=== PATIENT | male | born 1965 ===

== ENCOUNTER → 2021-05-19 11:36 | Outpatient (BNVA) | payer MEDICAID, SELFPAY | PROVIDERS: PCP Nurse Practitioner Primary Care; Referring Provider Nurse Practitioner Primary Care; Visit Provider Nurse Practitioner Family | DX: K59.04 Chronic idiopathic constipation (principal); K64.9 Unspecified hemorrhoids; N32.9 Bladder disorder, unspecified | CPT/HCPCS: 99202 ==

== ENCOUNTER → 2021-06-23 10:15 | Outpatient (BNVA) | payer MEDICAID, SELFPAY | PROVIDERS: PCP Nurse Practitioner Primary Care; Referring Provider Nurse Practitioner Primary Care; Visit Provider Nurse Practitioner Family | DX: Z12.11 Encounter for screening for malignant neoplasm of colon (principal); K59.04 Chronic idiopathic constipation | CPT/HCPCS: 99212 ==

== ENCOUNTER 2021-07-30 12:35 | Emergency (ER) | payer MEDICAID, SELFPAY ==
[2021-07-30 14:00] VITALS: BP 188/83; PULSE 68; RESP 18; TEMP 36.3; O2SAT 99; BMI 36.5
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
== END 2021-07-30 15:20 | disposition home or self-care (01) ==
PROVIDERS: Emergency Provider Emergency Medicine; PCP Nurse Practitioner Primary Care
DX: S16.1XXA Strain of muscle, fascia and tendon at neck level, initial encounter (principal); V43.52XA Car driver injured in collision with other type car in traffic accident, initial encounter; Y93.89 Activity, other specified; Y92.414 Local residential or business street as the place of occurrence of the external cause; Y99.8 Other external cause status
CPT/HCPCS: 99283

== ENCOUNTER → 2021-08-27 13:45 | Outpatient (BNVA) | payer MEDICAID, SELFPAY | PROVIDERS: PCP Nurse Practitioner Primary Care; Visit Provider Urology | DX: N40.1 Benign prostatic hyperplasia with lower urinary tract symptoms (principal); R33.9 Retention of urine, unspecified; R39.11 Hesitancy of micturition; R39.12 Poor urinary stream | CPT/HCPCS: 99202 ==

== ENCOUNTER 2021-09-23 10:30 | Day surgery (SDC) | payer MEDICAID, SELFPAY ==
[2021-09-18 11:57] VITALS: BMI 36.5
--- NOTE | 2021-09-22 11:46 | P.CONAN_ITS ---
Documented by User: Arianna Oliver NP 09/22/21 11:46 HPI - Anesthesia Eval Consult details Narrative: 56yo M for Colonoscopy PMFSH Active Problems Active Problems: All Active Problems (Updated 09/18/21 @ 12:01 by Natalie Santamaria, LUNA) Weak urinary stream (Acute) Incomplete emptying of bladder due to benign prostatic hyperplasia (Acute) Urinary hesitancy (Acute) Past Medical History Medical History Arthritis Diabetes GERD (gastroesophageal reflux disease) High cholesterol Hypertension Family History Family History Father Lung cancer Surgical History Surgical History Hx of foot surgery Hx of foot surgery Social History Social History Household Members: Spouse Alcohol intake: never Patient Tobacco Use Status: Former Tobacco user Quit Date: 2011 Use of substances other than those prescribed or required for medical reasons: No Have you been hit, kicked, punched, or otherwise hurt by someone within the past year? If so, by whom?: No Are you DNR?: No Advance Directives: No Advance Directives Information Provided: Yes Advance Directives on File: No Recently lost weight without trying: No Meds Allergies Allergy/AdvReac Type Severity Reaction Status Date / Time lisinopril Allergy COUGH Verified 09/18/21 11:56 Home Medications Medication Instructions Recorded Confirmed Last Taken Type losartan 50 mg 50 mg PO DAILY 06/23/21 09/18/21 Unknown History tablet tamsulosin 0.4 mg 0.4 mg PO 06/23/21 09/18/21 Unknown History capsule BEDTIME famotidine 20 mg 1 tab PO BEDTIME 09/18/21 09/18/21 Unknown History tablet hydrochlorothiazi 1 tab PO DAILY 09/18/21 09/18/21 Unknown History de 25 mg tablet metformin 500 mg 1 tab PO BID 09/18/21 09/18/21 Unknown History tablet,extended release 24 hr Exam Exam Date and Time: September 22, 2021 1146 Height,Weight and Vital Signs: Height 5 ft 8 in Weight 108.862 kg Assessment and Plan Assessment Anesthesia Assessment: Chart Reviewed Documented by User: Prudence Smith MD 09/23/21 12:33 PMFSH Past Medical History Medical History Arthritis Diabetes GERD (gastroesophageal reflux disease) High cholesterol Hypertension Family History Family History Father Lung cancer Surgical History Surgical History Hx of foot surgery Hx of foot surgery History of Problems with Anesthesia: No Social History Social History Household Members: Spouse Alcohol intake: never Patient Tobacco Use Status: Former Tobacco user Quit Date: 2011 Use of substances other than those prescribed or required for medical reasons: No Have you been hit, kicked, punched, or otherwise hurt by someone within the past year? If so, by whom?: No Are you DNR?: No Advance Directives: No Advance Directives Information Provided: Yes Advance Directives on File: No Recently lost weight without trying: No Meds Allergies Allergy/AdvReac Type Severity Reaction Status Date / Time lisinopril Allergy COUGH Verified 09/18/21 11:56 Home Medications Medication Instructions Recorded Confirmed Last Taken Type losartan 50 mg 50 mg PO DAILY 06/23/21 09/18/21 Unknown History tablet tamsulosin 0.4 mg 0.4 mg PO 06/23/21 09/18/21 Unknown History capsule BEDTIME famotidine 20 mg 1 tab PO BEDTIME 09/18/21 09/18/21 Unknown History tablet hydrochlorothiazi 1 tab PO DAILY 09/18/21 09/18/21 Unknown History de 25 mg tablet metformin 500 mg 1 tab PO BID 09/18/21 09/18/21 Unknown History tablet,extended release 24 hr Exam Airway Mallampati Class: III TM Dist: >3cm Neck ROM: Full Loose/Missing/Broken Teeth: Yes, Upper and Lower Heart: RRR Lungs: CTA Assessment and Plan Assessment Anesthesia Assessment: Anesthesia Plan Discussed Final Anesthetic Review History of Problems with Anesthesia: No NPO: Yes ASA Class: II Final Preanesthetic Review: Meds/Allgs Chart Reviewed, Consent Obtained/Reviewed and Anes Risks/Benef Reviewed Patient Risk: Low Procedure Risk: Low Anesthetic Plan Anesthetic Plan: MAC: Disposition: Standard PACU
[2021-09-23 11:08] VITALS: BP 141/87; PULSE 63; RESP 18; TEMP 36.2; O2SAT 97
--- NOTE | 2021-09-23 11:10 | MHC.SHP ---
Pre-Procedural Eval Section A Date of Service: 09/23/21 Section B Chief Complaint: Screening Relevant Family History (Specify if Yes): No Relevant Social History: None Present Medications: see Short Stay Collaborative assessment Medical History: Significant History (Arthritis Diabetes GERD (gastroesophageal reflux disease) High cholesterol Hypertension) History of Previous Operations: Relevant previous surgery/procedure and date(s) (foot surgery) Allergies: Allergies Allergy/AdvReac Type Severity Reaction Status Date / Time lisinopril Allergy COUGH Verified 09/18/21 11:56 Review of Systems Sugical H&P ROS: Negative: Constitution, Cardiovascular, Respiratory, Neurological, Psychiatric, Hem-Onc, Allergic/Immunologic, Gastrointestinal, Genitourinary, Musculoskeletal, Integumentary, Endocrine and Eyes/Ears/Nose/Throat Exam Surgical H&P Exam: Normal: HEENT, Normal: Heart, Normal: Lungs, Normal: Extremities, Normal: Abdomen, Normal: Skin and Normal: Neurological Plan Diagnosis/Plan: Unchanged I have reviewed the history and physical and performed a pertinent physical examination on my patient. No changes have occurred unless specified.
[2021-09-23 11:24] LABS: Glucose, Whole Blood 125 mg/dL (60-115)
[2021-09-23] MEDS: Lactated Ringers 1,000 ML 100 ML IVCONT (11:33)
--- NOTE | 2021-09-23 12:12 | P.OP_ITS ---
Operative Note Operative Note Date of Service: 09/23/21 Narrative: Operative Information Procedure Description: Colonoscopy COLONOSCOPY Instrument: Olympus variable stiffness pediatric scope 190L Colonoscopy Monitoring: Vital signs and clinical assessment, continuous EKG monitoring, Pulse oximetry, Carbon Dioxide monitoring and blood pressure monitoring were done throughout the procedure. Colon withdrawal time was 8 minutes. Procedure: The patient was placed in the left lateral decubitis position and pre-procedure medications were administered. After a digital rectal examination of the ano-rectum, the video colonoscope was inserted into the rectum and advanced through the colon to the cecum/TI. The colonoscope was slowly withdrawn in a retrograde panoramic fashion and the colon mucosa was carefully examined including a retroflexed view of the rectum. Findings and interventions are described below. Procedure Difficulty: easy Findings: Terminal Ileum-normal Right sided retroflexion was normal Cecum:normal Ascending Colon: normal Transverse Colon -normal Descending Colon:normal Sigmoid Colon: 12 mm semi pedunculated polyp removed with cold snare en bloc and retrieved Rectum: Retroflexion with small inflammed internal hemorrhoids, grade I Anorectum - normal Colon preparation: [place] Bowel Preparation Scale Right colon; 3 Transverse colon: 3 Left colon; 2 (0 = Unprepared colon segment with mucosa not seen due to solid stool that cannot be cleared. 1 = Portion of mucosa of the colon segment seen, but other areas of the colon segment not well seen due to staining, residual stool and/or opaque liquid. 2 = Minor amount of residual staining, small fragments of stool and/or opaque liquid, but mucosa of colon segment seen well. 3 = Entire mucosa of colon segment seen well with no residual staining, small fragments of stool or opaque liquid) Impression and Post Procedure Diagnosis: polyp internal hemorrhoids Plan: High fiber diet leaflet Avoid straining at stool, epsom salts and sitz bath, anusol supps or cream Repeat Colonoscopy in 3-5 years due to polyp or earlier if clinically indicated Above findings were reviewed with the patient and relevant handouts were provided if indicated.
--- NOTE | 2021-09-23 12:12 | PM.OP ---
Brief Operative Note Date of Service: 09/23/21 Pre-op diagnosis: screening colon Post-op diagnosis: same Procedure: see op note Surgeon: Darian Partida MD Anesthesia: MAC Was an Furniture Decals Inspector used for this Procedure?: No Estimated blood loss (mL): 0 Condition: stable Disposition: PACU
[2021-09-23 12:47] VITALS: BP 109/56; PULSE 61; RESP 18; TEMP 36.4; O2SAT 98
[2021-09-23 13:02] VITALS: BP 125/77; PULSE 62; RESP 19; TEMP 36.6; O2SAT 98
== END 2021-09-23 13:52 | disposition home or self-care (01) ==
PROVIDERS: PCP Nurse Practitioner Primary Care; Visit Provider Internal Medicine Gastroenterology
PROC: 0DJD8ZZ Inspection of Lower Intestinal Tract, Via Natural or Artificial Opening Endoscopic (ICD-10-PCS; CPT 45378; principal; 2021-09-23 12:10)
DX: Z12.11 Encounter for screening for malignant neoplasm of colon (principal); D12.5 Benign neoplasm of sigmoid colon; K64.0 First degree hemorrhoids; K59.04 Chronic idiopathic constipation; K21.9 Gastro-esophageal reflux disease without esophagitis; I10 Essential (primary) hypertension; E11.9 Type 2 diabetes mellitus without complications; E78.00 Pure hypercholesterolemia, unspecified; N40.1 Benign prostatic hyperplasia with lower urinary tract symptoms; R39.11 Hesitancy of micturition; R39.14 Feeling of incomplete bladder emptying; R39.12 Poor urinary stream; Z79.899 Other long term (current) drug therapy; Z88.8 Allergy status to other drugs, medicaments and biological substances; Z79.84 Long term (current) use of oral hypoglycemic drugs; Z87.891 Personal history of nicotine dependence
CPT/HCPCS: 45385; 82947; 88305

== ENCOUNTER → 2021-10-06 08:29 | Outpatient (BNVA) | payer MEDICAID, SELFPAY | PROVIDERS: PCP Nurse Practitioner Primary Care; Referring Provider Nurse Practitioner Primary Care; Visit Provider Nurse Practitioner Family | DX: K59.01 Slow transit constipation (principal); K21.9 Gastro-esophageal reflux disease without esophagitis; K64.8 Other hemorrhoids; D36.9 Benign neoplasm, unspecified site; Z98.890 Other specified postprocedural states | CPT/HCPCS: 99212 ==

== ENCOUNTER → 2021-12-24 09:41 | Outpatient (BNVA) | payer MEDICAID, SELFPAY | PROVIDERS: PCP Nurse Practitioner Primary Care; Visit Provider Urology | DX: R39.12 Poor urinary stream (principal); R97.20 Elevated prostate specific antigen [PSA] | CPT/HCPCS: 52000; 99212 ==

== ENCOUNTER → 2022-02-08 13:40 | Outpatient (BNVA) | payer MEDICAID, SELFPAY | PROVIDERS: PCP Nurse Practitioner Primary Care; Referring Provider Nurse Practitioner Primary Care; Visit Provider Nurse Practitioner Family | DX: K59.01 Slow transit constipation (principal); K64.9 Unspecified hemorrhoids; K21.9 Gastro-esophageal reflux disease without esophagitis; Z79.899 Other long term (current) drug therapy | CPT/HCPCS: 99212 ==

== ENCOUNTER 2022-08-26 07:33 | Outpatient (REF) | payer MEDICAID, SELFPAY ==
[2022-08-26 07:46] VITALS: BP 180/89; PULSE 85; RESP 16; TEMP 35.9; O2SAT 99; BMI 36.5
--- NOTE | 2022-08-26 08:29 | W.PM.OPN ---
Operative Note Operative Note Date of Service: 08/26/22 Narrative: Preoperative diagnosis: Elevated PSA Postoperative diagnosis: Elevated PSA 6.1 Procedure: 1. transrectal ultrasound measurement of prostate 2. transrectal ultrasound-guided pudendal nerve block 3. transrectal ultrasound-guided prostate biopsy 12 core Surgeon: Dr. Mati Mistry Anesthetic: Local Indications for procedure: Elevated PSA 6.1 Procedure: After informed consent was verified, the patient was brought into the procedure area and lay left-hand side down on the table. Patient identity confirmed. Perioperative antibiotics confirmed. Safety pause time out performed. BRIONNA performed to dilate rectal sphincter Iodine 10cc with Gel was placed per rectum Ultrasound probe was placed per rectum The prostate was measured in 3 dimensions Total volume equals 105 gm No cystic structures were noted Small calcifications were noted at the surgical margin The prostate was otherwise heterogenous in nature - bilateral swirls of tissue An ultrasound-guided pudendal nerve block was performed using 10 cc of 1% lidocaine. 8 cc was placed at the base and 2 cc of the apex. A 12 core biopsy was performed with 6 cores each side. Two cores were taken at the apex, mid and base. Cores were spaced between lateral and medial. He tolerated the procedure well. Was able to ambulate to bathroom after 5 minutes. Printed instructions regarding antibiotic use and common side effects such as low-grade temperature, potential infection and bleeding were given Pathology: 12 core prostate biopsy.
[2022-08-26 08:50] VITALS: BP 182/86; PULSE 85; RESP 16; O2SAT 99
== END 2022-08-26 07:34 | disposition home or self-care (01) ==
LOC: HO.MS 07:33
PROVIDERS: PCP Nurse Practitioner Primary Care; Visit Provider Urology
PROC: (CPT 55700; principal; 2022-08-26 08:00)
DX: R97.20 Elevated prostate specific antigen [PSA] (principal); N40.1 Benign prostatic hyperplasia with lower urinary tract symptoms; R39.11 Hesitancy of micturition; R33.9 Retention of urine, unspecified; I10 Essential (primary) hypertension; E78.00 Pure hypercholesterolemia, unspecified; E11.9 Type 2 diabetes mellitus without complications; Z79.84 Long term (current) use of oral hypoglycemic drugs; Z79.82 Long term (current) use of aspirin; Z79.899 Other long term (current) drug therapy; Z88.8 Allergy status to other drugs, medicaments and biological substances; Z87.891 Personal history of nicotine dependence
CPT/HCPCS: 55700; 76942; 88305

== ENCOUNTER → 2022-09-02 11:20 | Outpatient (BNVA) | payer MEDICAID, SELFPAY | PROVIDERS: PCP Nurse Practitioner Primary Care; Visit Provider Urology | DX: Z13.89 Encounter for screening for other disorder (principal) ==

== ENCOUNTER 2023-03-01 10:20 | Outpatient (REF) | payer MEDICAID, SELFPAY ==
[2023-03-01 12:03] LABS: Prostate Specific Antigen 7.97 ng/mL (<0.05-4.0)
[2023-03-01 12:04] LABS: PSA,Total (Free>4and<10) 8.07 ng/mL (0.00-4.00)
[2023-03-02 10:04] LABS: Free Prostate Spec Ag 1.3 ng/mL; Percent Free Prostate Spec Ag 18 % (calc) (>25); Prostate Specific Ag Total 7.3 ng/mL (< OR = 4.0)
== END 2023-03-01 10:21 | disposition home or self-care (01) ==
LOC: HO.HHCL 10:20
PROVIDERS: Visit Provider Urology
DX: Z12.5 Encounter for screening for malignant neoplasm of prostate (principal); N13.8 Other obstructive and reflux uropathy; R97.20 Elevated prostate specific antigen [PSA]; N40.1 Benign prostatic hyperplasia with lower urinary tract symptoms
CPT/HCPCS: 36415; 84153; 84154

== ENCOUNTER 2023-03-04 14:03 | Outpatient (AMB) | payer MEDICAID, SELFPAY ==
--- NOTE | 2023-03-04 14:35 | MHC.OFFVIS ---
Intake Intake Visit Reasons: 6M PSA(set) Intake Note: Patient is present for Follow Up PSA Urology Med: Terazosin, Finasteride, Antibiotic Allergy: None Blood Thinner: Aspirin PVR: 41ml Allergies lisinopril Allergy (Verified 03/04/23 14:43) COUGH Medication List - Last Reconciled 03/04/23 by Mati Mistry MD aspirin 325 mg PO DAILY blood sugar diagnostic (FreeStyle Lite Strips) As directed cholecalciferol (vitamin D3) 125 mcg PO DAILY ciprofloxacin HCl 500 mg PO BID 3 days docusate sodium 100 mg PO BEDTIME famotidine 20 mg PO BEDTIME finasteride 5 mg PO DAILY 90 days hydrochlorothiazide 1 tab PO DAILY hydrocortisone 2.5% (Proctosol HC) 1 appl OR BID-QID PRN lancets (FreeStyle Lancets) As directed lidocaine 5% 1 patch topical DAILY losartan 50 mg PO DAILY losartan 100 mg PO DAILY metformin ER 1 tab PO BID methocarbamol 750 mg PO TID PRN methylcellulose (laxative) (Citrucel) 500 mg PO DAILY sennosides (Natural Senna Laxative) 17.2 mg (2 x 8.6 mg) PO BEDTIME terazosin 5 mg PO BEDTIME 90 days HPI HPI Comments History of Present Illness Details Jered is a pleasant male. He is a patient of Dr. Yadav. He seen for the following urologic conditions - lower urinary tract symptoms - erectile dysfunction PVR 41 Current symptoms Combination therapy with finasteride and terazosin 5 mg Trial sildenafil 20 mg Erectile dysfunction in setting of diabetes Progressive Concurrent diagnoses include hypertension, diabetes Lower urinary tract symptoms Initial symptoms of urinary hesitancy and weakness of stream Ongoing for the past 2-3 years in progressive Was associated with episode of hematuria in March 2021 Cystoscopy 02/10 large bilobar prostate Therapy terazosin and finasteride Cystoscopy 01/10 bilobar hypertrophy PSA 04/11 7.8, 02/10 6.1, 03/13 7.3 18% Prostate biopsy 08/12 NAD 110gm on [facility] Medical History Arthritis Diabetes GERD (gastroesophageal reflux disease) High cholesterol Hypertension Tubular adenoma Surgical History Hx of colonoscopy Hx of foot surgery Hx of foot surgery Family History Father Lung cancer Social History Household Members: Spouse Alcohol intake: never Patient Tobacco Use Status: Former Tobacco user Quit Date: 2011 Review of Systems Const Denies chills and Denies fever(s) Card Reports no additional complaints and Denies syncope Resp Denies cough GI Denies abdominal pain and Denies heartburn Reports as per HPI and Denies change in libido Neuro Denies syncope Psych Denies change in libido Endo Denies change in libido Physical Exam Const General: cooperative, healthy appearing, comfortable and no acute distress Orientation/consciousness: patient oriented x3 HEENT Face and sinus: Yes normal facial exam Mouth: moist mucous membranes Neck Neck: Yes normal visual inspection, Yes full ROM and Yes trachea midline Chest Chest palpation & inspection: normal inspection of the chest Resp Effort & Inspection: normal respiratory effort, able to speak in complete sentences and no respiratory distress GI Inspection: Yes normal to inspection Back/Spine/Pelvis Cervical Spine: normal cervical lordosis Thoracic/Lumbar Spine: thoracic and lumbar spine normal to inspection Skin General skin exam: no rashes or lesions noted Neuro General: patient oriented x3, gait normal, tone normal and moves all extremities Extrem General: Yes normal to inspection and Yes capillary refill normal Office Procedures Post Void Residual Post Residual Void Post Void Residual (PVR): 41 [id number] Void Residual by ultrasound Assessment & Plan Assessment & Plan (1) Erectile dysfunction: Code(s): N52.9 - Male erectile dysfunction, unspecified Plan 2 month follow-up Orders: Orders Prostate Specific Antigen 03/01/23 R97.20 - Elevated prostate specific antigen [PSA] AMB Post Void Residual by ultrasound Today N40.1 - Benign prostatic hyperplasia with lower urinary tract symptoms, R33.9 - Retention of urine, unspecified Medications: New tadalafil 20 mg PO DAILY PRN 30 tabs 0RF sexual activity 30 days N52.9 - Male erectile dysfunction, unspecified Refilled finasteride 5 mg PO DAILY 90 days 90 tabs 1RF N13.8 - Other obstructive and reflux uropathy, N40.1 - Benign prostatic hyperplasia with lower urinary tract symptoms, R33.9 - Retention of urine, unspecified terazosin 5 mg PO BEDTIME 90 days 90 caps 1RF N40.1 - Benign prostatic hyperplasia with lower urinary tract symptoms, R33.9 - Retention of urine, unspecified, R35.0 - Frequency of micturition Patient Instructions: Imaging studies, laboratory and physical exam results were discussed and reviewed in detail. No major barriers to patient understanding were identified. An opportunity to ask questions regarding the treatment plan was provided. All questions were answered. The patient expressed understanding and agreement with the above treatment plan. The patient is aware they should contact our office by phone for worsening of their current condition or the appearance of new urologic symptoms. Compliance is encouraged with any medications and followup testing that is ordered. It is a privilege to participate in the urologic care of your patient. If you have any questions or concerns regarding treatment for the above conditions, or other urologic issues, please do not hesitate to contact me. The office telephone contact is [phone]. This note is constructed using voice recognition software. While every effort has been made to ensure accuracy radiology practitioner assistant errors may have been included. Yours sincerely, Dr Mati Mistry MD, [facility] - Urology Providers of Expert, Compassionate Care for the Genitourinary System Coding Level of Care Code Est Pt Level 4 (11288) Diagnoses Erectile dysfunction N52.9 CPT Codes Post Residual Void - PVR CPT Code: 61058-Nwkv Void Residual by ultrasound ([id number])
== END 2023-03-04 15:17 | disposition home or self-care (01) ==
PROVIDERS: Visit Provider Urology
DX: N52.9 Male erectile dysfunction, unspecified (principal)
CPT/HCPCS: 99214

== ENCOUNTER → 2023-03-04 14:03 | Outpatient (BNVA) | payer MEDICAID, SELFPAY | PROVIDERS: Visit Provider Urology | DX: N52.9 Male erectile dysfunction, unspecified (principal) | CPT/HCPCS: 51798; 99212 ==

== ENCOUNTER 2023-05-20 15:36 | Outpatient (AMB) | payer MEDICAID, SELFPAY ==
--- NOTE | 2023-05-20 15:36 | A.OFFVIS_ITS ---
Intake Intake Visit Reasons: 2m follow up Intake Note: Patient is Present for Telephone Follow Up Urology Med: Finasteride, Tadalafil, Terazosin(Patient is requesting Refill) Antibiotic Allergy: None Blood Thinner: Aspirin Pharam[facility]: [facility] Allergies lisinopril Allergy (Verified 03/04/23 14:43) COUGH Medication List - Last Reconciled 05/20/23 by Mati Mistry MD aspirin 325 mg PO DAILY blood sugar diagnostic (FreeStyle Lite Strips) As directed cholecalciferol (vitamin D3) 125 mcg PO DAILY ciprofloxacin HCl 500 mg PO BID 3 days docusate sodium 100 mg PO BEDTIME famotidine 20 mg PO BEDTIME finasteride 5 mg PO DAILY 90 days hydrochlorothiazide 1 tab PO DAILY hydrocortisone 2.5% (Proctosol HC) 1 appl [place] BID-QID PRN lancets (FreeStyle Lancets) As directed lidocaine 5% 1 patch topical DAILY losartan 50 mg PO DAILY losartan 100 mg PO DAILY metformin ER 1 tab PO BID methocarbamol 750 mg PO TID PRN methylcellulose (laxative) (Citrucel) 500 mg PO DAILY sennosides (Natural Senna Laxative) 17.2 mg (2 x 8.6 mg) PO BEDTIME tadalafil 5 mg PO DAILY 90 days tadalafil 20 mg PO DAILY PRN 30 days terazosin 5 mg PO BEDTIME 90 days HPI HPI Comments History of Present Illness Details Jered is a pleasant male. He is a patient of Dr. Yadav. He seen for the following urologic conditions - lower urinary tract symptoms - erectile dysfunction Telemedicine Evaluation 15 min Consultation DoxBDA Romina Video Combination therapy with finasteride and terazosin 5 mg Weak stream, worsening IPSS, known large prostate Interested in GreenLight laser Would like to proceed Did respond partially to tadalafil high dose. Start 5 mg daily with on demand Erectile dysfunction in setting of diabetes Progressive Concurrent diagnoses include hypertension, diabetes Tadalafil 20 mg on demand Lower urinary tract symptoms Initial symptoms of urinary hesitancy and weakness of stream Ongoing for the past 2-3 years in progressive Was associated with episode of hematuria in March 2021 Cystoscopy 02/10 large bilobar prostate Therapy terazosin and finasteride PSA 04/11 7.8, 02/10 6.1, 03/13 7.3 18% Prostate biopsy 08/12 NAD 110gm on [facility] Medical History Tubular adenoma Arthritis GERD (gastroesophageal reflux disease) High cholesterol Diabetes Hypertension Surgical History Hx of colonoscopy Hx of foot surgery Hx of foot surgery Family History Father Lung cancer Social History Household Members: Spouse Alcohol intake: never Patient Tobacco Use Status: Former Tobacco user Quit Date: 2011 Review of Systems Const All systems reviewed & are unremarkable except as noted in HPI and below Reports no additional complaints Resp Reports no additional complaints GI Reports no additional complaints Reports as per HPI Musc Reports no additional complaints Physical Exam Telemedicine evaluation Appropriate responses Regular breathing rate and rhythm HEENT Head: Yes normal to inspection Ears: hearing grossly normal bilaterally Eyes General: appearance normal, both eyes and all related structures Neck Neck: Yes normal visual inspection Chest Chest palpation & inspection: normal inspection of the chest Resp Effort & Inspection: normal respiratory effort and able to speak in complete sentences Assessment & Plan Assessment & Plan (1) Weak urinary stream: Code(s): R39.12 - Poor urinary stream (2) Bladder outlet obstruction: Code(s): N32.0 - Bladder-neck obstruction (3) Erectile dysfunction associated with type 2 diabetes mellitus: Code(s): E11.69 - Type 2 diabetes mellitus with other specified complication; N52.1 - Erectile dysfunction due to diseases classified elsewhere Plan Add daily tadalafil We discussed the nature of the decision and reasonable options for performing a prostate intervention. Interventions include TURP, GreenLight laser enucleation of the prostate, GreenLight laser ablation of the prostate, transurethral incision of the prostate, and I-Tend prostate procedure. Options such as medical therapy were discussed. The relative uncertainties and benefits related to each alternate procedure were adequately discussed. General surgical risks including, but not limited to, pain, bleeding, infection, myocardial infarction, pulmonary embolus, deep vein thrombosis and cerebrovascular accident which may result in further hospitalization were discussed. Full disclosure of the procedure as well as all major risks, benefits and complications were discussed including but not limited to damage to the urethra or bladder neck, recurrent BPH, retrograde ejaculation, bladder infection, urge, de lizet frequency, incomplete emptying, dysuria, remote chance of erectile dysfunction, epididymitis, and meatal stenosis. The success rate of the procedure was discussed. Success of the procedure in the short-term does not necessarily guarantee that long-term success will be maintained. Suitable follow up will need to be maintained. The patient showed understanding of discussion. An opportunity was provided for questions to be answered and wishes to proceed with the following procedure. - Laser prostatectomy Medications: New tadalafil 5 mg PO DAILY 90 days 90 tabs 0RF sexual activity E11.69 - Type 2 diabetes mellitus with other specified complication, N52.1 - Erectile dysfunction due to diseases classified elsewhere Patient Instructions: Imaging studies, laboratory and physical exam results were discussed and reviewed in detail. No major barriers to patient understanding were identified. An opportunity to ask questions regarding the treatment plan was provided. All questions were answered. The patient expressed understanding and agreement with the above treatment plan. The patient is aware they should contact our office by phone for worsening of their current condition or the appearance of new urologic symptoms. Compliance is encouraged with any medications and followup testing that is ordered. It is a privilege to participate in the urologic care of your patient. If you have any questions or concerns regarding treatment for the above conditions, or other urologic issues, please do not hesitate to contact me. The office telephone contact is [phone]. This note is constructed using voice recognition software. While every effort has been made to ensure accuracy patient services manager errors may have been included. Yours sincerely, Dr Mati Mistry MD, [facility] - Urology Providers of Expert, Compassionate Care for the Genitourinary System Telehealth Telehealth Location of provider rendering services: practice address Location of patient: address on file Patient Identification confirmed using: Name, : Yes Telehealth method: video Patient verbally consented to treatment: Yes Patient verbally consented to billing insurance company: Yes Patient informed of any privacy concerns related to visit: Yes Coding Level of Care Code Tele Est Pt Level 4 (45881) Diagnoses Weak urinary stream R39.12 Bladder outlet obstruction N32.0 Erectile dysfunction associated with type 2 diabetes mellitus E11.69; N52.1
== END 2023-05-20 16:07 | disposition home or self-care (01) ==
LOC: HO.HUSH 15:36
PROVIDERS: PCP Nurse Practitioner Primary Care; Visit Provider Urology
DX: R39.12 Poor urinary stream (principal); N32.0 Bladder-neck obstruction; E11.69 Type 2 diabetes mellitus with other specified complication; N52.1 Erectile dysfunction due to diseases classified elsewhere
CPT/HCPCS: 99214

== ENCOUNTER → 2023-05-20 15:36 | Outpatient (BNVA) | payer MEDICAID, SELFPAY | PROVIDERS: PCP Nurse Practitioner Primary Care; Visit Provider Urology ==

== ENCOUNTER 2023-07-17 01:35 | Inpatient (IN) | payer MEDICAID, SELFPAY ==
[2023-07-17] VITALS (13 sets, daily range): BP systolic 138–204; BP diastolic 63–96; PULSE 51–84; RESP 10–18; TEMP 36.1–36.9; O2SAT 93–99; BMI 36.5
--- NOTE | ~2023-07-17 | US_ITS ---
EXAMINATION: US ABDOMEN LIMITED CLINICAL INFORMATION: Right upper quadrant pain and leukocytosis. COMPARISON: None available. TECHNIQUE: Real-time imaging of the right upper quadrant abdominal viscera. FINDINGS: PANCREAS: The visualized proximal portion of the pancreas is unremarkable. The distal portion is obscured secondary to overlying bowel gas. LIVER: The liver is normal in size. The liver contour is normal. Parenchymal echogenicity is normal. No focal hepatic lesion. There is no intrahepatic biliary duct dilatation seen. GALLBLADDER: Multiple gallstones are present, including at the gallbladder neck. Gallbladder wall appears mildly thickened to 0.5 cm. Trace pericholecystic fluid. Right upper quadrant tenderness was reported during the exam. COMMON BILE DUCT: Normal in caliber measuring 0.5 cm in diameter. RIGHT KIDNEY: No hydronephrosis. No renal calculi or focal parenchymal lesions. The kidney measures 11.2 cm in maximum dimension. FREE FLUID: None. US/US abdomen limited IMPRESSION: Cholelithiasis with mild gallbladder wall thickening and trace pericholecystic fluid, suspicious for acute cholecystitis in the proper clinical setting.
[2023-07-17 02:02] LABS: Mean Corpuscular Hemoglobin 29.5 pg (27.0-33.0)
[2023-07-17 02:03] LABS: Hematocrit 38.5 % (42.0-52.0); Hemoglobin 12.7 g/dl (14.0-18.0); Mean Corpuscular Volume 89.5 fL (80.0-98.0); Mean Platelet Volume 13.3 fL (9.4-12.4); Platelet Count 131 X10*3/uL (160-400)
[2023-07-17 02:12] LABS: PLT ABN DIST 1; WBC ABN SCTR FOR CBC 1
[2023-07-17 02:19] LABS: Alanine Aminotransferase 19 U/L (0-40); Albumin Level 4.6 g/dL (3.5-5.0); Alkaline Phosphatase 74 U/L (39-117); Anion Gap 13 (12-20); Aspartate Amino Transferase 15 U/L (5-37); Bilirubin Direct < 0.2 mg/dL (0.0-0.5); Bilirubin Total 0.2 mg/dL (0.0-1.0); Blood Urea Nitrogen 23 mg/dL (9-16); Calcium 9.8 mg/dL (8.4-10.2); Carbon Dioxide 28 mmol/L (22-29); Chloride 102 mmol/L (96-108); Creatinine Clr Calc Pharmacy 81.2; Estimated Glomerular Filt Rate > 60; Glucose Random 119 mg/dL (60-115); Lipase 30 U/L (8-78); Potassium 3.9 mmol/L (3.3-5.1); Sodium 139 mmol/L (135-145)
[2023-07-17 02:40] LABS: Atypical Lymphs Percent Manual 3 % (0-6); Band Neutrophils Percent 0 % (3-5); Eosinophils Percent Manual 3 % (0-4); Lymphocytes Percent Manual 32 % (20-40); Monocytes Percent Manual 4 % (2-11); Neutrophils Percent Manual 57 % (45-73); Promyelocytes Percent 1 %; RBC Morphology NORMAL
[2023-07-17 02:41] LABS: Large Platelet PRESENT; Platelet Estimate NORMAL (NORMAL); Platelet Morphology Comment NORMAL; Spherocytes 3+ (>5) /OIF
[2023-07-17 02:43] LABS: Atypical Lymph Absolute Manual 0.4 x10*3/uL; Eosinophils Absolute Manual 0.4 X10*3/uL (0.0-0.4); Lymphocytes Absolute Manual 3.9 X10*3/uL (1.2-4.9); Monocytes Absolute Manual 0.5 X10*3/uL (0.1-1.2); Neutrophils Absolute Manual 6.9 X10*3/uL (2.0-8.3); Promyelocytes Absolute 0.1 X10*3/uL; White Blood Count 12.1 X10*3/uL (4.8-10.8)
--- NOTE | 2023-07-17 02:52 | ED.ABDPAIN ---
HPI - Abdominal Pain General Chief Complaint: Abdominal Pain Stated Complaint: stomach pain ? Time Seen by Provider: 07/17/23 02:43 Source: patient Mode of arrival: ambulatory Limitations: no limitations History of Present Illness HPI narrative: A 58-year-old male came in for evaluation of RUQ abdominal pain since 20:00 after eating pizza with pepperoni, had similar pain about 2 weeks ago did not seek medical attention because it did not last that long and it was not severe, patient had nausea and vomiting x3. No diarrhea. Normal bowel movement this morning and passing gas. No history of intra-abdominal surgery. Related Data Home Medications Medication Instructions Recorded Confirmed hydrochlorothiazide 25 mg tablet 1 tab PO DAILY 09/18/21 07/12/23 metformin 500 mg tablet,extended 1 tab PO BID 09/18/21 07/12/23 release 24 hr lidocaine 5 % topical patch 1 patch topical DAILY 10/06/21 07/12/23 losartan 100 mg tablet 100 mg PO DAILY 03/30/22 07/12/23 aspirin 325 mg tablet,delayed 325 mg PO DAILY 08/06/22 07/12/23 release cholecalciferol (vitamin D3) 125 125 mcg PO DAILY 08/06/22 07/12/23 mcg (5,000 unit) capsule blood sugar diagnostic (FreeStyle #10 ea 03/04/23 05/20/23 Lite Strips) lancets 28 gauge (FreeStyle #100 ea 03/04/23 05/20/23 Lancets) Previous Rx's Medication Instructions Recorded methylcellulose (laxative) 500 mg 500 mg PO DAILY #30 tabs 06/23/21 tablet (Citrucel) methocarbamol 750 mg tablet 750 mg PO TID PRN muscle spasm #20 07/30/21 tabs hydrocortisone 2.5 % topical cream 1 appl [place] BID-QID PRN hemorrhoids 10/06/21 with perineal applicator #30 grams (Proctosol HC) docusate sodium 100 mg capsule 100 mg PO BEDTIME #90 caps 02/08/22 famotidine 20 mg tablet 20 mg PO BEDTIME #90 tabs 02/08/22 sennosides 8.6 mg tablet (Natural 17.2 mg (2 x 8.6 mg) PO BEDTIME 02/08/22 Senna Laxative) constipation #180 tabs ciprofloxacin HCl 500 mg tablet 500 mg PO BID 3 days #6 tabs 08/06/22 finasteride 5 mg tablet 5 mg PO DAILY 90 days #90 tabs 03/04/23 terazosin 5 mg capsule 5 mg PO BEDTIME 90 days #90 caps 03/04/23 tadalafil 20 mg tablet 20 mg PO DAILY PRN sexual activity 05/20/23 30 days #30 tabs tadalafil 5 mg tablet 5 mg PO DAILY sexual activity 90 05/20/23 days #90 tabs Allergies Allergy/AdvReac Type Severity Reaction Status Date / Time lisinopril Allergy COUGH Verified 07/17/23 01:42 Review of Systems Review of Systems All other systems are reviewed and are negative Constitutional: Reports as per HPI and Reports no additional constitutional complaints Eyes: Reports as per HPI and Reports no additional eye complaints Reports system reviewed and no additional complaints, except as documented Cardiovascular: Reports as per HPI and Reports no additional cardiovascular complaints Respiratory: Reports as per HPI and Reports no additional respiratory complaints Gastrointestinal: Reports as per HPI and Reports no additional gastrointestinal complaints Genitourinary: Reports no additional female genitourinary complaints Musculoskeletal: Reports no additional musculoskeletal complaints Skin/Breast: Reports system reviewed and no additional complaints, except as docu Psychiatric: Reports no additional psychiatric complaints Endocrine: Reports no additional endocrine complaints Hematologic/Lymphatic: Reports no additional hematologic/lymphatic complaints Allergic/Immunologic: Reports no additional allergic/immunologic complaints Reports system reviewed and no additional complaints, except as documented and Reports Abnormal speech present [facility] Past Medical History Medical History Tubular adenoma Arthritis GERD (gastroesophageal reflux disease) High cholesterol Diabetes Hypertension Surgical History Hx of prostate biopsy Hx of colonoscopy Hx of foot surgery Hx of foot surgery Family History Family History Father Lung cancer Social History Household Members: Spouse Alcohol intake: never Patient Tobacco Use Status: Former Tobacco user Quit Date: 2011 Smoked in Last 30 Days: No Use of substances other than those prescribed or required for medical reasons: No Advance Directives: No Advance Directives Information Provided: Yes Physical Exam ED Vital Signs: Vital Signs - 24 hr 07/17/23 01:36 07/17/23 01:44 07/17/23 04:57 Temperature 97.9 F 98.4 F Pulse Rate 77 58 Respiratory Rate 18 16 Blood Pressure 204/96 H 148/81 H Pulse Oximetry 99 97 Oxygen Delivery Method Room Air Room Air BMI result Body Mass Index 36.5 Vital signs have been reviewed and appear to be correct. Blood pressure elevated. Heart rate normal. Respiratory rate normal. Temperature normal. Oxygen saturation normal. Appearance: Alert. Oriented X3. No acute distress. Head: Normal external exam. Normocephalic. Atraumatic. No Brower signs noted. No raccoon eyes noted Eyes: PERRLA. EOMI. Conjunctiva and sclera normal. Eyelids normal. ENT: TM's Normal. Pharynx normal. Uvula midline. Moist mucous membranes. No trismus noted. No drooling noted. No muffled voice noted. Neck: Normal inspection. Neck supple. FROM. No adenopathy. Thyroid Normal. No meningeal signs. No neck mass noted. CVS: Normal heart rate and rhythm. Heart sound normal. No murmurs noted. Pulses normal throughout. Respiratory: No respiratory distress. Painless inspiration. Breath sounds normal. No wheezes/rales/rhonchi noted. Chest nontender. No accessory muscle usage noted or decreased air movement noted. Abdomen: Soft, RUQ tenderness, no guarding, no rebound tenderness, positive Osorio's sign, Bowel sounds normal in all 4 quadrants. No distention noted. No organomegaly noted. No visible injury noted. Back: No CVA tenderness. Full range of motion noted. Skin: Skin warm and dry. Normal skin color. Normal skin turgor. No rashes/lesions/lacerations noted. Extremities: No lower extremity edema. Extremities exhibit normal range of motion. Extremities nontender. Neuro: Oriented X 3. Cranial nerve exam: II-XII are grossly intact No motor deficit. No sensory deficit. Reflexes normal. Course Reevaluation(s) Reevaluation #1: 58-year-old male with acute cholecystitis was given Zosyn the case was discussed with Dr. Parsons will admit to the surgical service. Time: 05:23 Medical Decision Making Differential Diagnosis Differential Diagnoses: The differential diagnosis associated with the presentation includes (Cholelithiasis, acute cholecystitis, pancreatitis, gastritis, electrolyte abnormality, severe anemia, UTI.) Admission/Observation Consideration of admission/observation: Escalation of care including admission/observation considered Consult Healthcare Provider Management of the patient was discussed with: [employer] Protection Fabricator (Dr. Simons) Lab Data MDM Lab Attestation statement: I reviewed the patient's lab results. 07/17/23 01:57 07/17/23 01:57 Labs: Lab Results 07/17/23 07/17/23 Range/Units 01:57 02:46 WBC 12.1 H (4.8-10.8) X10*3/uL RBC 4.30 L (4.60-5.80) X10*6/uL Hgb 12.7 L (14.0-18.0) g/dl Hct 38.5 L (42.0-52.0) % MCV 89.5 (80.0-98.0) fL MCH 29.5 (27.0-33.0) pg MCHC 33.0 (31.0-36.0) g/dl RDW 12.0 (11.0-16.0) % Plt Count 131 L (160-400) X10*3/uL MPV 13.3 H (9.4-12.4) fL Immature Gran % (Auto) Cancelled Neut % (Auto) Cancelled Lymph % (Auto) Cancelled Kinney % (Auto) Cancelled Eos % (Auto) Cancelled Baso % (Auto) Cancelled Lymph # (Auto) Cancelled Kinney # (Auto) Cancelled Eos # (Auto) Cancelled Baso # (Auto) Cancelled Abs Immat Gran (auto) Cancelled Absolute Neuts (auto) Cancelled Absolute Nucleated RBC 0.000 (0.0-0.012) X10*3/uL Nucleated RBC % (auto) 0.0 (0.0-0.2) /100WBC Neutrophils % (Manual) 57 (45-73) % Band Neutrophils % 0 L (3-5) % Lymphocytes % (Manual) 32 (20-40) % Atypical Lymphs % (Man) 3 (0-6) % Monocytes % (Manual) 4 (2-11) % Eosinophils % (Manual) 3 (0-4) % Promyelocytes % 1 % Abs Neuts (Manual) 6.9 (2.0-8.3) X10*3/uL Lymphocytes # (Manual) 3.9 (1.2-4.9) X10*3/uL Atyp Lymphs # (Manual) 0.4 x10*3/uL Monocytes # (Manual) 0.5 (0.1-1.2) X10*3/uL Eosinophils # (Manual) 0.4 (0.0-0.4) X10*3/uL Promyelocytes # 0.1 X10*3/uL Platelet Estimate NORMAL (NORMAL) Large Platelets PRESENT Plt Morphology Comment NORMAL RBC Morphology NORMAL Spherocytes 3+ (>5) /OIF Sodium 139 (135-145) mmol/L Potassium 3.9 (3.3-5.1) mmol/L Chloride 102 (96-108) mmol/L Carbon Dioxide 28 (22-29) mmol/L Anion Gap 13 (12-20) BUN 23 H (9-16) mg/dL Creatinine 1.20 (0.5-1.4) mg/dL Estim Creat Clear Calc 81.2 Estimated GFR > 60 Random Glucose 119 H (60-115) mg/dL Calcium 9.8 (8.4-10.2) mg/dL Total Bilirubin 0.2 (0.0-1.0) mg/dL Direct Bilirubin < 0.2 (0.0-0.5) mg/dL AST 15 (5-37) U/L ALT 19 (0-40) U/L Alkaline Phosphatase 74 (39-117) U/L Total Protein 8.0 (6.5-8.0) g/dL Albumin 4.6 (3.5-5.0) g/dL Lipase 30 (8-78) U/L Urine Color Yellow Urine Appearance Clear Urine pH 5.5 (5.0-9.0) Ur Specific [place] 1.025 (1.005-1.025) Urine Protein 100 (2+) H (Neg-Trace) mg/dL Urine Glucose (UA) Negative (Negative) mg/dL Urine Ketones Negative (Negative) mg/dL Urine Blood Negative (Negative) Urine Nitrite Negative (Negative) Ur Leukocyte Esterase Negative (Negative) Urine RBC 0-2 (0-2) /HPF Urine WBC 0-5 (0-5) /HPF Ur Squamous Epith Cells 0-2 (0-2) /HPF Urine Bacteria None Seen (None Seen) Hyaline Casts 0-2 (0-2) /LPF Independent Interpretation I performed an independent interpretation of an: Ultrasound (Limited abdomen: Acute cholecystitis.) Radiology Impression Discussion of test interpretation with radiology: I have reviewed the radiologist's reading. Medications Administered Discontinued Medications Generic Name Dose Route Start Last Admin Trade Name Freq PRN Reason Stop Dose Admin Piperacillin Sod/Tazobactam 50 mls @ 100 mls/hr 07/17/23 04:32 07/17/23 05:00 Sod 3.375 gm/ Sodium Chloride IV 07/17/23 05:01 100 mls/hr ONCE ONE Administration Morphine Sulfate 2 mg 07/17/23 02:53 07/17/23 03:39 Morphine Sulfate 2 Mg/Ml Cartridge IVPUSH 07/17/23 02:54 2 mg ONCE ONE Administration Protocol Ondansetron HCl 4 mg 07/17/23 02:53 07/17/23 03:39 Ondansetron Hcl 4 Mg/2 Ml Vial IVPUSH 07/17/23 02:54 4 mg ONCE ONE Administration Discharge Plan Discharge Clinical Impression: Acute calculous cholecystitis Patient Disposition: Admitted As Inpatient Prescriptions: No Action methocarbamol 750 mg tablet 750 mg PO TID PRN (Reason: muscle spasm) Qty: 20 0RF hydrochlorothiazide 25 mg tablet 1 tab PO DAILY metformin 500 mg tablet extended release 24 hr 1 tab PO BID Citrucel 500 mg tablet 500 mg PO DAILY Qty: 30 6RF Rx Instructions: take it with full glass of water lidocaine 5 % adhesive patch,medicated 1 patch topical DAILY hydrocortisone [Proctosol HC] 2.5 % cream with perineal applicator 1 appl FL BID-QID PRN (Reason: hemorrhoids) Qty: 30 2RF losartan 100 mg tablet 100 mg PO DAILY ciprofloxacin HCl 500 mg tablet 500 mg PO BID 3 Days Qty: 6 0RF Rx Instructions: Take antibiotics day before, day of, and day after procedure (DME) lancets [FreeStyle Lancets] 28 gauge misc See Rx Instructions .ROUTE BID Qty: 100 Rx Instructions: As directed (DME) FreeStyle Lite Strips Strip See Rx Instructions .ROUTE BID-TID Qty: 10 Rx Instructions: As directed finasteride 5 mg tablet 5 mg PO DAILY 90 Days Qty: 90 1RF terazosin 5 mg capsule 5 mg PO BEDTIME 90 Days Qty: 90 1RF tadalafil 20 mg tablet 20 mg PO DAILY PRN (Reason: sexual activity) 30 Days Qty: 30 0RF sennosides [Natural Senna Laxative] 8.6 mg tablet 17.2 mg PO BEDTIME Qty: 180 4RF docusate sodium 100 mg capsule 100 mg PO BEDTIME Qty: 90 4RF famotidine 20 mg tablet 20 mg PO BEDTIME Qty: 90 4RF cholecalciferol (vitamin D3) 125 mcg (5,000 unit) capsule 125 mcg PO DAILY aspirin 325 mg tablet,delayed release (DR/EC) 325 mg PO DAILY tadalafil 5 mg tablet 5 mg PO DAILY 90 Days Qty: 90 0RF
[2023-07-17 02:59] LABS: Appearance Urine Clear; Color Urine Yellow; Glucose Urine UA Negative (Negative); Leukocyte Esterase Urine Negative (Negative); Nitrite Urine Negative (Negative); PH 5.5 (5.0-9.0); Specific Gravity - Urine 1.025 (1.005-1.025); UMIC TRIGGER UACC YES; Urine Blood Negative (Negative); Urine Ketones Negative (Negative); Urine Protein 100 (2+) mg/dL (Neg-Trace)
--- NOTE | 2023-07-17 03:32 | PC.NURSE ---
delay in medication administration due to pt being in ultrasound.
[2023-07-17 03:33] LABS: Bacteria Urine None Seen (None Seen); Hyaline Casts Urine 0-2 /LPF (0-2); RBC Urine 0-2 /HPF (0-2); Squamous Epithelial Cell Urine 0-2 /HPF (0-2); WBC Urine 0-5 /HPF (0-5)
[2023-07-17] MEDS: ondansetron HCL 4 MG/2 ML VIAL IVPUSH ×3 (03:39→12:27)
[2023-07-17] MEDS: Morphine Sulfate 2 MG/ML CARTRIDGE IVPUSH (03:39)
--- NOTE | 2023-07-17 04:08 | PC.NURSE ---
pt a&ox4, respirations even and unlabored. pt reporting upper right quadrant pain for 7 hours that has not subsided. pt reports nausea with 3 episodes of vomiting since being in the ER. pt abdomen soft but tender to touch in the right upper quadrant. pt denies chest pain, diarrhea, and constipation. pt resting in stretcher comfortably.
[2023-07-17] MEDS: Piperacillin Sodium/Tazobactam 3.375 GM in 0.9 % Sodium Chloride 50 ML IV ×3 (05:00→19:50)
[2023-07-17] MEDS: Dextrose 5 % and 0.9 % NaCl 1,000 ML 100 ML IVCONT (06:16)
--- NOTE | 2023-07-17 06:20 | PC.NURSE ---
pt ambulated with steady gait to bathroom, denies dizziness and sob.
--- NOTE | 2023-07-17 08:32 | PC.NURSE ---
assumed care of pt at 0700. pt a&o x4, pleasant, calm, and cooperative. pt resting quietly on stretcher in no apparent distress. denies pain. fluids infusing per mar. pt NPO. rr even/unlabored. call luo within reach. plan of care ongoing.
--- NOTE | 2023-07-17 09:48 | PHA.MEDREC ---
Pharmacy Consult ? Medication Reconciliation Pharmacy has completed the medication reconciliation. spoke with patient to confirm medications. He said he ran out of his medications for constipation about a month ago and has not been taking them (docusate and senna). He was unsure if his tadalafil was 5mg or 20mg and stop and shop confirmed 20mg, patient also explained that he only takes as needed and not daily.
[2023-07-17 10:46] LABS: Glucose, Whole Blood 90 mg/dL (60-115)
--- NOTE | 2023-07-17 10:46 | PC.NURSE ---
poc taken on pt. poc 90 and documented in worklist. pt sts he takes his poc 4x daily. pt NPO, D5NS infusing but pump keeps beeping. will attempt to place additional line. spoke with Dr. Simons, pt to OR for gene wynne later afternoon .
--- NOTE | 2023-07-17 11:07 | PC.NURSE ---
20G placed to RAC. LAC IV good for IV push but not IV infusion.
[2023-07-17] MEDS: Losartan Potassium 50 MG TABLET 100 MG PO (11:15)
--- NOTE | 2023-07-17 12:36 | PC.NURSE ---
report given to LUNA Hernandez. pt to be transported to unit.
--- NOTE | 2023-07-17 13:37 | HO.ANESPROP2 ---
HPI - Anesthesia Eval Consult details Narrative: Cholelithiasis PMFSH Active Problems Active Problems: All Active Problems (Updated 07/17/23 @ 05:25 by Shelbie Marinelli MD) Acute calculous cholecystitis (Acute) Erectile dysfunction associated with type 2 diabetes mellitus (Acute) Bladder outlet obstruction (Acute) Erectile dysfunction (Acute) Elevated PSA (Acute) Urinary hesitancy (Acute) Incomplete emptying of bladder due to benign prostatic hyperplasia (Acute) Weak urinary stream (Acute) Tubular adenoma (Acute) Past Medical History Medical History Tubular adenoma Arthritis GERD (gastroesophageal reflux disease) High cholesterol Diabetes Hypertension Family History Family History Father Lung cancer Family history of problems with anesthesia: No Surgical History Surgical History Hx of prostate biopsy Hx of colonoscopy Hx of foot surgery Hx of foot surgery History of Problems with Anesthesia: No Social History Household Members: Significant Other Housing: Apartment Do you presently have visiting nurse or other home services: No Alcohol intake: never Patient Tobacco Use Status: Former Tobacco user Quit Date: 2011 Smoked in Last 30 Days: No Use of substances other than those prescribed or required for medical reasons: No Currently Displaying Signs/Symptoms of Drug Intoxication Withdrawal: No Have you been hit, kicked, punched, or otherwise hurt by someone within the past year? If so, by whom?: No Do you feel safe in your current relationship?: Yes Is there a partner from a previous relationship who is making you feel unsafe now?: No Are you made to feel afraid or neglected: No Advance Directives: No Advance Directives Information Provided: Yes Advance Directives on File: No Do you have thoughts of harming others: None Do you have a plan to hurt others: No Plan Recently lost weight without trying: No Nutrition Risks: No Nutritional Risk Poor oral hygiene: No Meds Allergies Allergy/AdvReac Type Severity Reaction Status Date / Time lisinopril Allergy COUGH Verified 07/17/23 01:42 Active Medications: Current Medications Dextrose/Sodium Chloride (D5ns) 1,000 mls @ 100 mls/hr IVCONT .Q10H [facility] Last Infusion: 07/17/23 10:34 Dose: 0 mls/hr Piperacillin Sod/Tazobactam (Sod 3.375 gm/ Sodium Chloride) 50 mls @ 100 mls/hr IV RQ6H [facility] Last Infusion: 07/17/23 13:17 Dose: Infused Ketorolac Tromethamine (Ketorolac Tromethamine 30 Mg/Ml Vial) 30 mg IVPUSH Q6H PRN PRN Reason: Pain, Mild (Pain Scale 1-3) Stop: 07/22/23 05:22 Losartan Potassium (Losartan Potassium 50 Mg Tablet) 100 mg PO DAILY [facility]; Protocol Last Admin: 07/17/23 11:15 Dose: 100 mg Ondansetron HCl (Ondansetron Hcl 4 Mg/2 Ml Vial) 4 mg IVPUSH RQ6H [facility] Last Admin: 07/17/23 12:27 Dose: 4 mg Sodium Chloride (0.9 % Sodium Chloride Flush 3 Ml Syringe) 3 ml IVFLUSH QSHIFT [facility] Last Admin: 07/17/23 07:14 Dose: Not Given Home Medications Medication Instructions Recorded Confirmed Last Taken Type metformin 500 mg tablet,extended 1 tab PO BIDWM 09/18/21 07/17/23 Unknown History release 24 hr losartan 100 mg tablet 100 mg PO DAILY 03/30/22 07/17/23 Unknown History blood sugar diagnostic (FreeStyle #10 ea 03/04/23 05/20/23 Unknown History Lite Strips) lancets 28 gauge (FreeStyle #100 ea 03/04/23 05/20/23 Unknown History Lancets) famotidine 20 mg tablet 1 tab PO BEDTIME PRN heartburn 07/17/23 07/17/23 Unknown History Exam Height,Weight and Vital Signs: Height 5 ft 8 in Weight 108.862 kg Last Vital Signs Temp 97 F 07/17/23 13:06 Pulse 63 07/17/23 13:06 Resp 18 07/17/23 13:06 BP 195/95 H 07/17/23 13:06 Pulse Ox 98 07/17/23 13:06 O2 Del Method Room Air 07/17/23 13:06 Pertinent Lab Results Pertinent Lab Results: Laboratory Tests 07/17/23 07/17/23 07/17/23 01:57 02:46 10:43 WBC 12.1 H RBC 4.30 L Hgb 12.7 L Hct 38.5 L MCV 89.5 MCH 29.5 MCHC 33.0 RDW 12.0 Plt Count 131 L MPV 13.3 H Immature Gran % (Auto) Cancelled Neut % (Auto) Cancelled Lymph % (Auto) Cancelled [place] % (Auto) Cancelled Eos % (Auto) Cancelled Baso % (Auto) Cancelled Lymph # (Auto) Cancelled [place] # (Auto) Cancelled Eos # (Auto) Cancelled Baso # (Auto) Cancelled Abs Immat Gran (auto) Cancelled Absolute Neuts (auto) Cancelled Absolute Nucleated RBC 0.000 Nucleated RBC % (auto) 0.0 Neutrophils % (Manual) 57 Band Neutrophils % 0 L Lymphocytes % (Manual) 32 Atypical Lymphs % (Man) 3 Monocytes % (Manual) 4 Eosinophils % (Manual) 3 Promyelocytes % 1 Abs Neuts (Manual) 6.9 Lymphocytes # (Manual) 3.9 Atyp Lymphs # (Manual) 0.4 Monocytes # (Manual) 0.5 Eosinophils # (Manual) 0.4 Promyelocytes # 0.1 Platelet Estimate NORMAL Large Platelets PRESENT Plt Morphology Comment NORMAL RBC Morphology NORMAL Spherocytes 3+ (>5) Sodium 139 Potassium 3.9 Chloride 102 Carbon Dioxide 28 Anion Gap 13 BUN 23 H Creatinine 1.20 Estim Creat Clear Calc 81.2 Estimated GFR > 60 POC Glucose 90 Random Glucose 119 H Calcium 9.8 Total Bilirubin 0.2 Direct Bilirubin < 0.2 AST 15 ALT 19 Alkaline Phosphatase 74 Total Protein 8.0 Albumin 4.6 Lipase 30 Urine Color Yellow Urine Appearance Clear Urine pH 5.5 Ur Specific [place] 1.025 Urine Protein 100 (2+) H Urine Glucose (UA) Negative Urine Ketones Negative Urine Blood Negative Urine Nitrite Negative Ur Leukocyte Esterase Negative Urine RBC 0-2 Urine WBC 0-5 Ur Squamous Epith Cells 0-2 Urine Bacteria None Seen Hyaline Casts 0-2 Airway Mallampati Class: II TM Dist: >3cm Neck ROM: Full Partial: Upper and Lower Loose/Missing/Broken Teeth: No Heart: RRR Lungs: CTA Assessment and Plan Assessment Anesthesia Assessment: Anesthesia Plan Discussed and Chart Reviewed Final Anesthetic Review Family History of Problems with Anesthesia: No History of Problems with Anesthesia: No NPO: Yes ASA Class: III Final Preanesthetic Review: No Changes in Pt Med Stat, Meds/Allgs Chart Reviewed, Consent Obtained/Reviewed and Anes Risks/Benef Reviewed Patient Risk: Intermediate Procedure Risk: Intermediate Anesthetic Plan Anesthetic Plan: GA Disposition: Standard PACU
--- NOTE | 2023-07-17 14:36 | P.HPGS_ITS ---
History of Present Illness History of Present Illness Date of Service: 07/17/23 Chief complaint: abd pain Narrative: Jered Do is a 58 year old male Who has been having abdominal pain over the last couple of weeks but last night it got worse. As result he came into the emergency room. He denied any nausea vomiting no fevers or chills. Here in the ER blood work was done and LFTs were normal but ultrasound showed thickened gallbladder with pericholecystic fluid and tenderness in the right upper quadrant area. Otherwise the patient denies any significant other issues. He is supposed to have some urology procedure tomorrow he says as he has had some issues with his prostate and sees Dr. Mistry for this Review of Systems Review of Systems: Yes all other systems are reviewed and are negative PMFSH Past Medical History Medical History Tubular adenoma Arthritis GERD (gastroesophageal reflux disease) High cholesterol Diabetes Hypertension Family History Family History Father Lung cancer Surgical History Surgical History Hx of prostate biopsy Hx of colonoscopy Hx of foot surgery Hx of foot surgery Social History Household Members: Significant Other Housing: Apartment Do you presently have visiting nurse or other home services: No Alcohol intake: never Patient Tobacco Use Status: Former Tobacco user Quit Date: 2011 Smoked in Last 30 Days: No Use of substances other than those prescribed or required for medical reasons: No Have you been hit, kicked, punched, or otherwise hurt by someone within the past year? If so, by whom?: No Do you feel safe in your current relationship?: Yes Is there a partner from a previous relationship who is making you feel unsafe now?: No Are you made to feel afraid or neglected: No Advance Directives: No Advance Directives Information Provided: Yes Advance Directives on File: No Do you have thoughts of harming others: None Do you have a plan to hurt others: No Plan Recently lost weight without trying: No Nutrition Risks: No Nutritional Risk Poor oral hygiene: No Meds Allergies Allergy/AdvReac Type Severity Reaction Status Date / Time lisinopril Allergy COUGH Verified 07/17/23 01:42 Active Medications: Current Medications Dextrose/Sodium Chloride (D5ns) 1,000 mls @ 100 mls/hr IVCONT .Q10H [facility] Last Infusion: 07/17/23 12:40 Dose: 100 mls/hr Piperacillin Sod/Tazobactam (Sod 3.375 gm/ Sodium Chloride) 50 mls @ 100 mls/hr IV RQ6H [facility] Last Infusion: 07/17/23 13:17 Dose: Infused Ketorolac Tromethamine (Ketorolac Tromethamine 30 Mg/Ml Vial) 30 mg IVPUSH Q6H PRN PRN Reason: Pain, Mild (Pain Scale 1-3) Stop: 07/22/23 05:22 Losartan Potassium (Losartan Potassium 50 Mg Tablet) 100 mg PO DAILY [facility]; Protocol Last Admin: 07/17/23 11:15 Dose: 100 mg Ondansetron HCl (Ondansetron Hcl 4 Mg/2 Ml Vial) 4 mg IVPUSH RQ6H [facility] Last Admin: 07/17/23 12:27 Dose: 4 mg Sodium Chloride (0.9 % Sodium Chloride Flush 3 Ml Syringe) 3 ml IVFLUSH QSHIFT [facility] Last Admin: 07/17/23 07:14 Dose: Not Given Home Medications Medication Instructions Recorded Confirmed Last Taken Type metformin 500 mg tablet,extended 1 tab PO BIDWM 09/18/21 07/17/23 Unknown History release 24 hr losartan 100 mg tablet 100 mg PO DAILY 03/30/22 07/17/23 Unknown History blood sugar diagnostic (FreeStyle #10 ea 03/04/23 05/20/23 Unknown History Lite Strips) lancets 28 gauge (FreeStyle #100 ea 03/04/23 05/20/23 Unknown History Lancets) famotidine 20 mg tablet 1 tab PO BEDTIME PRN heartburn 07/17/23 07/17/23 Unknown History Physical Exam Vital Signs: Vital Signs: Last Vital Signs Temp 97 F 07/17/23 13:06 Pulse 63 07/17/23 13:06 Resp 18 07/17/23 13:06 BP 195/95 H 07/17/23 13:06 Pulse Ox 98 07/17/23 13:06 O2 Del Method Room Air 07/17/23 13:06 BMI result Body Mass Index 36.5 Const: General: cooperative, healthy appearing, comfortable and no acute distress Orientation/consciousness: oriented to person, oriented to place, oriented to time and patient oriented x3 HEENT: Other: nonicteric Head: Yes normal to inspection Resp: Effort & Inspection: normal respiratory effort and able to speak in complete sentences Auscultation: clear to auscultation bilaterally Cardio: Rate: regular rate Rhythm: regular rhythm GI: Other: abdomen is soft nondistended tender in the right upper quadrant with some mild guarding no rebound no peritoneal signs active bowel sounds Skin: Other: nonicteric Neuro: General: oriented to person, oriented to place, oriented to time and patient oriented x3 Cognition (Neuro): normal cognition Gait exam (Neuro): Normal gait present Psych: Appearance: grossly normal Mental Status: mental status grossly normal Affect: normal affect Attitude: cooperative Thought process: Normal thought process present Thought content: Normal thought content present Insight: Good insight present (Psych) Results Results Labs: Short CBC 07/17/23 Range/Units 01:57 WBC 12.1 H (4.8-10.8) X10*3/uL Hgb 12.7 L (14.0-18.0) g/dl Hct 38.5 L (42.0-52.0) % Plt Count 131 L (160-400) X10*3/uL BMP 07/17/23 01:57 Sodium 139 Potassium 3.9 Chloride 102 Carbon Dioxide 28 BUN 23 H Creatinine 1.20 Calcium 9.8 Liver Function 07/17/23 Range/Units 01:57 Total Bilirubin 0.2 (0.0-1.0) mg/dL Direct Bilirubin < 0.2 (0.0-0.5) mg/dL AST 15 (5-37) U/L ALT 19 (0-40) U/L Alkaline Phosphatase 74 (39-117) U/L Albumin 4.6 (3.5-5.0) g/dL Urine 07/17/23 Range/Units 02:46 Urine Color Yellow Urine Appearance Clear Urine pH 5.5 (5.0-9.0) Ur Specific [place] 1.025 (1.005-1.025) Urine Protein 100 (2+) H (Neg-Trace) mg/dL Urine Glucose (UA) Negative (Negative) mg/dL Assessment and Plan (1) Acute calculous cholecystitis: Status: Acute Plan 58-year-old male with acute cholecystitis doing little bit better overnight with IV fluid resuscitation NPO and IV antibiotics. Plan to carry out laparoscopic cholecystectomy. Risks and benefits were discussed with the patient including but not limited to bleeding and infection possible open procedure possible bowel injury possible organ injury possible bile duct injury possible leak etc.. Despite this he wishes to proceed. Will plan on carrying this out this afternoon. He is post be having a laser procedure for Urology tomorrow but will postpone this until he recovers from his gallbladder. Quality Stroke Does the patient have a stroke diagnosis?: No VTE Prior VTE?: No VTE Risk Level:: Surgical - low VTE Device Contraindication: N/A - Device Ordered VTE Drug Contraindication: N/A - Med Ordered Procedures Date of Service Date of Service: 07/17/23
--- NOTE | 2023-07-17 18:27 | W.PM.OPN ---
Operative Note Operative Note Date of Service: 07/17/23 Narrative: Preop diagnosis-- acute cholecystitis postop diagnosis-- acute cholecystitis procedure done-- laparoscopic cholecystectomy surgeon-- Ronak anesthesia-- general endotracheal tube anesthesia patient is a 58-year-old male diabetic who presented with several days of abdominal pain but it got worse just before coming into the hospital right upper quadrant radiating to his back. White count was slightly elevated LFTs normal but ultrasound showed thickening of the gallbladder and pericholecystic fluid. Tenderness in right upper quadrant was consistent with acute cholecystitis. As result he was admitted and plan for laparoscopic cholecystectomy Fi-ndings- patient with acute cholecystitis and thickened inflamed gallbladder with a lot of surrounding fatty tissue Procedure-- patient is brought to the operative room under anesthesia guidance was intubated. He had compression stockings place before induction and been on antibiotics for his cholecystitis. His abdomen was prepped and draped in standard surgical fashion. An infraumbilical incision was created after numbing of the area with Marcaine and epinephrine. He was noted to have a small umbilical hernia and so the umbilical stalk was dissected out and transected. The defect in the fascia was noted and this on trocar introduced here. Pneumoperitoneum was established a 50 mmHg pressure. Patient was positioned head up left side down. Three 5 mm ports were then placed under direct visualization using local 1 in the epigastric area and 2 in a right upper quadrant area. The gallbladder was retracted superiorly and laterally. Patient was noted to have a lot of fatty tissue around the gallbladder and oughout the omentum in the abdominal cavity. Patient was positional more head up and dissection was carried out at the base of the gallbladder and the neck trying to take down the fatty tissue to Montiel leaf I am the gallbladder wall. This was carried out and the cystic duct area and a small branch of the cystic artery were seen using the suction lead pressman roto gravure printing blunt dissect ir and laparoscopic peanut we were able to show that these were the only structures going into the gallbladder with another small maybe posterior branch of the cystic artery seen. All the structures went directly into the gallbladder in a decent critical view was had. The cystic duct was clipped 2 times down 1 up and transected cystic artery anterior and posterior branches were also clipped in a similar fashion. The hook cautery was then used to remove the gallbladder from the liver base. It was then removed through the infraumbilical port site. Pneumoperitoneum was then re-established. The cystic duct stump and artery looked fine clipped in stable. The liver bed was fine without any significant bleeding. Little suction irrigation was carried out and everything else looked fine. The ports were then removed under direct visualization. The umbilical fascial defect was then closed with the pursestring suture in the skin together quite nicely. The umbilical stalk was imbricated with 0 Vicryl stitch. 4-0 Monocryl was then used to approximate the skin edges at all port sites. The right lateral port site had some bleeding. But before the ports were removed no bleeding was noted intraperitoneal E. Cautery was applied here and then Vicryl stitch was used to get hemostasis. Mastisol and Steri-Strips were used and Dry dressings placed with Tegaderm. At the end of the case all sponge instrument needle counts were correct. Estimated blood loss was about 5 cc specimen sent was the gallbladder. The patient was extubated returned stable to recovery
[2023-07-18] VITALS: BP 138/82; PULSE 74; RESP 16; TEMP 36.7; O2SAT 96
[2023-07-18] MEDS: ondansetron HCL 4 MG/2 ML VIAL IVPUSH ×2 (00:11→06:02)
[2023-07-18] MEDS: Dextrose 5 % and 0.9 % NaCl 1,000 ML 100 ML IVCONT (00:12)
[2023-07-18] MEDS: Piperacillin Sodium/Tazobactam 3.375 GM in 0.9 % Sodium Chloride 50 ML IV ×2 (01:59→07:45)
[2023-07-18 04:00] VITALS: BP 142/76; PULSE 75; RESP 16; TEMP 36.3; O2SAT 95
[2023-07-18 07:35] VITALS: BP 161/78; PULSE 68; RESP 16; TEMP 36.4; O2SAT 94
[2023-07-18] MEDS: Losartan Potassium 50 MG TABLET 100 MG PO (07:44)
[2023-07-18] MEDS: 0.9 % Sodium Chloride Flush 3 ML SYRINGE IVFLUSH (07:45)
[2023-07-18 07:57] LABS: Glucose, Whole Blood 98 mg/dL (60-115)
--- NOTE | 2023-07-18 07:58 | PM.PNGS ---
Subjective Subjective Date of Service: 07/18/23 Interval history: feels well denies signfiicant pain no events reported postop Physical Exam Vital Signs: Vital Signs: Last Vital Signs Temp 97.6 F 07/18/23 07:35 Pulse 68 07/18/23 07:35 Resp 16 07/18/23 07:35 BP 161/78 H 07/18/23 07:35 Pulse Ox 94 07/18/23 07:35 O2 Del Method Room Air 07/18/23 07:35 O2 Flow Rate 2 07/17/23 19:00 FiO2 48 07/17/23 19:00 BMI result Body Mass Index 36.5 Const: Other: looks well General: comfortable and no acute distress Resp: Effort & Inspection: normal respiratory effort Cardio: Rate: regular rate GI: Other: dressings dry Palpation (GI): Soft to palpation, not firm and no guarding Objective Data Active Medications Fentanyl (Fentanyl Citrate/Pf 100 Mcg/2 Ml Vial) 50 mcg IVPUSH Q5M PRN; Protocol PRN Reason: Pain, Severe (Pain Scale 7-10) Hydromorphone HCl (Hydromorphone Hcl 0.5 Mg/0.5 Ml Syringe) 0.5 mg IVPUSH Q5M PRN; Protocol PRN Reason: Pain, Severe (Pain Scale 7-10) Dextrose/Sodium Chloride (D5ns) 1,000 mls @ 100 mls/hr IVCONT .Q10H [facility] Last Admin: 07/18/23 00:12 Dose: 100 mls/hr Documented By: DARRICK Promethazine HCl 12.5 mg/ (Sodium Chloride) 50.5 mls @ 202 mls/hr IV ONCE PRN PRN Reason: Nausea and Vomiting Piperacillin Sod/Tazobactam (Sod 3.375 gm/ Sodium Chloride) 50 mls @ 100 mls/hr IV Q6H [facility] Last Admin: 07/18/23 07:45 Dose: 100 mls/hr Documented By: ZANDER Ketorolac Tromethamine (Ketorolac Tromethamine 30 Mg/Ml Vial) 30 mg IVPUSH Q6H PRN PRN Reason: Pain, Mild (Pain Scale 1-3) Stop: 07/22/23 05:22 Losartan Potassium (Losartan Potassium 50 Mg Tablet) 100 mg PO DAILY [facility]; Protocol Last Admin: 07/18/23 07:44 Dose: 100 mg Documented By: ZANDER Ondansetron HCl (Ondansetron Hcl 4 Mg/2 Ml Vial) 4 mg IVPUSH RQ6H [facility] Last Admin: 07/18/23 06:02 Dose: 4 mg Documented By: DARRICK Oxycodone HCl (Oxycodone Hcl Immed Release 5 Mg Tablet) 5 mg PO Q4H PRN PRN Reason: Pain, Moderate(Pain Scale 4-6) Oxycodone HCl (Oxycodone Hcl Immed Release 5 Mg Tablet) 10 mg PO Q4H PRN PRN Reason: Pain, Severe (Pain Scale 7-10) Sodium Chloride (0.9 % Sodium Chloride Flush 3 Ml Syringe) [facility] Admin: 07/18/23 07:45 Dose: 3 ml Documented By: ZANDER Labs 07/17/23 01:57 07/17/23 01:57 Labs: Laboratory Results - last 24 hr 07/17/23 07/18/23 10:43 07:54 POC Glucose 90 98 Microbiology Microbiology Results: Microbiology 07/17/23 05:00 Blood Culture - Preliminary Blood - Venous No growth after 24 hours. 07/17/23 04:52 Blood Culture - Preliminary Blood - Venous No growth after 24 hours. Procedures Date of Service Date of Service: 07/18/23 Progress Note: A&P Assessment and plan (1) Acute calculous cholecystitis: Status: Acute Assessment and Plan: S/P lap sherrell with Dr Simons doing very well abd soft and benign ok to dc home once tolerating diet ffup instructions reinforced - he says he understands Time Spent With Patient Time: Total time managing care of this patient today ____ minutes. Quality Stroke Does the patient have a stroke diagnosis?: No VTE Prior VTE?: No VTE Risk Level:: Surgical - low VTE Device Contraindication: N/A - Device Ordered VTE Drug Contraindication: N/A - Med Ordered
--- NOTE | 2023-07-18 10:09 | PM.EVENT ---
Event Note Date of Service: 07/18/23 Event Note: Tolerated breakfast well Says he feels well States he is ready to be discharged Looks comfortable Abdomen soft Blood sugars okay With discharge home Follow-up instructions reinforced Time Spent With Patient Time: Total time managing care of this patient today ____ minutes.
--- NOTE | 2023-07-18 10:16 | MHC.CM.PN ---
pt dcd home no skilled servceis
--- NOTE | 2023-07-18 11:07 | PC.NURSE ---
Spoke with MD Johnston this AM about pts DM2 diagnosis, no POC blood sugars ordered, POC taken at 0754, result: 98. Pt states he does not take insulin at home but metformin was listed in his medication Hx. Per MD pt to be discharged this AM. Pt discharged home medications to be resumed. Pt understands D/C instructions.
--- NOTE | 2023-07-18 12:58 | PM.DS ---
DS: Providers Provider Date of Service: 07/18/23 <Susan Denis PA-C - Last Filed: 07/18/23 13:03> Date of admission: 07/17/23 05:24 <Susan Denis PA-C - Last Filed: 07/18/23 13:03> Primary care physician: Nola Yadav NP <Susan Denis PA-C - Last Filed: 07/18/23 13:03> Attending physician on admission: Shobha Simons <Susan Denis PA-C - Last Filed: 07/18/23 13:03> Attending physician on discharge: Mauri Johnston <Susan Denis PA-C - Last Filed: 07/18/23 13:03> DS: Diagnosis Discharge Diagnosis (1) Acute calculous cholecystitis: Status: Acute <Susan Dneis PA-C - Last Filed: 07/18/23 13:03> DS: Summary Hospital Course Hospital Course: HPI AT ADMISSION: Jered Do is a 58 year old male Who has been having abdominal pain over the last couple of weeks but last night it got worse. As result he came into the emergency room. He denied any nausea vomiting no fevers or chills. Here in the ER blood work was done and LFTs were normal but ultrasound showed thickened gallbladder with pericholecystic fluid and tenderness in the right upper quadrant area. Otherwise the patient denies any significant other issues. He is supposed to have some urology procedure tomorrow he says as he has had some issues with his prostate and sees Dr. Mistry for this HOSPITAL COURSE: He was admitted to the surgical serice for further treatment of the acute cholecystitis. It was recommended to proceed with laparoscopic cholecystectomy and he agreed. He was added onto the OR schedule for that day. On 07/17/23, a laparoscopic cholecystectomy was performed by Dr. Simons without complication. The patient tolerated the procedure well. He had an uncomplicated recovery course. On POD #1, he felt well. His pain was well controlled on PO analgesics. His abdomen was benign with clean dressings and appropriate post op tenderness. He was reassessed and was tolerating a solid diet and felt ready for discharge. He was discharged to home on 07/18/23 in stable condition. He is to follow up in the office in 2 weeks. <Susan Denis PA-C - Last Filed: 07/18/23 13:03> Status at Discharge Functional status at discharge: independent ambulation <Susan Denis PA-C - Last Filed: 07/18/23 13:03> Overall status at discharge: patient is progressing back to baseline <Susan Denis PA-C - Last Filed: 07/18/23 13:03> Time Attestation Discharge coordination time: Less than 30 minutes <Susan Denis PA-C - Last Filed: 07/18/23 13:03> Quality: Safe Use of Opioids Does Pt have an Active Cancer Diagnosis on the Problem List?: No <Susan Denis PA-C - Last Filed: 07/18/23 13:03> Quality: Stroke Does the patient have a stroke diagnosis?: No <Mauri Johnston MD - Last Filed: 07/19/23 15:19> Physical Exam Vital Signs: Vital Signs: Last Vital Signs Temp 97.6 F 07/18/23 07:35 Pulse 68 07/18/23 07:35 Resp 16 07/18/23 07:35 BP 161/78 H 07/18/23 07:35 Pulse Ox 94 07/18/23 07:35 O2 Del Method Room Air 07/18/23 07:35 O2 Flow Rate 2 07/17/23 19:00 FiO2 48 07/17/23 19:00 BMI result Body Mass Index 36.5 <Susan Denis PA-C - Last Filed: 07/18/23 13:03> DS: Data Data Completed and Pending Pending studies at discharge: Pending at discharge 07/17/23 17:57 Surgical [PTH] Routine <Susan Denis PA-C - Last Filed: 07/18/23 13:03> Labs on day of discharge: Laboratory Results - last 24 hr 07/18/23 07:54 POC Glucose 98 Preliminary micro results at discharge 07/17/23 05:00 Blood Culture - Preliminary Blood - Venous No growth after 24 hours. 07/17/23 04:52 Blood Culture - Preliminary Blood - Venous No growth after 24 hours. <Susan Denis PA-C - Last Filed: 07/18/23 13:03> Discharge Plan Discharge Anticipated Discharge Date/Time: 07/18/23 08:00 <Susan Denis PA-C - Last Filed: 07/18/23 13:03> Patient Disposition: Home, Self-Care <Susan Denis PA-C - Last Filed: 07/18/23 13:03> Discharge Diagnosis: acute cholecystitis <Susan Denis PA-C - Last Filed: 07/18/23 13:03> acute cholecystitis <Mauri Johnston MD - Last Filed: 07/19/23 15:19> Referrals: Mauri Johnston MD [Physician] - 2 Weeks Physician,Nabeel J [Physician] - 1 Week <Susan Denis PA-C - Last Filed: 07/18/23 13:03> Discharge Medications: New oxycodone-acetaminophen [Percocet] 5-325 mg tablet 1 tab PO Q4-6H PRN (Reason: pain) Qty: 20 0RF Rx Instructions: Partial Fill upon patient request. ibuprofen 600 mg tablet 600 mg PO Q6H PRN (Reason: pain) Qty: 30 0RF Continued metformin 500 mg tablet extended release 24 hr 1 tab PO BIDWM famotidine 20 mg tablet 1 tab PO BEDTIME PRN (Reason: heartburn ) losartan 100 mg tablet 100 mg PO DAILY (DME) lancets [FreeStyle Lancets] 28 gauge misc See Rx Instructions .ROUTE BID Qty: 100 Rx Instructions: As directed (DME) FreeStyle Lite Strips Strip See Rx Instructions .ROUTE BID-TID Qty: 10 Rx Instructions: As directed finasteride 5 mg tablet 5 mg PO DAILY 90 Days Qty: 90 1RF terazosin 5 mg capsule 5 mg PO BEDTIME 90 Days Qty: 90 1RF tadalafil 20 mg tablet 20 mg PO DAILY PRN (Reason: sexual activity) 30 Days Qty: 30 0RF <Susan Denis PA-C - Last Filed: 07/18/23 13:03> Discharge Orders: Discharge Order (Routine); Ordered 07/18/23 Ordered By: Susan Denis <YIN Lombardi Last Filed: 07/18/23 13:03> Diet: Low fat, low cholesterol <Susan Denis PA-C - Last Filed: 07/18/23 13:03> Low fat, low cholesterol <Mauri Johnston MD - Last Filed: 07/19/23 15:19> Activity on Discharge: No heavy lifting <Susan Denis PA-C - Last Filed: 07/18/23 13:03> No heavy lifting <Mauri Johnston MD - Last Filed: 07/19/23 15:19> Stand Alone Forms: Patient Portal Discharge page <Susan Denis PA-C - Last Filed: 07/18/23 13:03> Activity Restrictions/Additional Instructions: If the incision area is tender, you may apply an ice pack for short intervals (No more than 20 minutes on, followed by at least 20 minutes off). Do not apply heat. Do not use creams, lotions, or topical antibiotics. These can cause infection or allergic reaction. Ok to shower 24 hours after your surgery. Ok to remove dressings 48h. You have steri strips (small white cloth strips) covering your incision- these will fall off ~1 week. Follow up in office with Dr. Johnston in 2 weeks. ([phone]) No heavy lifting (>10-20lbs) or strenuous activity! Call Your Doctor If: -Your temperature exceeds 101.5? F -You experience excessive pain or swelling -You have an unexpected reaction to medication -You have excessive bleeding -You experience continued vomiting/nausea -Your incision begins to separate -Your incision shows signs of infection such as increased redness, swelling, excessive pain, drainage (light blood or clear fluid is normal) or heat <Susan Denis PA-C - Last Filed: 07/18/23 13:03> Care Plan Goals: pain mgt return to baseline <Susan Denis PA-C - Last Filed: 07/18/23 13:03> Health Concerns: DM <Ssuan Denis PA-C - Last Filed: 07/18/23 13:03> Plan of Treatment: pain mgt ffup in office <Susan Denis PA-C - Last Filed: 07/18/23 13:03> Assessment: doing very well <Susan Denis PA-C - Last Filed: 07/18/23 13:03> Discharge Date/Time: 07/18/23 11:12 <Susan Denis PA-C - Last Filed: 07/18/23 13:03>
--- NOTE | 2023-07-18 15:23 | HO.POSTANES ---
Post Anesthesia Evaluation Post Anesthesia Evaluation Date of Service: 07/18/23 Vital Signs: Vital Signs Temp Pulse Resp BP Pulse Ox O2 Del Method 07/18/23 07:35 97.6 F 68 16 161/78 H 94 Room Air 07/18/23 04:00 97.4 F 75 16 142/76 H 95 Room Air Anesthesia: General Endotracheal-GETA Mental Status: Awake Pain Control: Satisfactory Nausea/Vomiting: None Hydration: Adequate Anesthesia-Related Issues: No Anes. Related Issues
== END 2023-07-18 11:12 | disposition home or self-care (01) | DRG 263 ==
LOC: HO.ED 05:25 → HO.EDOVER 05:31 → HO.S3 12:06
PROVIDERS: Admitting Provider Surgery; Emergency Provider Emergency Medicine; PCP Nurse Practitioner Primary Care; Visit Provider Surgery
PROC: 0FT44ZZ Resection of Gallbladder, Percutaneous Endoscopic Approach (ICD-10-PCS; CPT 47562; principal; 2023-07-17 15:00)
DX: K81.0 Acute cholecystitis (principal); E11.9 Type 2 diabetes mellitus without complications; K21.9 Gastro-esophageal reflux disease without esophagitis; Z79.84 Long term (current) use of oral hypoglycemic drugs; Z79.899 Other long term (current) drug therapy
CPT/HCPCS: 36415; 76705; 80048; 80076; 81001; 82947; 83690; 85007; 85025; 85027; 87040; 88304; 99285; J0665; J1100; J1885; J2270; J2405; J2543; J2704; J3010

== ENCOUNTER → 2023-07-17 05:24 | Outpatient (BNV) | payer MEDICAID, SELFPAY | PROVIDERS: Admitting Provider Surgery; Emergency Provider Emergency Medicine; Visit Provider Surgery | DX: K80.00 Calculus of gallbladder with acute cholecystitis without obstruction (principal) | CPT/HCPCS: 47562; 99024; 99222; 99499 ==

== ENCOUNTER 2023-08-08 14:33 | Outpatient (AMB) | payer MEDICAID, SELFPAY ==
--- NOTE | 2023-08-08 14:36 | MHC.OFFVIS ---
Intake Vital Signs 08/08/23 14:42 Weight 244 lb Intake Visit Reasons: s/p lap sherrell Intake Note: This patient presents for a post-op follow-up assessment status post laparoscopic cholecystectomy. * pt* Pt c/o; reports RUQ incision was infected and he will take his last abx pill today, reports redness. 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 He underwent laparoscopic cholecystectomy for acute cholecystitis with Dr. Simons last 07/17/2023. He tolerated procedure well He says he has been doing well. He denies any GI complaints. He does state that he was started on oral antibiotics last week by his primary care physician because of an infection on 1 of the incisions. [facility] Medical History Tubular adenoma Arthritis GERD (gastroesophageal reflux disease) High cholesterol Diabetes Hypertension Surgical History (Updated 08/08/23 @ 14:49 by Mauri Johnston MD) Status post laparoscopic cholecystectomy Hx of prostate biopsy Hx of colonoscopy Hx of foot surgery Hx of foot surgery Family History Father Lung cancer Social History Household Members: Significant Other Housing: Apartment Do you presently have visiting nurse or other home services: No Alcohol intake: never Patient Tobacco Use Status: Former Tobacco user Quit Date: 2011 Review of Systems Const Denies chills and Denies fever(s) Card Denies chest pain, Denies dyspnea and Denies dyspnea on exertion Resp Denies cough, Denies dyspnea and Denies dyspnea on exertion GI Denies hematochezia and Denies change in bowel habits Denies hematuria and Denies difficulty urinating Musc Denies back pain and Denies limited range of motion Neuro Denies focal weakness and Denies convulsions Psych Denies depression and Denies mood swings Physical Exam Const General: comfortable and no acute distress Eyes Sclerae: sclerae normal Resp Effort & Inspection: normal respiratory effort GI Other: All incisions healing well although there is some skin separation on 1 of the incisions on the right upper quadrant, with no pus, no cellulitis Palpation (GI): Soft to palpation, not firm and no guarding Assessment & Plan Assessment & Plan (1) Status post laparoscopic cholecystectomy: Code(s): Z90.49 - Acquired absence of other specified parts of digestive tract Plan: He had undergone laparoscopic cholecystectomy with Dr. Simons. He is doing well postoperatively. He had been started on antibiotics last week by his primary care physician for an infection on 1 of the port sites. I advised him to avoid lifting of anything more than 20 lb for at least 2 more weeks. He can otherwise follow up on a p.r.n. basis Coding Level of Care Code Global (57444) Diagnoses Status post laparoscopic cholecystectomy Z90.49
== END 2023-08-08 14:45 | disposition home or self-care (01) ==
PROVIDERS: PCP Nurse Practitioner Primary Care; Visit Provider Surgery
DX: Z90.49 Acquired absence of other specified parts of digestive tract (principal)
CPT/HCPCS: 99024

== ENCOUNTER → 2023-08-08 14:33 | Outpatient (BNVA) | payer MEDICAID, SELFPAY | PROVIDERS: PCP Nurse Practitioner Primary Care; Visit Provider Surgery | DX: Z90.49 Acquired absence of other specified parts of digestive tract (principal) | CPT/HCPCS: 99212 ==

== ENCOUNTER 2023-08-29 06:55 | Day surgery (SDC) | payer MEDICAID, SELFPAY ==
[2023-07-12 09:17] VITALS: BMI 16.6
--- NOTE | 2023-07-12 14:23 | HO.ANESPROP2 ---
HPI - Anesthesia Eval Consult details Narrative: 58yo M Laser Ablation Prostate w/Green Light PMFSH Active Problems Active Problems: All Active Problems (Updated 05/20/23 @ 16:00 by Mati Mistry MD) Erectile dysfunction associated with type 2 diabetes mellitus (Acute) Bladder outlet obstruction (Acute) Erectile dysfunction (Acute) Elevated PSA (Acute) Urinary hesitancy (Acute) Incomplete emptying of bladder due to benign prostatic hyperplasia (Acute) Weak urinary stream (Acute) Tubular adenoma (Acute) Past Medical History Medical History (Updated 05/20/23 @ 16:00 by Mati Mistry MD) Tubular adenoma Arthritis GERD (gastroesophageal reflux disease) High cholesterol Diabetes Hypertension Family History Family History Father Lung cancer Surgical History Surgical History (Updated 07/12/23 @ 09:11 by Shaneka Faith RN) Hx of prostate biopsy Hx of colonoscopy Hx of foot surgery Hx of foot surgery History of Problems with Anesthesia: No Social History Household Members: Spouse Alcohol intake: never Patient Tobacco Use Status: Former Tobacco user Quit Date: 2011 Meds Allergies Allergy/AdvReac Type Severity Reaction Status Date / Time lisinopril Allergy COUGH Verified 03/04/23 14:43 Home Medications Medication Instructions Recorded Confirmed Last Taken Type hydrochlorothiazide 25 mg tablet 1 tab PO DAILY 09/18/21 07/12/23 Unknown History metformin 500 mg tablet,extended 1 tab PO BID 09/18/21 07/12/23 Unknown History release 24 hr lidocaine 5 % topical patch 1 patch topical DAILY 10/06/21 07/12/23 Unknown History losartan 100 mg tablet 100 mg PO DAILY 03/30/22 07/12/23 Unknown History aspirin 325 mg tablet,delayed 325 mg PO DAILY 08/06/22 07/12/23 Unknown History release cholecalciferol (vitamin D3) 125 125 mcg PO DAILY 08/06/22 07/12/23 Unknown History mcg (5,000 unit) capsule blood sugar diagnostic (FreeStyle #10 ea 03/04/23 05/20/23 Unknown History Lite Strips) lancets 28 gauge (FreeStyle #100 ea 03/04/23 05/20/23 Unknown History Lancets) Exam Height,Weight and Vital Signs: Height 5 ft 8 in Weight 49.379 kg Assessment and Plan Assessment Anesthesia Assessment: Chart Reviewed Final Anesthetic Review History of Problems with Anesthesia: No
--- NOTE | 2023-08-26 10:11 | HO.ANESPROP2 ---
Documented by User: Arianna Oliver NP 08/26/23 10:12 HPI - Anesthesia Eval Consult details Narrative: 58yo M for Laser Ablation Prostate w/Green Light PMFSH Active Problems Active Problems: All Active Problems (Updated 07/26/23 @ 00:03 by Background Denise) Status post laparoscopic cholecystectomy (Acute) Erectile dysfunction associated with type 2 diabetes mellitus (Acute) Bladder outlet obstruction (Acute) Erectile dysfunction (Acute) Elevated PSA (Acute) Urinary hesitancy (Acute) Incomplete emptying of bladder due to benign prostatic hyperplasia (Acute) Weak urinary stream (Acute) Tubular adenoma (Acute) Past Medical History Medical History Tubular adenoma Arthritis GERD (gastroesophageal reflux disease) High cholesterol Diabetes Hypertension Family History Family History Father Lung cancer Family history of problems with anesthesia: No Surgical History Surgical History Status post laparoscopic cholecystectomy Hx of prostate biopsy Hx of colonoscopy Hx of foot surgery Hx of foot surgery History of Problems with Anesthesia: No Social History Social History Household Members: Significant Other Housing: Apartment Do you presently have visiting nurse or other home services: No Alcohol intake: never Patient Tobacco Use Status: Former Tobacco user Quit Date: 2011 Use of substances other than those prescribed or required for medical reasons: No Are you DNR?: No Advance Directives: No Advance Directives Information Provided: Yes Meds Allergies Allergy/AdvReac Type Severity Reaction Status Date / Time lisinopril Allergy COUGH Verified 08/08/23 14:44 Home Medications Medication Instructions Recorded Confirmed Last Taken Type metformin 500 mg tablet,extended 1 tab PO BIDWM 09/18/21 07/17/23 Unknown History release 24 hr losartan 100 mg tablet 100 mg PO DAILY 03/30/22 07/17/23 Unknown History blood sugar diagnostic (FreeStyle #10 ea 03/04/23 05/20/23 Unknown History Lite Strips) lancets 28 gauge (FreeStyle #100 ea 03/04/23 05/20/23 Unknown History Lancets) famotidine 20 mg tablet 1 tab PO BEDTIME PRN heartburn 07/17/23 07/17/23 Unknown History Exam Height,Weight and Vital Signs: Height 5 ft 8 in Weight 49.379 kg Pertinent Lab Results Pertinent Lab Results: Laboratory Tests 07/17/23 01:57 WBC 12.1 H Hgb 12.7 L Hct 38.5 L Plt Count 131 L Sodium 139 Potassium 3.9 Chloride 102 Carbon Dioxide 28 BUN 23 H Creatinine 1.20 Assessment and Plan Assessment Anesthesia Assessment: Chart Reviewed Final Anesthetic Review Family History of Problems with Anesthesia: No History of Problems with Anesthesia: No Documented by User: Rosita Vaughan MD 08/29/23 08:27 [facility] Past Medical History Medical History Tubular adenoma Arthritis GERD (gastroesophageal reflux disease) High cholesterol Diabetes Hypertension Family History Family History Father Lung cancer Surgical History Surgical History Status post laparoscopic cholecystectomy Hx of prostate biopsy Hx of colonoscopy Hx of foot surgery Hx of foot surgery Social History Social History Household Members: Significant Other Housing: Apartment Do you presently have visiting nurse or other home services: No Alcohol intake: never Patient Tobacco Use Status: Former Tobacco user Quit Date: 2011 Use of substances other than those prescribed or required for medical reasons: No Are you DNR?: No Advance Directives: No Advance Directives Information Provided: Yes Meds Allergies Allergy/AdvReac Type Severity Reaction Status Date / Time lisinopril Allergy COUGH Verified 08/08/23 14:44 Home Medications Medication Instructions Recorded Confirmed Last Taken Type metformin 500 mg tablet,extended 1 tab PO BIDWM 09/18/21 07/17/23 Unknown History release 24 hr losartan 100 mg tablet 100 mg PO DAILY 03/30/22 07/17/23 Unknown History blood sugar diagnostic (FreeStyle #10 ea 03/04/23 05/20/23 Unknown History Lite Strips) lancets 28 gauge (FreeStyle #100 ea 03/04/23 05/20/23 Unknown History Lancets) famotidine 20 mg tablet 1 tab PO BEDTIME PRN heartburn 07/17/23 07/17/23 Unknown History Exam Airway Mallampati Class: II TM Dist: >3cm Neck ROM: Full Partial: Upper and Lower Heart: rrr Lungs: cta Assessment and Plan Assessment Anesthesia Assessment: Anesthesia Plan Discussed Final Anesthetic Review NPO: Yes ASA Class: III Final Preanesthetic Review: No Changes in Pt Med Stat, Meds/Allgs Chart Reviewed, Consent Obtained/Reviewed and Anes Risks/Benef Reviewed Patient Risk: Intermediate Procedure Risk: Low Anesthetic Plan Anesthetic Plan: GA Disposition: Standard PACU
[2023-08-29 07:29] VITALS: BMI 37.2
[2023-08-29 07:47] VITALS: BP 159/84; PULSE 68; RESP 18; TEMP 36.5; O2SAT 97
--- NOTE | 2023-08-29 09:04 | MHC.SHP ---
Pre-Procedural Eval Section A Date of Service: 08/29/23 The patient is an INPATIENT: No Changes since office visit: No Cold of Flu in the past 2 weeks, No New Medical Problems, No Changes in Medication and No Patient answered all questions The History & Physical has been completed within 30 days and I have reviewed it.: No Section B Chief Complaint: Bladder-neck obstruction Details of Present Illness: Laser enucleation of the prostate Relevant Family History (Specify if Yes): No Relevant Social History: None Present Medications: see Short Stay Collaborative assessment Medical History: No relevant PMH History of Previous Operations: No relevant previous surgery Allergies: Allergies Allergy/AdvReac Type Severity Reaction Status Date / Time lisinopril Allergy COUGH Verified 08/08/23 14:44 Review of Systems Sugical H&P ROS: Negative: Constitution, Cardiovascular, Respiratory, Neurological, Psychiatric, Hem-Onc, Allergic/Immunologic, Gastrointestinal, Genitourinary, Musculoskeletal, Integumentary, Endocrine and Eyes/Ears/Nose/Throat Exam Surgical H&P Exam: Normal: HEENT, Normal: Heart, Normal: Lungs, Normal: Extremities, Normal: Abdomen, Normal: Skin and Normal: Neurological Plan Diagnosis/Plan: Unchanged I have reviewed the history and physical and performed a pertinent physical examination on my patient. No changes have occurred unless specified. Time Spent With Patient Time: Total time managing care of this patient today ____ minutes.
[2023-08-29 10:08] VITALS: BP 142/91; PULSE 83; RESP 16; TEMP 36.1; O2SAT 94
[2023-08-29 10:14] VITALS: BP 149/93; PULSE 83; RESP 16; O2SAT 94
[2023-08-29 10:19] VITALS: BP 171/96; PULSE 77; RESP 16; O2SAT 95
--- NOTE | 2023-08-29 10:20 | W.PM.OPN ---
Operative Note Operative Note Date of Service: 08/29/23 Narrative: PreOperative Diagnosis: Bladder outlet obstruction Post Operative Diagnosis: Bladder outlet obstruction Procedure: GreenLight Laser Enucleation of the prostate CPT 19882 Surgeon: Dr Mati Mistry Anesthesia: General Indications for procedure: short prostate with trilobar impingement History of bladder outlet obstruction. Treated with alpha-ochoa and other medications. Still with symptoms. On cystoscopy in office has trilobar prostate. Recommendation for prostate procedure with laser enucleation of prostate. Risks and benefits have been discussed. Focus was placed on development of retrograde ejaculation which is a normal part of this procedure. Procedure: After informed consent was verified the patient was brought to the operating room and placed in a supine position. Anesthesia was administered per protocol. Patient was placed in modified dorsal lithotomy position and prepped and draped in a sterile fashion. Safety pause time-out was confirmed. Antibiotics have been given. A Twenty-four Bengali laser cystoscope was inserted per urethra. No abnormalities were found of the anterior and bulbar urethra. The bladder was examined and both ureteric orifices were seen in their normal positions away from the area of interest. Using a GreenLight laser with settings of 80 w incisions were made at the 5 and 7 o'clock position. The incisions were taken down from the bladder neck down to the level of the veru. These were gradually deepened in order to define the lateral aspects of the median lobe area. Once clearly defined they will also extended in the lateral directions in order to create a deep groove. The median lobe was then ablated and enucleated tissue released into the bladder with the laser power increased to 120 W. Once the median lobe area had been cleared attention was directed to the lateral lobes. Starting with the patient's left lateral lobe. First the 05:00 o'clock groove was further developed. This was moved in the lateral direction to undermine the tissue on the lateral side running from the bladder neck to the prostate apex. Focus was then placed on the laser at the 1 o'clock position to developing a secondary groove down to the level of bladder fibers. The creation of a second deep groove defined a segment of intervening tissue similar to a slice of orange. At the apex of the prostate the 2 grooves were linked the us releasing the intervening tissue. This tissue was then removed with a combination of enucleation and ablation working from the apex toward the bladder neck. A similar procedure was repeated on the patient's right-hand side. The only differences being the position of the lateral groove at he 7 'oclock positioin and the secondary groove at the 11 o'clock position, Otherwise the procedure was developed in a mirror fashion. After the majority of tissue had been debulked remnant tissue was ablated with the side fire laser and the curve of the prostate followed up each side wall clearly defining the anterior remnant strip that remained between the 11 and 1 o'clock positions. When this was had been completed debris and pieces of prostate were removed from the bladder with irrigation. Both ureteric orifices were reviewed again in shown to be patent in away from any areas of energy damage. The apical area was reviewed in any stray ooze was controlled. A 22 Bengali 30 cc balloon Burt catheter was placed over a stylet into the bladder. Clear efflux was obtained upopn irrigation with a Kati piston syringe. 30 cc was placed in the balloon and gentle traction was placed. A snap was used to hold tension on the catheter to control bleeding during patient moved and transported. A drainage bag was placed. Once transportation is complete to the PACU the snap will be removed. The patient tolerated the procedure well, he was extubated in the operating and transferred in a stable condition to the recovery area. Total Power 134 kW Lasing time 19:19 Pathology: Prostate tissue Drains: Burt catheter
[2023-08-29 10:24] VITALS: BP 169/85; PULSE 75; RESP 18; O2SAT 95
[2023-08-29 10:39] VITALS: BP 167/95; PULSE 68; RESP 18; TEMP 36.3; O2SAT 95
== END 2023-08-29 12:34 | disposition home or self-care (01) ==
PROVIDERS: Visit Provider Urology
PROC: (CPT 52648; principal; 2023-08-29 09:10)
DX: N32.0 Bladder-neck obstruction (principal); N40.1 Benign prostatic hyperplasia with lower urinary tract symptoms; R39.12 Poor urinary stream; E11.69 Type 2 diabetes mellitus with other specified complication; N52.1 Erectile dysfunction due to diseases classified elsewhere; K21.9 Gastro-esophageal reflux disease without esophagitis; E78.00 Pure hypercholesterolemia, unspecified; I10 Essential (primary) hypertension; Z79.899 Other long term (current) drug therapy; Z79.82 Long term (current) use of aspirin; Z79.84 Long term (current) use of oral hypoglycemic drugs; Z88.8 Allergy status to other drugs, medicaments and biological substances; Z87.891 Personal history of nicotine dependence
CPT/HCPCS: 52649; 82947; 88305; J1100; J1885; J1956; J2405; J2704; J3010

== ENCOUNTER → 2023-08-29 06:55 | Outpatient (BNV) | payer MEDICAID, SELFPAY | PROVIDERS: Visit Provider Urology | DX: N32.0 Bladder-neck obstruction (principal) | CPT/HCPCS: 52649 ==

== ENCOUNTER → 2023-09-01 08:34 | Outpatient (BNVA) | payer MEDICAID, SELFPAY | PROVIDERS: PCP Nurse Practitioner Primary Care; Visit Provider Urology ==

== ENCOUNTER 2023-09-28 14:15 | Outpatient (REF) | payer MEDICAID, SELFPAY | END 2023-09-28 14:16 | disposition home or self-care (01) | LOC: HO.LAB 14:15 | PROVIDERS: PCP Nurse Practitioner Primary Care; Visit Provider Urology | DX: N39.0 Urinary tract infection, site not specified (principal); E11.69 Type 2 diabetes mellitus with other specified complication; N32.0 Bladder-neck obstruction; R97.20 Elevated prostate specific antigen [PSA]; N52.1 Erectile dysfunction due to diseases classified elsewhere | CPT/HCPCS: 51798; 81003; 87086; 99212 ==

== ENCOUNTER 2023-09-28 14:15 | Outpatient (AMB) | payer MEDICAID, SELFPAY ==
--- NOTE | 2023-09-28 14:42 | MHC.OFFVIS ---
Intake Intake Visit Reasons: S/P Greenlight Intake Note: Patient presents today for a follow-up after Greenlight surgery Meds- Finasteride, Tadalafil, Terazosin Allergies to Antibiotic- No Known Allergies Blood Thinner- None Post Void Residual: 37 Patient Symptoms: Patient stated he feels burning when he urinates, pain in the right lower back, and also stated a piece of flesh came out of the urethra a few weeks ago. Natural Resources Specialist Required: No Accompanied by: Self / Same As Patient Allergies lisinopril Allergy (Verified 09/28/23 14:52) COUGH HPI HPI Comments History of Present Illness Details Jered is a pleasant male. He is a patient of Dr. Yadav. He seen for the following urologic conditions - lower urinary tract symptoms - erectile dysfunction PVR 40 cc Post GreenLight laser visit Has white cells in urine Will treat with low-dose Bactrim for 1 month Would like refill on erectile medications Did respond partially to tadalafil high dose. Start 5 mg daily with on demand Erectile dysfunction in setting of diabetes Progressive Concurrent diagnoses include hypertension, diabetes Tadalafil 20 mg on demand Lower urinary tract symptoms Initial symptoms of urinary hesitancy and weakness of stream Ongoing for the past 2-3 years in progressive Was associated with episode of hematuria in March 2021 Cystoscopy 02/10 large bilobar prostate Therapy terazosin and finasteride PSA 04/11 7.8, 02/10 6.1, 03/13 7.3 18% GreenLight laser 09/14 - chronic inflammation on tissue diagnosis Prostate biopsy 08/12 NAD 110gm on US PFSH Medical History Tubular adenoma Arthritis GERD (gastroesophageal reflux disease) High cholesterol Diabetes Hypertension Surgical History Status post laparoscopic cholecystectomy Hx of prostate biopsy Hx of colonoscopy Hx of foot surgery Hx of foot surgery Family History Father Lung cancer Social History Household Members: Significant Other Housing: Apartment Do you presently have visiting nurse or other home services: No Alcohol intake: never Patient Tobacco Use Status: Former Tobacco user Quit Date: 2011 Review of Systems Const Denies chills and Denies fever(s) Card Reports no additional complaints and Denies syncope Resp Denies cough GI Denies abdominal pain and Denies heartburn Reports as per HPI and Denies change in libido Neuro Denies syncope Psych Denies change in libido Endo Denies change in libido Physical Exam Const General: cooperative, healthy appearing, comfortable and no acute distress Orientation/consciousness: patient oriented x3 HEENT Face and sinus: Yes normal facial exam Mouth: moist mucous membranes Neck Neck: Yes normal visual inspection, Yes full ROM and Yes trachea midline Chest Chest palpation & inspection: normal inspection of the chest Resp Effort & Inspection: normal respiratory effort, able to speak in complete sentences and no respiratory distress GI Inspection: Yes normal to inspection Back/Spine/Pelvis Cervical Spine: normal cervical lordosis Thoracic/Lumbar Spine: thoracic and lumbar spine normal to inspection Skin General skin exam: no rashes or lesions noted Neuro General: patient oriented x3, gait normal, tone normal and moves all extremities Extrem General: Yes normal to inspection and Yes capillary refill normal Office Procedures Post Void Residual Post Residual Void Post Void Residual (PVR): 37 [id number] Void Residual by ultrasound Results AMB Urinalysis, Automated UA Leukoctes 500 Theresa/uL Last Edit by Isis Mera [facility] on 09/28/23 14:57 UA Nitrite Negative Last Edit by Isis Mera [facility] on 09/28/23 14:57 UA Urobilinogen 0.2 mg/dL Last Edit by Isis Mera [facility] on 09/28/23 14:57 UA Protein 30 mg/dL Last Edit by Isis Mera [facility] on 09/28/23 14:57 UA pH 6.0 Last Edit by Isis Mera [facility] on 09/28/23 14:57 UA Blood 200 Segun/uL Last Edit by Isis Mera [facility] on 09/28/23 14:57 UA Specific Reading 1.020 Last Edit by Isis Mera [facility] on 09/28/23 14:57 UA Ketone Negative Last Edit by Isis Mera [facility] on 09/28/23 14:57 UA Bilirubin 0 mg/dL Last Edit by Isis Mera [facility] on 09/28/23 14:57 UA Glucose 0 mg/dL Last Edit by Isis Mera [facility] on 09/28/23 14:57 Results Reviewed Results Reviewed: Laboratory Last Values Urine pH (Auto) 6.0 09/28/23 14:55 Specific Reading (Auto) 1.020 09/28/23 14:55 Urine Protein (Auto) 30 mg/dL 09/28/23 14:55 Glucose (UA)(Auto) 0 mg/dL 09/28/23 14:55 Urine Ketones (Auto) Negative 09/28/23 14:55 Urine Blood (Auto) 200 Segun/uL 09/28/23 14:55 Urine Nitrite (Auto) Negative 09/28/23 14:55 Urine Bilirubin (Auto) 0 mg/dL 09/28/23 14:55 Urine Urobilinogen (Auto) 0.2 mg/dL 09/28/23 14:55 Leukocyte Esterase (Auto) 500 Theresa/uL 09/28/23 14:55 Assessment & Plan Assessment & Plan (1) Erectile dysfunction associated with type 2 diabetes mellitus: Code(s): E11.69 - Type 2 diabetes mellitus with other specified complication; N52.1 - Erectile dysfunction due to diseases classified elsewhere (2) Bladder outlet obstruction: Code(s): N32.0 - Bladder-neck obstruction (3) Elevated PSA: Code(s): R97.20 - Elevated prostate specific antigen [PSA] Plan Antibiotics Refill erectile medications 6 month follow-up Orders: Orders AMB Post Void Residual by ultrasound Today R33.9 - Retention of urine, unspecified AMB Urinalysis Automated Today R33.9 - Retention of urine, unspecified Urine Culture Today N39.0 - Urinary tract infection, site not specified Medications: New sulfamethoxazole-trimethoprim 800-160 mg (Bactrim DS) 1 tab PO DAILY 28 tabs 0RF 28 days N32.0 - Bladder-neck obstruction tadalafil 5 mg PO DAILY 90 tabs 0RF sexual activity 90 days E11.69 - Type 2 diabetes mellitus with other specified complication, N52.1 - Erectile dysfunction due to diseases classified elsewhere Patient Instructions: Imaging studies, laboratory and physical exam results were discussed and reviewed in detail. No major barriers to patient understanding were identified. An opportunity to ask questions regarding the treatment plan was provided. All questions were answered. The patient expressed understanding and agreement with the above treatment plan. The patient is aware they should contact our office by phone for worsening of their current condition or the appearance of new urologic symptoms. Compliance is encouraged with any medications and followup testing that is ordered. It is a privilege to participate in the urologic care of your patient. If you have any questions or concerns regarding treatment for the above conditions, or other urologic issues, please do not hesitate to contact me. The office telephone contact is [phone]. This note is constructed using voice recognition software. While every effort has been made to ensure accuracy brazer controlled atmospheric furnace errors may have been included. Yours sincerely, Dr Mati Mistry MD, [facility] Urology Providers of Expert, Compassionate Care for the Genitourinary System Coding Level of Care Code Est Pt Level 4 (95628) Diagnoses Erectile dysfunction associated with type 2 diabetes mellitus E11.69; N52.1 Bladder outlet obstruction N32.0 Elevated PSA R97.20 CPT Codes Post Residual Void - PVR CPT Code: 45628-Cixz Void Residual by ultrasound ([id number])
== END 2023-09-28 15:23 | disposition home or self-care (01) ==
PROVIDERS: PCP Nurse Practitioner Primary Care; Visit Provider Urology
DX: R33.9 Retention of urine, unspecified (principal)
CPT/HCPCS: 99024

== ENCOUNTER 2023-10-07 10:57 | Outpatient (AMB) | payer MEDICAID, SELFPAY ==
--- NOTE | 2023-10-07 09:35 | A.OFFVIS_ITS ---
Intake Intake Visit Reasons: LDCT [place] Allergies lisinopril Allergy (Verified 09/28/23 14:52) COUGH HPI HPI Comments History of Present Illness Details Jered is a pleasant 58 year old male, former smoker, quit 2011 with a 20 PYH. Patient started smoking at age 17 for 20 years at 1 ppd. Denies marijuana use. Denies exposure to chemicals or substances like asbestos. Denies second hand smoke exposure. Denies known family history of lung cancer. Denies personal history of cancers. Denies chest CT in last year. Denies recent travel outside the [place]. Denies testing positive for COVID. Admits receiving COVID Vaccine. Denies fever, chills, chest pain, new cough, hemoptysis or unintentional weight loss. Lung Cancer Screening Questionnaire reviewed with patient by provider. Shared Decision Making Completed. Discussed in detail with patient, the risk versus benefit of LDCT screening. Patient in agreement of proceeding with scan. [facility] Medical History Tubular adenoma Arthritis GERD (gastroesophageal reflux disease) High cholesterol Diabetes Hypertension Surgical History Status post laparoscopic cholecystectomy Hx of prostate biopsy Hx of colonoscopy Hx of foot surgery Hx of foot surgery Family History Father No problems noted. Social History Household Members: Significant Other Housing: Apartment Do you presently have visiting nurse or other home services: No Alcohol intake: never Patient Tobacco Use Status: Former Tobacco user Quit Date: 2011 Assessment & Plan Assessment & Plan (1) Personal history of tobacco use: Code(s): Z87.891 - Personal history of nicotine dependence Plan Shared decision-making visit completed today in office. This patient meets criteria for LDCT for lung cancer screening purposes and is asymptomatic. Patient has been scheduled for a low dose chest CT for screening purposes at [facility]. We discussed how the results will be obtained depending on CT findings. RADS 1 and RADS 2 will receive a letter with results and will follow up for annual LDCT. Patient informed they will be contacted at later date to schedule upcoming LDCT scan. RADS 3 and RADS 4 will receive a telephone call, or an office visit after reviewing case at our Lung Cancer Conference to determine when the next LDCT will be scheduled or further interventions that may be needed. Discussed importance of screening program and compliance with yearly LDCT scan as scheduled. Risks, benefits, and alternatives were discussed in detail and patient agrees to proceed. Risks discussed include but are not limited to: radiation exposure and possibility of additional intervention for benign disease. Benefits include detection of lung cancer at an early stage. A copy of today's visit and LDCT results will be sent to patient's PCP. Incidental findings on LDCT are PCP's responsibility. If there are incidental findings, our office will ensure that PCP office is aware of these findings. All questions were answered and patient is in agreement of plan. Coding Level of Care Code Lung Cancer Screening G0296 Diagnoses Personal history of tobacco use Z87.891
== END 2023-10-07 15:08 | disposition home or self-care (01) ==
PROVIDERS: PCP Nurse Practitioner Primary Care; Referring Provider Nurse Practitioner Primary Care; Visit Provider Nurse Practitioner Family
DX: Z87.891 Personal history of nicotine dependence (principal)
CPT/HCPCS: G0296

== ENCOUNTER 2023-10-07 11:30 | Outpatient (REF) | payer MEDICAID, SELFPAY ==
--- NOTE | ~2023-10-07 | CT_ITS ---
EXAMINATION: CT CHEST SCREENING CLINICAL INFORMATION: Quit smoking 8 years ago. 30 pack-year history. COMPARISON: Chest radiograph 07/24/2007. TECHNIQUE: Multidetector volumetric CT imaging of the chest is performed without contrast using low dose technique. Additional 2D coronal and sagittal reformatted images and axial 3D maximum intensity projection (MIP) images are generated on the CT workstation. This CT examination was performed using dose optimization techniques as appropriate, variously including the following: *Automated exposure control *Adjustment of mA and/or kV according to patient size (this includes techniques or standardized protocols for targeted exams where dose is matched to indication/reason for exam; i.e. extremities or head) *Use of iterative reconstruction technique DLP: 85 mGy-cm FINDINGS: LUNGS: The lungs are clear with no evidence of inflammation or nodules. MEDIASTINUM: The mediastinum is normal. CORONARY ARTERY CALCIFICATION: None visualized on this study. PLEURA: There is no pleural effusion. No pleural mass or thickening. AXILLA: No lymphadenopathy. UPPER ABDOMEN: Unremarkable. OSSEOUS STRUCTURES: Unremarkable. CT/CT lung screening IMPRESSION: Unremarkable examination. ASSESSMENT: Lung-RADS category 1: Negative. RECOMMENDATION: Routine annual low-dose CT screening in 12 months.
== END 2023-10-07 11:31 | disposition home or self-care (01) ==
LOC: HO.CT 11:30
PROVIDERS: PCP Nurse Practitioner Primary Care; Visit Provider Nurse Practitioner Family
DX: Z12.2 Encounter for screening for malignant neoplasm of respiratory organs (principal); Z87.891 Personal history of nicotine dependence
CPT/HCPCS: 71271; G0296

== ENCOUNTER 2023-12-28 13:02 | Outpatient (AMB) | payer MEDICAID, SELFPAY ==
--- NOTE | 2023-12-28 13:05 | MHC.OFFVIS ---
Intake Visit Reasons: 3M Med Review(Tadalafil) Intake Note: Patient is Present for Telephone Follow Up For Urology Med: Finasteride, Tadalafil, Terazosin Antibiotic Allergy:none Blood Thinner:none Allergies lisinopril Allergy (Verified 12/28/23 13:06) COUGH Medication List - Last Reconciled 12/28/23 by Mati Mistry MD blood sugar diagnostic (FreeStyle Lite Strips) As directed famotidine 1 tab PO BEDTIME PRN lancets (FreeStyle Lancets) As directed losartan 100 mg PO DAILY metformin ER 1 tab PO BIDWM tadalafil 10 mg PO DAILY 90 days tadalafil 40 mg (2 x 20 mg) PO ONCE PRN 30 days terazosin 5 mg PO BEDTIME 90 days HPI Comments Details: Jered is a pleasant male. He is a patient of Dr. Yadav. He seen for the following urologic conditions - lower urinary tract symptoms - erectile dysfunction Telemedicine Evaluation 15 min Consultation [employer] Romina Video Follow-up from daily tadalafil 5 mg +on demand Has had some degree of effect but not enough to maintain erection Trial high-dose tadalafil protocol with 10 mg daily and up to 40 mg on demand 3 month follow-up Erectile dysfunction in setting of diabetes Progressive Concurrent diagnoses include hypertension, diabetes Response to tadalafil 5 mg daily with 20 mg on demand Lower urinary tract symptoms Initial symptoms of urinary hesitancy and weakness of stream Ongoing for the past 2-3 years in progressive Was associated with episode of hematuria in March 2021 Cystoscopy 02/10 large bilobar prostate Therapy terazosin and finasteride PSA 04/11 7.8, 02/10 6.1, 03/13 7.3 18% GreenLight laser 09/14 - chronic inflammation on tissue diagnosis Prostate biopsy 08/12 NAD 110gm on [facility] Medical History Tubular adenoma Arthritis GERD (gastroesophageal reflux disease) High cholesterol Diabetes Hypertension Surgical History Status post laparoscopic cholecystectomy Hx of prostate biopsy Hx of colonoscopy Hx of foot surgery Hx of foot surgery Family History Father No problems noted. Social History Household Members: Significant Other Housing: Apartment Do you presently have visiting nurse or other home services: No Alcohol intake: never Patient Tobacco Use Status: Former Tobacco user Quit Date: 2011 Review of Systems Const All systems reviewed & are unremarkable except as noted in HPI and below Reports no additional complaints Resp Reports no additional complaints GI Reports no additional complaints Reports as per HPI Musc Reports no additional complaints Physical Exam Telemedicine evaluation Appropriate responses Regular breathing rate and rhythm HEENT Head: Yes normal to inspection Ears: hearing grossly normal bilaterally Eyes General: appearance normal, both eyes and all related structures Neck Neck: Yes normal visual inspection Chest Chest palpation & inspection: normal inspection of the chest Resp Effort & Inspection: normal respiratory effort and able to speak in complete sentences Telehealth Telehealth Telehealth Platform: [employer] Location of provider rendering services: practice address Location of patient: address on file Patient Identification confirmed using: Name, : Yes Telehealth method: video Patient verbally consented to treatment: Yes Patient verbally consented to billing insurance company: Yes Patient informed of any privacy concerns related to visit: Yes Minutes spent on Phone/Video with Pt.: 15 Assessment & Plan Assessment & Plan (1) Erectile dysfunction associated with type 2 diabetes mellitus: Code(s): E11.69 - Type 2 diabetes mellitus with other specified complication; N52.1 - Erectile dysfunction due to diseases classified elsewhere Category: Medical (2) Bladder outlet obstruction: Code(s): N32.0 - Bladder-neck obstruction Category: Medical Plan Three-month follow-up tele Medications: Changed From tadalafil 5 mg PO DAILY 90 days 90 tabs 0RF sexual activity E11.69 - Type 2 diabetes mellitus with other specified complication, N52.1 - Erectile dysfunction due to diseases classified elsewhere To tadalafil 10 mg PO DAILY 90 days 90 tabs 0RF sexual activity E11.69 - Type 2 diabetes mellitus with other specified complication, N52.1 - Erectile dysfunction due to diseases classified elsewhere From tadalafil 20 mg PO DAILY 30 days PRN 30 tabs 0RF sexual activity N52.9 - Male erectile dysfunction, unspecified To tadalafil Trial up to 2 tablets 60 minutes before intended activity 40 mg (2 x 20 mg) PO ONCE 30 days PRN 60 tabs 0RF sexual activity N52.9 - Male erectile dysfunction, unspecified Discontinued finasteride Discontinued Reason: Doctor's Order 5 mg PO DAILY 90 days 90 tabs 1RF N13.8 - Other obstructive and reflux uropathy, N40.1 - Benign prostatic hyperplasia with lower urinary tract symptoms, R33.9 - Retention of urine, unspecified sulfamethoxazole-trimethoprim 800-160 mg (Bactrim DS) Discontinued Reason: Doctor's Order 1 tab PO DAILY 28 days 28 tabs 0RF N32.0 - Bladder-neck obstruction Patient Instructions: Imaging studies, laboratory and physical exam results were discussed and reviewed in detail. No major barriers to patient understanding were identified. An opportunity to ask questions regarding the treatment plan was provided. All questions were answered. The patient expressed understanding and agreement with the above treatment plan. The patient is aware they should contact our office by phone for worsening of their current condition or the appearance of new urologic symptoms. Compliance is encouraged with any medications and followup testing that is ordered. It is a privilege to participate in the urologic care of your patient. If you have any questions or concerns regarding treatment for the above conditions, or other urologic issues, please do not hesitate to contact me. The office telephone contact is [phone]. This note is constructed using voice recognition software. While every effort has been made to ensure accuracy medical transcriptionist errors may have been included. Yours sincerely, Dr Mati Mistry MD, [facility] Providers of Expert, Compassionate Care for the Genitourinary System Coding Level of Care Code Tele Est Pt Level 4 (43390) Diagnoses Erectile dysfunction associated with type 2 diabetes mellitus E11.69; N52.1 Bladder outlet obstruction N32.0
== END 2023-12-28 13:44 | disposition home or self-care (01) ==
LOC: HO.HUSH 13:03
PROVIDERS: PCP Nurse Practitioner Primary Care; Visit Provider Urology
DX: E11.69 Type 2 diabetes mellitus with other specified complication (principal); N52.1 Erectile dysfunction due to diseases classified elsewhere; N32.0 Bladder-neck obstruction
CPT/HCPCS: 99214

== ENCOUNTER → 2023-12-28 13:02 | Outpatient (BNVA) | payer MEDICAID, SELFPAY | PROVIDERS: PCP Nurse Practitioner Primary Care; Visit Provider Urology ==

== ENCOUNTER 2024-02-02 09:09 | Outpatient (REF) | payer MEDICAID, SELFPAY ==
[2024-02-02 12:07] LABS: Basophils Absolute Auto 0.1 X10*3/uL (0.0-0.2); Basophils Percent Auto 0.7 % (0-2); Eosinophils Absolute Auto 0.2 X10*3/uL (0.0-0.4); Eosinophils Percent Auto 1.5 % (0-4); Hematocrit 41.4 % (42.0-52.0); Hemoglobin 13.7 g/dl (14.0-18.0); Imm Gran Abs Auto 0.07 X10*3/uL (0.00-0.03); Imm Gran Pct Auto 0.7 % (0.0-0.4); Lymphocytes Absolute Auto 2.5 X10*3/uL (1.2-4.9); MANUAL DIFF FLAG SCAN; Mean Corpuscular HGB Conc 33.1 g/dl (31.0-36.0); Mean Corpuscular Hemoglobin 30.2 pg (27.0-33.0); Mean Corpuscular Volume 91.2 fL (80.0-98.0); Monocytes Absolute Auto 0.8 X10*3/uL (0.1-1.2); Monocytes Percent Auto 7.8 % (2-11); Neutrophils Absolute Auto 6.2 x10*3/uL (2.0-8.3); Neutrophils Percent Auto 63.3 % (45-73); PLT CLUMP 1; Red Blood Count 4.54 X10*6/uL (4.60-5.80); Red Cell Distribution Width 12.1 % (11.0-16.0); SCAN SMEAR FLAG 1
[2024-02-02 12:10] LABS: White Blood Count 9.8 X10*3/uL (4.8-10.8)
[2024-02-02 12:18] LABS: Alanine Aminotransferase 23 U/L (0-40); Albumin Level 4.1 g/dL (3.5-5.0); Alkaline Phosphatase 73 U/L (39-117); Anion Gap 8 (12-20); Aspartate Amino Transferase 21 U/L (5-37); Bilirubin Direct 0.1 mg/dL (0.0-0.5); Bilirubin Total 0.3 mg/dL (0.0-1.0); Blood Urea Nitrogen 19 mg/dL (9-16); Calcium 9.2 mg/dL (8.4-10.2); Carbon Dioxide 30 mmol/L (22-29); Chloride 104 mmol/L (96-108); Cholesterol 196 mg/dL (<200); Estimated Glomerular Filt Rate > 60; Glucose Random 116 mg/dL (60-115); HDL Cholesterol 48 mg/dL (>40); LDL Cholesterol Calculated 128 mg/dL (<100); Potassium 4.4 mmol/L (3.3-5.1); Sodium 138 mmol/L (135-145); Total Protein 7.1 g/dL (6.5-8.0); Triglycerides 104 mg/dL (<150)
[2024-02-02 12:30] LABS: Creatinine Urine 250.34 mg/dL
[2024-02-02 12:37] LABS: Vitamin B12 591 pg/mL (200-900)
[2024-02-02 12:38] LABS: Mean Platelet Volume 14.2 fL (9.4-12.4); Platelet Count 153 X10*3/uL (160-400); SLIDE REVIEW VERIFIED
[2024-02-02 12:41] LABS: Microalbum/Creatinine Ratio Ur 309.9 ug/mg cr (<30)
== END 2024-02-02 09:10 | disposition home or self-care (01) ==
LOC: HO.HHCL 09:09
PROVIDERS: Visit Provider Nurse Practitioner Primary Care
DX: E11.59 Type 2 diabetes mellitus with other circulatory complications (principal); I15.2 Hypertension secondary to endocrine disorders
CPT/HCPCS: 36415; 80048; 80061; 80076; 82043; 82570; 82607; 85025

== ENCOUNTER 2024-03-26 06:13 | Outpatient (REF) | payer MEDICAID, SELFPAY ==
[2024-03-27 11:04] LABS: Free Prostate Spec Ag 1.1 ng/mL; Percent Free Prostate Spec Ag 21 % (calc) (>25); Prostate Specific Ag Total 5.3 ng/mL (< OR = 4.0)
== END 2024-03-26 06:14 | disposition home or self-care (01) ==
LOC: HO.LAB 06:13
PROVIDERS: Visit Provider Urology
DX: R97.20 Elevated prostate specific antigen [PSA] (principal)
CPT/HCPCS: 36415; 84153; 84154

== ENCOUNTER 2024-04-03 12:41 | Outpatient (AMB) | payer MEDICAID, SELFPAY ==
--- NOTE | 2024-04-03 12:59 | MHC.OFFVIS ---
Intake Visit Reasons: 3M Follow Up-Med Review/PSA(set) Intake Note: Patient presents to the office today for a 3 month follow up/med review Urology Med:Tadalafil, Terazosin Antibiotic Allergy:none Blood Thinner:none Allergies lisinopril Allergy (Verified 04/03/24 12:59) COUGH Medication List - Last Reconciled 04/03/24 by Mati Mistry MD blood sugar diagnostic (FreeStyle Lite Strips) As directed famotidine 1 tab PO BEDTIME PRN lancets (FreeStyle Lancets) As directed losartan 100 mg PO DAILY metformin ER 1 tab PO BIDWM tadalafil 40 mg (2 x 20 mg) PO ONCE PRN 30 days tadalafil 10 mg PO DAILY 90 days terazosin 5 mg PO BEDTIME 90 days HPI Comments Details: Jered is a pleasant male. He is a patient of Dr. Yadav. He seen for the following urologic conditions - lower urinary tract symptoms - erectile dysfunction Follow-up high-dose tadalafil protocol with 10 mg daily and up to 40 mg on demand Refill medications 3 month follow-up Erectile dysfunction in setting of diabetes Progressive Concurrent diagnoses include hypertension, diabetes Response to tadalafil 5 mg daily with 20 mg on demand Lower urinary tract symptoms Initial symptoms of urinary hesitancy and weakness of stream Ongoing for the past 2-3 years in progressive Was associated with episode of hematuria in March 2021 Cystoscopy 02/10 large bilobar prostate Therapy terazosin and finasteride PSA 04/11 7.8, 02/10 6.1, 03/13 7.3 18%, 04/14 5.1 21% GreenLight laser 09/14 - chronic inflammation on tissue diagnosis Prostate biopsy 08/12 NAD 110gm on US [facility] Medical History Tubular adenoma Arthritis GERD (gastroesophageal reflux disease) High cholesterol Diabetes Hypertension Surgical History Status post laparoscopic cholecystectomy Hx of prostate biopsy Hx of colonoscopy Hx of foot surgery Hx of foot surgery Family History Father No problems noted. Social History Household Members: Significant Other Housing: Apartment Do you presently have visiting nurse or other home services: No Alcohol intake: never Patient Tobacco Use Status: Former Tobacco user Review of Systems Const Denies chills and Denies fever(s) Card Reports no additional complaints and Denies syncope Resp Denies cough GI Denies abdominal pain and Denies heartburn Reports as per HPI and Denies change in libido Neuro Denies syncope Psych Denies change in libido Endo Denies change in libido Physical Exam Const General: cooperative, healthy appearing, comfortable and no acute distress Orientation/consciousness: patient oriented x3 HEENT Face and sinus: Yes normal facial exam Mouth: moist mucous membranes Neck Neck: Yes normal visual inspection, Yes full ROM and Yes trachea midline Chest Chest palpation & inspection: normal inspection of the chest Resp Effort & Inspection: normal respiratory effort, able to speak in complete sentences and no respiratory distress GI Inspection: Yes normal to inspection Back/Spine/Pelvis Cervical Spine: normal cervical lordosis Thoracic/Lumbar Spine: thoracic and lumbar spine normal to inspection Skin General skin exam: no rashes or lesions noted Neuro General: patient oriented x3, gait normal, tone normal and moves all extremities Extrem General: Yes normal to inspection and Yes capillary refill normal Assessment & Plan Assessment & Plan (1) Erectile dysfunction associated with type 2 diabetes mellitus: Code(s): E11.69 - Type 2 diabetes mellitus with other specified complication; N52.1 - Erectile dysfunction due to diseases classified elsewhere Category: Medical (2) Bladder outlet obstruction: Code(s): N32.0 - Bladder-neck obstruction Category: Medical Plan Three-month follow-up tele Trial high-dose tadalafil Orders: Orders PSA,Total (Free>4and<10) 03/26/24 R97.20 - Elevated prostate specific antigen [PSA] Medications: Refilled tadalafil Trial up to 2 tablets 60 minutes before intended activity 40 mg (2 x 20 mg) PO ONCE PRN 30 tabs 0RF sexual activity 30 days N52.9 - Male erectile dysfunction, unspecified tadalafil 10 mg PO DAILY 90 tabs 0RF sexual activity 90 days E11.69 - Type 2 diabetes mellitus with other specified complication, N52.1 - Erectile dysfunction due to diseases classified elsewhere Patient Instructions: Imaging studies, laboratory and physical exam results were discussed and reviewed in detail. No major barriers to patient understanding were identified. An opportunity to ask questions regarding the treatment plan was provided. All questions were answered. The patient expressed understanding and agreement with the above treatment plan. The patient is aware they should contact our office by phone for worsening of their current condition or the appearance of new urologic symptoms. Compliance is encouraged with any medications and followup testing that is ordered. It is a privilege to participate in the urologic care of your patient. If you have any questions or concerns regarding treatment for the above conditions, or other urologic issues, please do not hesitate to contact me. The office telephone contact is [phone]. This note is constructed using voice recognition software. While every effort has been made to ensure accuracy apprentice plant attendant errors may have been included. Yours sincerely, Dr Mati Mistry MD, [facility] - Urology Providers of Expert, Compassionate Care for the Genitourinary System Coding Level of Care Code Est Pt Level 4 (77705) Diagnoses Erectile dysfunction associated with type 2 diabetes mellitus E11.69; N52.1 Bladder outlet obstruction N32.0
== END 2024-04-03 13:56 | disposition home or self-care (01) ==
PROVIDERS: PCP Nurse Practitioner Primary Care; Referring Provider Nurse Practitioner Primary Care; Visit Provider Urology
DX: E11.69 Type 2 diabetes mellitus with other specified complication (principal); N52.1 Erectile dysfunction due to diseases classified elsewhere; N32.0 Bladder-neck obstruction
CPT/HCPCS: 99214

== ENCOUNTER → 2024-04-03 12:41 | Outpatient (BNVA) | payer MEDICAID, SELFPAY | PROVIDERS: PCP Nurse Practitioner Primary Care; Visit Provider Urology | DX: E11.69 Type 2 diabetes mellitus with other specified complication (principal); N52.1 Erectile dysfunction due to diseases classified elsewhere; R39.11 Hesitancy of micturition; R39.12 Poor urinary stream; N32.0 Bladder-neck obstruction; R97.20 Elevated prostate specific antigen [PSA]; I10 Essential (primary) hypertension; Z79.899 Other long term (current) drug therapy | CPT/HCPCS: 99212 ==

== ENCOUNTER 2024-07-04 13:31 | Outpatient (AMB) | payer MEDICAID, SELFPAY ==
--- NOTE | 2024-07-04 13:36 | MHC.OFFVIS ---
Intake Visit Reasons: 3M Med Review(Tadalafil) Intake Note: Patient is present for Telephone Med Review(Tadalafil) Urology Med: Tadalafil, Terazosin Antibiotic Allergy: None Blood Thinner: None Last PSA: 03/26/24- 5.10(H) Manager Assessment Required: No Accompanied by: Self / Same As Patient Allergies lisinopril Allergy (Verified 07/04/24 13:39) COUGH Medication List - Last Reconciled 07/04/24 by Mati Mistry MD aspirin 1 tab PO DAILY blood sugar diagnostic (FreeStyle Lite Strips) As directed famotidine 1 tab PO BEDTIME PRN lancets (FreeStyle Lancets) As directed losartan 100 mg PO DAILY metformin ER 1 tab PO BIDWM rosuvastatin 10 mg PO DAILY tadalafil 10 mg PO DAILY 90 days tadalafil 40 mg (2 x 20 mg) PO ONCE PRN 30 days terazosin 5 mg PO BEDTIME 90 days HPI Comments Details: Jered is a pleasant male. He is a patient of Dr. Yadav. He seen for the following urologic conditions - lower urinary tract symptoms - erectile dysfunction Telemedicine Evaluation 15 min Consultation [facility] Romina Video Three-month follow-up high-dose tadalafil protocol with 10 mg daily and up to 40 mg on demand Good response Refill provided Erectile dysfunction in setting of diabetes Progressive Concurrent diagnoses include hypertension, diabetes Good response to high-dose tadalafil protocol Lower urinary tract symptoms Initial symptoms of urinary hesitancy and weakness of stream Ongoing for the past 2-3 years in progressive Was associated with episode of hematuria in March 2021 Cystoscopy 02/10 large bilobar prostate Therapy terazosin and finasteride PSA 04/11 7.8, 02/10 6.1, 03/13 7.3 18%, 04/14 5.1 21% GreenLight laser 09/14 - chronic inflammation on tissue diagnosis Prostate biopsy 08/12 NAD 110gm on US [facility] Medical History (Updated 07/04/24 @ 14:19 by Mait Mistry MD) Erectile dysfunction Tubular adenoma Arthritis GERD (gastroesophageal reflux disease) High cholesterol Diabetes Hypertension Surgical History Status post laparoscopic cholecystectomy Hx of prostate biopsy Hx of colonoscopy Hx of foot surgery Hx of foot surgery Family History Father No problems noted. Social History Household Members: Significant Other Housing: Apartment Do you presently have visiting nurse or other home services: No Alcohol intake: never Patient Tobacco Use Status: Former Tobacco user Review of Systems Const All systems reviewed & are unremarkable except as noted in HPI and below Reports no additional complaints Resp Reports no additional complaints GI Reports no additional complaints Reports as per HPI Musc Reports no additional complaints Physical Exam Telemedicine evaluation Appropriate responses Regular breathing rate and rhythm HEENT Head: Yes normal to inspection Ears: hearing grossly normal bilaterally Eyes General: appearance normal, both eyes and all related structures Neck Neck: Yes normal visual inspection Chest Chest palpation & inspection: normal inspection of the chest Resp Effort & Inspection: normal respiratory effort and able to speak in complete sentences Telehealth Telehealth Telehealth Platform: [facility] Location of provider rendering services: practice address Location of patient: address on file Patient Identification confirmed using: Name, : Yes Telehealth method: video Patient verbally consented to treatment: Yes Patient verbally consented to billing insurance company: Yes Patient informed of any privacy concerns related to visit: Yes Minutes spent on Phone/Video with Pt.: 15 Assessment & Plan Assessment & Plan (1) Erectile dysfunction associated with type 2 diabetes mellitus: Code(s): E11.69 - Type 2 diabetes mellitus with other specified complication; N52.1 - Erectile dysfunction due to diseases classified elsewhere Category: Medical (2) Incomplete emptying of bladder due to benign prostatic hyperplasia: Code(s): N40.1 - Benign prostatic hyperplasia with lower urinary tract symptoms; R33.9 - Retention of urine, unspecified Category: Medical Plan Six-month follow-up Orders: Orders Prostate Specific Antigen 06/27/24 R97.20 - Elevated prostate specific antigen [PSA] Medications: Refilled tadalafil 10 mg PO DAILY 90 days 90 tabs 1RF sexual activity E11.69 - Type 2 diabetes mellitus with other specified complication, N52.1 - Erectile dysfunction due to diseases classified elsewhere tadalafil Trial up to 2 tablets 60 minutes before intended activity 40 mg (2 x 20 mg) PO ONCE 30 days PRN 30 tabs 0RF sexual activity N52.9 - Male erectile dysfunction, unspecified Patient Instructions: Imaging studies, laboratory and physical exam results were discussed and reviewed in detail. No major barriers to patient understanding were identified. An opportunity to ask questions regarding the treatment plan was provided. All questions were answered. The patient expressed understanding and agreement with the above treatment plan. The patient is aware they should contact our office by phone for worsening of their current condition or the appearance of new urologic symptoms. Compliance is encouraged with any medications and followup testing that is ordered. It is a privilege to participate in the urologic care of your patient. If you have any questions or concerns regarding treatment for the above conditions, or other urologic issues, please do not hesitate to contact me. The office telephone contact is [phone]. This note is constructed using voice recognition software. While every effort has been made to ensure accuracy wedger errors may have been included. Yours sincerely, Dr Mati Mistry MD, [facility] - Urology Providers of Expert, Compassionate Care for the Genitourinary System Coding Level of Care Code Tele Est Pt Level 3 (90690) Diagnoses Erectile dysfunction associated with type 2 diabetes mellitus E11.69; N52.1 Incomplete emptying of bladder due to benign prostatic hyperplasia N40.1; R33.9
== END 2024-07-04 14:55 | disposition home or self-care (01) ==
PROVIDERS: PCP Nurse Practitioner Primary Care; Visit Provider Urology
DX: E11.69 Type 2 diabetes mellitus with other specified complication (principal); N52.1 Erectile dysfunction due to diseases classified elsewhere; N40.1 Benign prostatic hyperplasia with lower urinary tract symptoms; R33.9 Retention of urine, unspecified
CPT/HCPCS: 99213

== ENCOUNTER 2024-07-31 10:21 | Outpatient (REF) | payer MEDICAID, SELFPAY ==
[2024-07-31 12:14] LABS: Cholesterol 143 mg/dL (<200); HDL Cholesterol 53 mg/dL (>40); LDL Cholesterol Calculated 78 mg/dL (<100); Triglycerides 60 mg/dL (<150)
[2024-07-31 12:23] LABS: Creatinine Urine 163.96 mg/dL; Microalbum/Creatinine Ratio Ur 134.1 ug/mg cr (<30)
[2024-07-31 12:34] LABS: Prostate Specific Antigen 7.52 ng/mL (<0.05-4.0)
== END 2024-07-31 10:22 | disposition home or self-care (01) ==
LOC: HO.HHCL 10:21
PROVIDERS: Urology; Visit Provider Nurse Practitioner Primary Care
DX: R97.20 Elevated prostate specific antigen [PSA] (principal); E11.69 Type 2 diabetes mellitus with other specified complication; E78.5 Hyperlipidemia, unspecified
CPT/HCPCS: 36415; 80061; 82043; 82570; 84153

== ENCOUNTER → 2024-08-24 09:36 | Outpatient (REF) | payer MEDICAID, SELFPAY | LOC: HO.CARD 09:36 | PROVIDERS: PCP Nurse Practitioner Primary Care; Visit Provider Nurse Practitioner Primary Care | DX: R00.2 Palpitations (principal) | CPT/HCPCS: 93225 ==

== ENCOUNTER → 2024-08-24 09:39 | Outpatient (BNV) | payer MEDICAID, SELFPAY | PROVIDERS: PCP Nurse Practitioner Primary Care; Visit Provider Internal Medicine | DX: I47.10 Supraventricular tachycardia, unspecified (principal) | CPT/HCPCS: 93227 ==

== ENCOUNTER 2024-12-27 08:22 | Outpatient (REF) | payer MEDICAID, SELFPAY ==
--- OUTSIDE RECORDS SUMMARY | 2024-12-27 08:40 | XMS_ITS | Encounter Summary ---
Author Organization [facility] Address [address] [place] [address] Care Team Providers Care System Safety Engineer Name Role Phone Nola Yadav Primary Care Provider [phone] Encounter Details Date Type Department Care Team (Latest Contact Info) Description 10/13/2020 Abstract [facility] CONVERSIONS Dental, Provider, DDS Social History Tobacco Use Types Packs/Day Years Used Date Smoking Tobacco: Never Assessed Sex and Gender Information Value Date Recorded Sex Assigned at Male 06/21/2022 10:19 AM EDT Legal Sex Male 10:19 AM EDT Gender Identity Male 06/21/2022 10:19 AM EDT Sexual Orientation Straight 06/21/2022 10 :19 AM EDT documented as of this encounter Plan of Treatment Upcoming Encounters Date Type Department Care Team (Late st Contact Info) Description 02/19/2025 2:00 PM EDT Office Visit [facility] MEDICINE [address] [place] [address] Nola Yadav ANP [address] [place] [address] 02/27/2025 9:00 AM EDT Office Visit [facility] ADULT DENTAL [address] [place] [address] Belle, Ingrid [address] [place] [address] documented as of this encounter Visit Diagnoses Not on filedocumented in this encounter Care Teams System Safety Engineer Relationship Specialty Start Date End Date Nola Yadav ANP [address] [place] [id number] PCP - General Family Medicine 04/03/21 documented as of this encounter
--- OUTSIDE RECORDS SUMMARY | 2024-12-27 08:40 | XMS_ITS | Encounter Summary ---
Author Organization [employer] Address [address] [place] [address] Care Team Providers Care Asset Management Coordinator Name Role Phone Nola Yadav Primary Care Provider Encounter Details Date Type Department Care Team (Late st Contact Info) Description 07/28/2023 Orders Only [facility] MEDICINE [address] [place], [place] [phone] Jacob Torrez, PharmD [address] [place], [place] [phone] Social History Tobacco Use Types Packs/Day Years Used Date Smoking Tobacco: Former Cigarettes Smokeless Tobacco: Never Alcohol Use Standard Drinks/Week Comments Not Currently 0 (1 standard drink = 0.6 oz pur e alcohol) Depression Answer Date Recorded Patient Health Questionnaire-9 Score 0 07/26/2023 Patient Health Questionnaire-9 Score 0 07/26/2023 Last PHQ-9: Questionnaire Data Not on file 1 09/26/2022 Housing Stability Answer Date Recorded What is your housing situation today? I have keny[place] lan 07/19/[address] you li ve. Do you have problems with any of the following? None of the above 07/19/2023 Food Insecurity Answer Date Recorded Within the past 12 months, y ou worried that your food would run out before you got money to buy more: Never True 07/19/2023 Within the past 12 months,th e food you bought just didn't last and you didn't have enough money to get more: Never True Transportation Answer Date Recorded In the past 12 months, has l ack of transportation kept you from medical appts, meetings, work or from getting things needed for daily living? No 07/19/2023 Utilities Answer Date Recorded In the past 12 months, has t he [employer], gas, oil or water [employer] threatened to shut off services in your home? No 07/19/2023 Depression Answer Date Recorded Patient Health Questionnaire-2 Score 0 07/26/2023 Sex and Gender Information Value Date Recorded Sex Assigned at Male 06/21/2022 10:19 AM EDT Legal Sex Male 10:19 AM EDT Gender Identity Male 06/21/2022 10:19 AM EDT Sexual Orientation Straight 06/21/2022 10 :19 AM EDT documented as of this encounter Plan of Treatment Upcoming Encounters Date Type Department Care Team (Late st Contact Info) Description 02/19/2025 2:00 PM EDT Office Visit [facility] MEDICINE [address] [place] [address] Nola Yadav ANP [address] [place] [address] 02/27/2025 9:00 AM EDT Office Visit [facility] ADULT DENTAL [address] [place] [address] Ingrid Odonnell [address] [place] [address] documented as of this encounter Visit Diagnoses Not on filedocumented in this encounter Additional Health Concerns Assessment Noted Time PHQ-9 Depression Total Score: 0 07/26/20 23 2:54 PM EST documented as of this encounter Care Teams Asset Management Coordinator Relationship Specialty Start Date End Date Nola Yadav ANP [address] [place] [id number] PCP - General Family Medicine 04/03/21 documented as of this encounter
--- OUTSIDE RECORDS SUMMARY | 2024-12-27 08:40 | XMS_ITS | Encounter Summary ---
Author Organization [facility] [employer] [facility] Address [address] [place] [address] Care Team Providers Care User Interface Artist Name Role Phone Nola Yadav Primary Care Provider [phone] Encounter Details Date Type Department Care Team (Latest Contact Info) Description 01/08/2022 Abstract [facility] CONVERSIONS Dental, Provider, DDS Social History [...] Description 02/19/2025 2:00 PM EDT Office Visit [facility] MEDICINE [address] [place] [address] Nola Yadav ANP [address] [place] [address] 02/27/2025 9:00 AM EDT Office Visit [facility] ADULT DENTAL [address] [place] [address] Belle, Ingrid [address] [place] [address] documented as of this encounter Visit Diagnoses Not on filedocumented in this encounter Care Teams User Interface Artist Relationship Specialty Start Date End Date Nola Yadav ANP [address] [place] [id number] PCP - General Family Medicine 04/03/21 documented as of this encounter
--- OUTSIDE RECORDS SUMMARY | 2024-12-27 08:40 | XMS_ITS | Clinical Summary ---
Author Organization [employer] Address [address] [facility] 7t [place] [address] Care Team Providers Care Boom Stick Man Name Role Phone Nola Yadav Primary Care Provider [phone] Allergies No known active allergies Medications docusate sodium (Colace) 100 MG capsule TAKE 1 CAPSULE BY MOUTH EVERYDAY AT BEDTIME 2 Active famotidine (Pepcid) 20 MG tablet Take 20 mg by mouth at bedtime. 2 Active finasteride (Proscar) 5 MG tablet TAKE 1 TABLET BY MOUTH EVERY DAY FOR 90 DAYS 2 Active terazosin (Hytrin) 5 MG capsule TAKE 1 CAPSULE BY MOUTH EVERYDAY AT BEDTIME 3 Active Blood Glucose Monitoring Suppl (FreeStyle glucose monitoring) kitIndications:Ty pe 2 diabetes mellitus with other specified complication, without long-term current use of insulin (CMS/HCC) Use BID. Dx type 2 diabetes 1 each 3 Active FreeStyle lancetsIndication s:Type 2 diabetes mellitus with other specified complication, without long-term current use of insulin (CMS/HCC) Use bid, dx type 2 diabetes 60 each 11 3 Active ibuprofen 600 MG tablet TAKE 1 TABLET BY MOUTH EVERY 6 HOURS NEEDED FOR PAIN 3 Active tadalafil (Cialis) 20 MG tablet TAKE ONE TABLET BY MOUTH EVERY DAY NEEDED FOR SEXUAL ACTIVITY 3 Active Blood Pressure kit 1 each 1 (one) time per week. 1 kit 3 Active FREESTYLE LITE test stripIndications: Type 2 diabetes mellitus with other specified complication, without long-term current use of insulin (CMS/HCC) USE INSTRUCTED TO CHECK BLOOD SUGAR 2-3X PER DAY OR MORE NEEDED 100 strip 11 4 Active LORazepam (Ativan) 0.5 MG tabletIndications :Anxiety Take 1-2 tabs as needed once before procedure 3 tablet 4 Active metFORMIN XR (Glucophage-XR) 500 MG 24 hr tabletIndications :Hypertension associated with diabetes (CMS/HCC) TAKE 1 TABLET BY MOUTH TWICE A DAY WITH MEALS 180 tablet 1 4 Active losartan (Cozaar) 100 MG tabletIndications :Hypertension associated with diabetes (CMS/HCC) Take 1 tablet (100 mg) by mouth Once per day. 90 tablet 3 4 Active rosuvastatin (Crestor) 10 MG tabletIndications :Type 2 diabetes mellitus with other specified complication, without long-term current use of insulin (CMS/HCC) Take 1 tablet (10 mg) by mouth Once daily. 90 tablet 3 4 07/09/20 25 Active Aspirin Low Dose 81 MG chewable tabletIndications :Type 2 diabetes mellitus with other specified complication, without long-term current use of insulin (CMS/HCC) CHEW 1 TABLET (81 MG) ONCE DAILY. 90 tablet 3 4 Active Senna-Time 8.6 MG tabletIndications :Constipation, unspecified constipation type Take 2 tablets (17.2 mg) by mouth Once daily as needed for constipation. 60 tablet 2 4 Active Active Problems Problem Noted Date Diagnosed Date Excessive attrition of teeth, limited to enamel 08/20/2024 Acute periodontal abscess 06/22/2023 Periodontal disease 06/22/2023 Missing teeth, acquired 06/22/2023 Generalized gingival recession 06/22/2023 Dental calculus 06/22/2023 Class 2 obesity 09/28/2022 HLD (hyperlipidemia) 09/28/2022 Painful orthopaedic hardware 09/28/2022 Benign prostatic hyperplasia 01/07/2022 HTN (hypertension) 07/13/2021 Type 2 diabetes mellitus with hyperlipidemia (CM S/HCC) 07/13/2021 Overview (01/31/2024): Lab Results Component Value Date HGBA1C 6.3 (A) 01/31/2024 HGBA1C 6.2 (A) 07/26/2023 HGBA1C 6.3 (H) 09/28/2022 A1c at goal </= 7.0 Very stable. Cont metformin XR 500mg BID On ARB, statin, ASA Foot exam normal 01/31/24 Eye exam utd IZ UTD Resolved Problems Problem Noted Date Diagnosed Date Resolved Date Epilepsy 09/28/2022 11/01/2023 Overview (09/28/2022): as a child stopped age 11 Encounters Date Type Department Care Team Description 12/06/2024 9:00 AM EDT Office Visit [facility] OPTOMETRY [address] [place] [address] Mónica Leblanc, OD Type 2 diabetes mellitus without ophthalmic manifestations (CMS/[facility]) (Primary Dx); Subjective visual disturbance; Combined form of age-related cataract, both eyes; Hyperopia of both eyes with astigmatism and presbyopia 12/06/2024 Travel 11/27/2024 Telephone [facility] MEDICINE [address] [place] [address] Nola Yadav ANP February recall 11/23/2024 Telephone [facility] MEDICINE [address] [place] [phone] Nola Yadav ANP cancel appointment on 01/28/2025 11/21/2024 Telephone [facility] MEDICINE [address] [place] [address] Nola Yadav ANP 11/20/2024 Orders Only [facility] MEDICINE [address] [place] [address] Nola Yadav ANP Albuminuria (Primary Dx) 11/02/2024 Population Health Risk Score [facility] () Department [address] [place] [phone] Provider, Population Health Generic 10/23/2024 Telephone [facility] MEDICINE [address] [place] [address] Nola Yadav ANP January Recall from Last 3 Months Immunizations Name Administration Dates Next Due Pfizer Covid-19 Vaccine 12+ 08/02/2023,0 09/14/2021,03/08/2021,2020 Pfizer Covid-19 Vaccine 12+ Bivalent 09/28/2022 Pneumococcal Conjugate PCV 20 06/08/2022 Tdap 04/03/2021 Zoster, Recombinant 08/25/2021,06/11/2021 Social History Tobacco Use Types Packs/Day Years Used Date Smoking Tobacco: Former Cigarettes Smokeless Tobacco: Never Tobacco Cessation:Counseling Given: Not Answered Alcohol Use Standard Drinks/Week Comments Not Currently 0 (1 standard drink = 0.6 oz pur e alcohol) Depression Answer Date Recorded Patient Health Questionnaire-9 Score 5 07/31/2024 Patient Health Questionnaire-9 Score 5 07/31/2024 Last PHQ-9: Questionnaire Data Not on file 1 10/01/2023 Housing Stability Answer Date Recorded What is [...] the past 12 months, has t he electric, gas, oil or water company threatened to shut off services in your home? No 07/19/2023 Depression Answer Date Recorded Patient Health Questionnaire-2 Score 2 07/31/2024 Sex and Gender Information Value Date Recorded Sex Assigned at Male 06/21/2022 10:19 AM EDT Legal Sex Male 10:19 AM EDT Gender Identity Male 06/21/2022 10:19 AM EDT Sexual Orientation Straight 06/21/2022 10 :19 AM EDT Last Filed Vital Signs Vital Sign Reading Time Taken Comments Blood Pressure 124/74 09/06/2024 1:55 PM EST Pulse 64 07/31/2024 9:33 AM EST Temperature 36.6 ??C (97.9 ??F) 07/31/2024 9:33 AM ES T Respiratory Rate 14 07/31/2024 9:33 AM EST Oxygen Saturation 97% 07/31/2024 9:33 AM EST Inhaled Oxygen Concentration - - Weight 110 kg (241 lb 9.6 oz) 07/31/2024 9:33 AM EST Height 172.7 cm (5' 8 ) 01/31/2024 1:06 PM EDT Body Mass Index 36.74 01/31/2024 1:06 PM EDT Plan of Treatment Upcoming Encounters Date Type Department Care Team (Late st Contact Info) Description 02/19/2025 2:00 PM EDT Office Visit [facility] MEDICINE [address] [place] [address] Nola Yadav ANP [address] [place] [address] 02/27/2025 9:00 AM EDT Office Visit [facility] ADULT DENTAL [address] [place] [address] Ingrid Odonnell [address] [place] [address] Health Maintenance Due Date Last Done Comments CT Colonography 1966 FIT DNA/Cologuard 1966 FIT 1966 FOBT 1966 Sigmoidoscopy 1966 Hepatitis B Vaccines (1 of 3 - 19+ 3-dose series) 1985 COVID-19 Vaccine ( season) 2024 08/02/2023, 09/28/2022, 09/14/2021, Additional history exists Influenza Vaccine (#1) 2024 Colonoscopy 09/23/2024 09/23/2021 Colorectal Cancer Screening 09/23/2024 SDOH Screening 01/19/2025 01/20/2024 Diabetes: Hemoglobin A1C 01/29/20252 024, 01/31/2024, 07/26/2023, Additional history exists Diabetes: Foot Exam 01/30/2025 01/31/2024, 01/31/2024, 01/31/2024, Additional history exists Dental Oral Exam 02/19/2025 08/20/2024, 08/2022, 01/08/2022, Additional history exists Dental Prophylaxis 02/19/2025 08/20/2024, 1 08/22/2022, 07/05/2022, Additional history exists Alcohol/Substance Use Screening 07/31/2025 07/31/2024 Depression Screening 07/31/2025 07/31/2024, 07/31/20 Diabetes: Urine Protein Screening 07/31/2025 07/31/2024, 02/02/2024, 09/28/2022, Additional history exists Lipid Panel 07/31/2025 07/31/2024, 01/20, 03/15/2022, Additional history exists Dental X-Ray: Bitewings 08/21/2025 08/20/20, 06/22/2023, 01/08/2022, Additional history exists Tobacco Screening 12/06/2025 12/06/2024 Eye Exam 12/06/2026 12/06/2024, 11/20, 12/06/2024, Additional history exists Dental X-Ray: Full Mouth 08/21/2027 08/20/2024, 09/23 DTaP/Tdap/Td Vaccines (2 - Td or Tdap) 04/03/2031 04/03/2021 RSV Patients and Patients Aged 60 years or older (1 - 1-dose 75+ series) 2041 HIV Screening Completed 04/03/2021 Hepatitis C Screening Completed 04/03/2021 Zoster Vaccines Completed 08/25/2021, 06/11/2021 Pneumococcal Vaccine: 50+ Years Completed 06/08/2022 HIB Vaccines Aged Out No longer eligi ble based on patient's age to complete this topic HPV Vaccines Aged Out No longer eligi ble based on patient's age to complete this topic Hepatitis A Vaccines Aged Out No long er eligible based on patient's age to complete this topic IPV Vaccines Aged Out No longer eligi ble based on patient's age to complete this topic Meningococcal Vaccine Aged Out No luz maria brandon eligible based on patient's age to complete this topic RSV under 20 months Aged Out No longe r eligible based on patient's age to complete this topic Rotavirus Vaccines Aged Out No longer eligible based on patient's age to complete this topic Procedures Procedure Name Priority Date/Time Associated Diagnosis Comments PROPHYLAXIS - ADULT Routine 08/20/2024 2 :00 PM EST Periodontal disease Dental calculus INTRAORAL - COMPLETE SERIES OF RADIOGRAPHIC IMAGES Routine 08/20/2024 2:00 PM EST Periodontal disease Missing teeth, acquired Generalized gingival recession Dental calculus PERIODIC ORAL EVALUATION - ESTABLISHED PATIENT Routine 08/20/2024 2:00 PM EST ALBUMIN, RANDOM URINE W/CREATININE Routine 07/31/2024 10:23 AM EST Type 2 diabetes mellitus with hyperlipidemia (CMS/HCC) (CMS/HCC) LIPID PANEL, STANDARD Routine 07/31/2024 10:23 AM EST Type 2 diabetes mellitus with hyperlipidemia (CMS/HCC) (CMS/HCC) POCT GLYCATED HEMOGLOBIN, TOTAL Routine 07/31/2024 9:37 AM EST Type 2 diabetes mellitus with hyperlipidemia (CMS/HCC) (CMS/HCC) HM COLONOSCOPY Routine 09/23/2021 ZZZ HISTORICAL HEPATITIS C AB W/REFL TO HCV RNA, QN, PCR Routine 04/03/2021 12:01 PM EDT HIV 1/2 ANTIGEN/ANTIBODY, FOURTH GENERATION W/RFL Routine 04/03/2021 12:01 PM EDT from Last 3 Months or Most Recently Relevant to Health Maintenance Results * (ABNORMAL) Albumin, Random Urine W/Creatinine (07/31/2024 10:23 AM EST) Creatinine, Urine 163.96 mg/dL [facility] Microalbumin Urine 220.0 mg/L H [facility] Microalbum Creatinine Ratio Ur 134.1(H) <30 ug/mg cr [facility] Comment:Albumin/Creatinine R atio Reference Ranges: Normal: < 30 ug/mg creatinine Microalbuminuria: 30 - 300 ug/mg creatinineClinical Albuminuria: > 300 ug/mg creatinine Urine (Urine, Random) 07/31/2024 10:23 AM EST 07/31/2024 11:34 AM EST us Nola ROGERS LAB URINE ORDERABLES Final Resul t [facility] [address] [place] [phone] * Lipid Panel, Standard (07/31/2024 10:23 AM EST) Triglycerides 60 <150 mg/dL [facility] Comment:Desirable Triglyceri de: less than 150 mg/dLBorderline High Triglyceride 150-199 mg/dLHigh Triglyceride: 200-499 mg/dLVery High Triglyceride: greater than or equal to 5OO mg/dL Cholesterol 143 <200 mg/dL [facility] Comment:Desirable Cholestero l: less than 200 mg/dLBorderline High Cholesterol: 200-239 mg/dLHigh Cholesterol: greater than 239 mg/dL LDL Cholesterol Calculated 78 <100 mg/dL [facility] Comment:Desirable LDL: less than 100 mg/dLNear Optimal/Above Optimal LDL: 110- 129 mg/dLBorderline High LDL: 130-159 mg/dLHigh LDL: 160-189 mg/dLVery High LDL: greater than or equal to 190 mg/dL HDL Cholesterol 53 >40 mg/dL [facility] Comment:Desirable HDL: great er than 40 mg/dL Note: This HDL assay may give artificially low results in patients with liver disease. Blood Venous blood specimen / Unknown 07/31/2024 10:23 AM EST 07/31/2024 11:45 AM EST us Nola Yadav ANP LAB BLOOD ORDERABLES Final Resul t [facility] [address] [place] [phone] * (ABNORMAL) POCT HGB A1C (07/31/2024 9:37 AM EST) Hemoglobin A1C 6.3(A) 4.0 - 6.0 % QC Media Lot # [id number] Lot# Expiration Date [id number] Blood 07/31/2024 9:37 AM EST us Nola Yadav ANP POINT OF CARE TEST ENTER/EDIT OR DERABLES Final Result * (ABNORMAL) Hm Colonoscopy (09/23/2021) Colonoscopy Abnormal(A ) Normal 09/23/2021 Historical Provider MD HEALTH MAINTENANCE Final Result * HEPATITIS C AB W/REFL TO HCV RNA, QN, PCR (04/03/2021 12:01 PM EDT) HEPATITIS C ANTIBODY NON-REACT TRAVON NON-REACT TRAVON [facility] INDEX 0.02 <1.00 [facility] Comment: ?? HCV antibody was non-reactive. There is no laboratory ?? evidence of HCV infection. ?? In most cases, no further action is required. However, if recent HCV exposure is suspected, a test for HCV RNA (test code 14439) is suggested. ?? For additional information please refer to http://Modanisa/faq/MGX02b6 (This link is being provided for informational/ educational purposes only.) ?? 04/03/2021 12:0 1 PM EDT us Nola Yadav ANP HISTORICAL/NON ORDERABLE LABS Fi nal Result [facility] [address] * HIV 1/2 ANTIGEN/ANTIBODY,FOURTH GENERATION W/RFL (04/03/2021 12:01 PM EDT) HIV-1/2 ANTIGEN AND ANTIBODIES, 4TH GENERATION W/ REFLEX NON-REACT TRAVON NON-REACT TRAVON [facility] Comment: HIV-1 antigen and HIV-1/HIV-2 antibodies were not detected. There is no laboratory evidence of HIV infection. ?? PLEASE NOTE: This information has been disclosed to you from records whose confidentiality may be protected by state law. ??If your state requires such protection, then the state law prohibits you from making any further disclosure of the information without the specific written consent of the person to whom it pertains, or as otherwise permitted by law. A general authorization for the release of medical or other information is NOT sufficient for this purpose. ? For additional information please refer to http://education.Kalido.[employer]/faq/JTJ893 (This link is being provided for informational/ educational purposes only.) ? The performance of this assay has not been clinically validated in patients less than 2 years old. ?? 04/03/2021 12:0 1 PM EDT us Nola ROGERS LAB BLOOD ORDERABLES Final Resul t [facility] [address] from Last 3 Months or Most Recently Relevant to Health Maintenance [place] [address] [address] [place] [address] C3 HSN FULL DENTAL-[facility] MEDICAID STAND ADULT Care Teams Boom Stick Man Relationship Specialty Start Date End Date Nola Yadav ANP [address] [place] [phone] PCP - General Family Medicine 04/03/21
[2024-12-27 13:01] LABS: Creatinine Urine 158.59 mg/dL; Microalbum/Creatinine Ratio Ur 158.9 ug/mg cr (<30)
== END 2024-12-27 08:23 | disposition home or self-care (01) ==
LOC: HO.HHCL 08:22
PROVIDERS: Visit Provider Nurse Practitioner Primary Care
DX: R80.9 Proteinuria, unspecified (principal)
CPT/HCPCS: 82043; 82570

== ENCOUNTER 2025-01-02 13:36 | Outpatient (AMB) | payer MEDICAID, SELFPAY ==
--- OUTSIDE RECORDS SUMMARY | 2025-01-02 13:43 | XMS_ITS | Clinical Summary ---
Author Organization [employer] Address [address] [facility] [address] [place] [address] Care Team Providers Care Well Services Operator Name Role Phone Nola Yadav Primary Care Provider [phone] Allergies No known active allergies Medications docusate [...] Description 12/06/2024 9:00 AM EDT Office Visit [facility] OPTOMETRY [address] [place] [address] Mónica Leblanc, OD Type 2 diabetes mellitus without ophthalmic manifestations (CMS/[facility]) (Primary Dx); Subjective visual disturbance; Combined form of age-related cataract, both eyes; Hyperopia of both eyes with astigmatism and presbyopia 12/06/2024 Travel 11/27/[address] [facility] MEDICINE [address] [place] [address] Nola Yadav ANP February recall 11/23/[address] [facility] MEDICINE [address] [place] [phone] Nola Yadav ANP cancel appointment on 01/28/2025 11/21/[address] [facility] MEDICINE [address] [place] [address] Nola Yadav ANP 11/20/[address] [facility] MEDICINE [address] [place] [address] Nola Yadav ANP Albuminuria (Primary Dx) 11/02/2024 Population Health Risk Score [facility] () Department [address] [place] [phone] Provider, Population Health Generic 10/23/[address] [facility] MEDICINE [address] [place] [address] Nola Yadav ANP January Recall from Last 3 Months Immunizations Immunization Administration Dates Next Due Pfizer Covid-19 Vaccine [...] Description 02/19/2025 2:00 PM EDT Office Visit [facility] MEDICINE [address] [place] [address] Nola Yadva ANP [address] [place] [address] 02/27/2025 9:00 AM EDT Office Visit [facility] ADULT DENTAL [address] [place] [address] Ingrid Odonnell [address] [place] [address] Health Maintenance Due Date Last Done Comments [...] 07/31/2025 07/31/2024 Depression Screening 07/31/2025 07/31/2024, 07/31/20 Lipid Panel 07/31/2025 07/31/2024, 01/20, 03/15/2022, Additional history exists Dental X-Ray: Bitewings 08/21/2025 08/20/20 24, 06/22/2023, 01/08/2022, Additional history exists Tobacco Screening 12/06/2025 12/06/2024 Diabetes: Urine Protein Screening 12/27/2025 12/27/2024, 07/31/2024, 02/02/2024, Additional history exists Eye Exam 12/06/2026 12/06/2024, 11/20, 12/06/2024, Additional [...] patient's age to complete this topic Meningococcal B Vaccine Aged Out No l onger eligible based on patient's age to complete [...] Procedure Name Priority Date/Time Associated Diagnosis Comments ALBUMIN, RANDOM URINE W/CREATININE Routine 12/27/2024 8:23 AM EDT Albuminuria PROPHYLAXIS - ADULT Routine 08/20/2024 2 :00 PM EST Periodontal disease Dental calculus INTRAORAL - COMPLETE SERIES OF RADIOGRAPHIC IMAGES Routine 08/20/2024 2:00 PM EST Periodontal disease Missing teeth, acquired Generalized gingival recession Dental calculus PERIODIC ORAL EVALUATION - ESTABLISHED PATIENT Routine 08/20/2024 2:00 PM EST LIPID PANEL, STANDARD Routine 07/31/2024 10:23 AM [...] Results * (ABNORMAL) Albumin, Random Urine W/Creatinine (12/27/2024 8:23 AM EDT) Creatinine, Urine 158.59 mg/dL [facility] Microalbumin Urine 252.0 mg/L [facility] Microalbum Creatinine Ratio Ur 158.9(H) <30 ug/mg cr [facility] Comment:Albumin/Creatinine R atio Reference Ranges: Normal: < 30 ug/mg creatinine Microalbuminuria: 30 - 300 ug/mg creatinineClinical Albuminuria: > 300 ug/mg creatinine Urine (Urine, Random) 12/27/2024 8:23 AM EDT 12/27/2024 11:40 AM EDT us Nola ROGERS LAB URINE ORDERABLES Final Resul t [facility] [address] [place] [phone] * Lipid Panel, Standard (07/31/2024 10:23 AM EST) Triglycerides 60 <150 mg/dL [facility] Comment:Desirable Triglyceri de: less than 150 mg/dLBorderline High Triglyceride 150-199 mg/dLHigh Triglyceride: 200-499 mg/dLVery High Triglyceride: greater than or equal to 5OO mg/dL Cholesterol 143 <200 mg/dL [facility] Comment:Desirable Cholestero l: less than 200 mg/dLBorderline High Cholesterol: 200-239 mg/dLHigh Cholesterol: greater than 239 mg/dL LDL Cholesterol Calculated 78 <100 mg/dL [facility] Comment:Desirable LDL: less than 100 mg/dLNear Optimal/Above Optimal LDL: 110- 129 mg/dLBorderline High LDL: 130-159 mg/dLHigh LDL: 160-189 mg/dLVery High LDL: greater than or equal to 190 mg/dL HDL Cholesterol 53 >40 mg/dL [facility] Comment:Desirable HDL: great er than 40 mg/dL Note: This HDL assay may give artificially low results in patients with liver disease. Blood Venous blood specimen / Unknown 07/31/2024 10:23 AM EST 07/31/2024 11:45 AM EST us Nola Yadav ANP LAB BLOOD ORDERABLES Final Resul t [facility] [address] [place] [phone] * (ABNORMAL) POCT HGB A1C (07/31/2024 9:37 AM EST) Hemoglobin A1C 6.3(A) 4.0 - 6.0 % QC Media Lot # [id number] Lot# Expiration Date [id number] Blood 07/31/2024 9:37 AM EST us Nola Yadav ANP POINT OF CARE TEST ENTER/EDIT OR DERABLES Final Result * (ABNORMAL) Hm Colonoscopy (09/23/2021) Colonoscopy Abnormal(A ) Normal 09/23/2021 Historical Provider MD HEALTH MAINTENANCE Final Result * HEPATITIS C AB W/REFL TO HCV RNA, QN, PCR (04/03/2021 12:01 PM EDT) HEPATITIS C ANTIBODY NON-REACT TRAVON NON-REACT TRAVON [facility] INDEX 0.02 <1.00 [facility] Comment: ?? HCV antibody was non-reactive. There is no laboratory ?? evidence of HCV infection. ?? In most cases, no further action is required. However, if recent HCV exposure is suspected, a test for HCV RNA (test code 58104) is suggested. ?? For additional information please refer to http://OnAir Player.RocketBank/faq/BFC41v6 (This link is being provided for informational/ educational purposes only.) ?? 04/03/2021 12:0 1 PM EDT us Nola Yadav ANP HISTORICAL/NON ORDERABLE LABS Fi nal Result [facility] [address] * HIV 1/2 ANTIGEN/ANTIBODY,FOURTH GENERATION W/RFL (04/03/2021 12:01 PM EDT) HIV-1/2 ANTIGEN AND ANTIBODIES, 4TH GENERATION W/ REFLEX NON-REACT TRAVON NON-REACT TRAVON [facility] Comment: HIV-1 antigen and HIV-1/HIV-2 [...] ? For additional information please refer to http://education.[employer] Access [employer]com.Mpax/faq/LBP087 (This link is being provided for informational/ educational purposes only.) ? The performance of this assay has not been clinically validated in patients less than 2 years old. ?? 04/03/2021 12:0 1 PM EDT [facility] LAB BLOOD ORDERABLES Final Resul t [facility] [address] from Last 3 Months or Most Recently Relevant to Health Maintenance [place] [address] [place] [address] C3 HSN FULL DENTAL-[facility] MEDICAID STAND ADULT Care Teams Well Services Operator Relationship Specialty Start Date End Date Nola Yadav ANP [address] [place] [phone] PCP - General Family Medicine 04/03/21
--- OUTSIDE RECORDS SUMMARY | 2025-01-02 13:43 | XMS_ITS | Encounter Summary ---
Author Organization [employer] Address [address] [facility] 7[address] [place] [address] Care Team Providers Care Community Services Coordinator Name Role Phone Nola Yadav Primary Care Provider [phone] Encounter Details Date Type Department Care Team (Late st Contact Info) Description 07/28/2023 Orders Only [facility] MED[facility] [address] [place], [place] [phone] Jacob Torrez, PharmD [address] [place], [place] [phone] Social History Tobacco Use Types Packs/Day Years [...] the past 12 months, has t he [employer], gas, oil or water [employer] threatened to shut off services in your [...] Description 02/19/2025 2:00 PM EDT Office Visit [facility] MEDIC[facility] [address] [place] [address] Nola Yadav ANP [address] [place] [address] 02/27/2025 9:00 AM EDT Office Visit [facility] ADULT DENTAL [address] [place] [address] Ingrid Odonnell [address] [place] [address] documented as of this encounter Visit Diagnoses Not on filedocumented in this encounter Additional Health Concerns Assessment Noted Time PHQ-9 Depression Total Score: 0 07/26/20 23 2:54 PM EST documented as of this encounter Care Teams Community Services Coordinator Relationship Specialty Start Date End Date Nola Yadav ANP [address] [place] [phone] PCP - General Family Medicine 04/03/21 documented as of this encounter
--- OUTSIDE RECORDS SUMMARY | 2025-01-02 13:43 | XMS_ITS | Encounter Summary ---
Author Organization [facility] Address [address] [place] [address] Care Team Providers Care Chief Operating Engineer Name Role Phone Nola Yadav Primary Care Provider [phone] Encounter Details Date Type Department Care Team (Latest Contact Info) Description 10/13/2020 Abstract [facility] CONVERSIONS Dental, Provider, DDS Social History Tobacco [...] Description 02/19/2025 2:00 PM EDT Office Visit [facility] MEDICINE [address] [place] [address] Nola Yadav ANP [address] [place] [address] 02/27/2025 9:00 AM EDT Office Visit [facility] ADULT DENTAL [address] [place] [address] Belle, Ingrid [address] [place] [address] documented as of this encounter Visit Diagnoses Not on filedocumented in this encounter Care Teams Chief Operating Engineer Relationship Specialty Start Date End Date Nola Yadav ANP [address] [place] [id number] PCP - General Family Medicine 04/03/21 documented as of this encounter
--- OUTSIDE RECORDS SUMMARY | 2025-01-02 13:43 | XMS_ITS | Encounter Summary ---
Author Organization [facility] Address [address] [place] [address] Care Team Providers Care Department Editor Name Role Phone Nola Yadav Primary Care Provider [phone] Encounter Details Date Type Department Care Team (Latest Contact Info) Description 01/08/2022 Abstract [facility] CONVERSIONS Dental, Provider, DDS Social History Tobacco [...] Description 02/19/2025 2:00 PM EDT Office Visit [facility] MEDICINE [address] [place] [address] Nola Yadav ANP [address] [place] [address] 02/27/2025 9:00 AM EDT Office Visit [facility] ADULT DENTAL [address] [place] [address] Belle, Ingrid [address] [place] [address] documented as of this encounter Visit Diagnoses Not on filedocumented in this encounter Care Teams Department Editor Relationship Specialty Start Date End Date Nola Yadav ANP [address] [place] [id number] PCP - General Family Medicine 04/03/21 documented as of this encounter
--- NOTE | 2025-01-02 13:50 | MHC.OFFVIS ---
Intake Visit Reasons: 6m/PSA Intake Note: Patient is present for 6M/PSA Urology Medication:TERAZOSIN,TADALAFIL Antibiotic Allergy:NONE Blood Thinner:ASPIRIN Pediatric Anesthesiologist Required: No Allergies lisinopril Allergy (Verified 01/02/25 13:51) COUGH HPI Comments Details: Jered is a pleasant male. He is a patient of Dr. Yadav. He seen for the following urologic conditions - lower urinary tract symptoms - erectile dysfunction Six-month follow-up High-dose tadalafil protocol with 10 mg daily and up to 40 mg on demand Repeat PSA and testosterone in six-month Erectile dysfunction in setting of diabetes Progressive Concurrent diagnoses include hypertension, diabetes Good response to high-dose tadalafil protocol Lower urinary tract symptoms Initial symptoms of urinary hesitancy and weakness of stream Ongoing for the past 2-3 years in progressive Was associated with episode of hematuria in March 2021 Cystoscopy 02/10 large bilobar prostate Therapy terazosin and finasteride PSA 04/11 7.8, 02/10 6.1, 03/13 7.3 18%, 04/14 5.1 21%, 08/14 7.5 GreenLight laser 09/14 - chronic inflammation on tissue diagnosis Prostate biopsy 08/12 NAD 110gm on US [facility] Medical History (Updated 07/04/24 @ 14:19 by Mati Mistry MD) Personal history of tobacco use Erectile dysfunction Tubular adenoma Arthritis GERD (gastroesophageal reflux disease) High cholesterol Diabetes Hypertension Surgical History (Updated 08/20/24 @ 14:38 by Shraddha Roy PA-C) Hx laparoscopic cholecystectomy Hx of prostate biopsy Hx of colonoscopy Hx of foot surgery Hx of foot surgery Family History Father No problems noted. Social History Household Members: Significant Other Housing: Apartment Do you presently have visiting nurse or other home services: No Alcohol intake: never Patient Tobacco Use Status: Former Tobacco user Review of Systems Const Denies chills and Denies fever(s) Card Reports no additional complaints and Denies syncope Resp Denies cough GI Denies abdominal pain and Denies heartburn Reports as per HPI and Denies change in libido Neuro Denies syncope Psych Denies change in libido Endo Denies change in libido Physical Exam Const General: cooperative, healthy appearing, comfortable and no acute distress Orientation/consciousness: patient oriented x3 HEENT Face and sinus: Yes normal facial exam Mouth: moist mucous membranes Neck Neck: Yes normal visual inspection, Yes full ROM and Yes trachea midline Chest Chest palpation & inspection: normal inspection of the chest Resp Effort & Inspection: normal respiratory effort, able to speak in complete sentences and no respiratory distress GI Inspection: Yes normal to inspection Back/Spine/Pelvis Cervical Spine: normal cervical lordosis Thoracic/Lumbar Spine: thoracic and lumbar spine normal to inspection Skin General skin exam: no rashes or lesions noted Neuro General: patient oriented x3, gait normal, tone normal and moves all extremities Extrem General: Yes normal to inspection and Yes capillary refill normal Results AMB Urinalysis, Automated UA Leukoctes 0 Theresa/uL Last Edit by FIDEL Jessica on 01/02/25 14:00 UA Nitrite Negative Last Edit by FIDEL Jessica on 01/02/25 14:00 UA Urobilinogen 3.5 mg/dL Last Edit by FIDEL Jessica on 01/02/25 14:00 UA Protein 3 mg/dL Last Edit by FIDEL Jessica on 01/02/25 14:00 UA pH 6.0 Last Edit by FIDEL Jessica on 01/02/25 14:00 UA Blood 0 Segun/uL Last Edit by FIDEL Jessica on 01/02/25 14:00 UA Specific [place] 1.030 Last Edit by FIDEL Jessica on 01/02/25 14:00 UA Ketone Negative Last Edit by FIDEL Jessica on 01/02/25 14:00 UA Bilirubin 0 mg/dL Last Edit by FIDEL Jessica on 01/02/25 14:00 UA Glucose 0 mg/dL Last Edit by FIDEL Jessica on 01/02/25 14:00 Results Reviewed Results Reviewed: Laboratory Last Values Urine pH (Auto) 6.0 01/02/25 14:00 Specific [place] (Auto) 1.030 01/02/25 14:00 Urine Protein (Auto) 3 mg/dL 01/02/25 14:00 Glucose (UA)(Auto) 0 mg/dL 01/02/25 14:00 Urine Ketones (Auto) Negative 01/02/25 14:00 Urine Blood (Auto) 0 Segun/uL 01/02/25 14:00 Urine Nitrite (Auto) Negative 01/02/25 14:00 Urine Bilirubin (Auto) 0 mg/dL 01/02/25 14:00 Urine Urobilinogen (Auto) 3.5 mg/dL 01/02/25 14:00 Leukocyte Esterase (Auto) 0 Theresa/uL 01/02/25 14:00 Assessment & Plan Assessment & Plan (1) Weak urinary stream: Code(s): R39.12 - Poor urinary stream Category: Medical (2) Erectile dysfunction associated with type 2 diabetes mellitus: Code(s): E11.69 - Type 2 diabetes mellitus with other specified complication; N52.1 - Erectile dysfunction due to diseases classified elsewhere Category: Medical (3) Bladder outlet obstruction: Code(s): N32.0 - Bladder-neck obstruction Category: Medical Plan Six-month follow-up PSA with testosterone Refill medications Orders: Orders AMB Urinalysis Automated Today Z13.9 - Encounter for screening, unspecified PSA,Total (Free>4and<10) 6 Months N32.0 - Bladder-neck obstruction Testosterone, Total 6 Months E11.69 - Type 2 diabetes mellitus with other specified complication, N52.1 - Erectile dysfunction due to diseases classified elsewhere Patient Instructions: This note is constructed using voice recognition software. While every effort has been made to ensure accuracy field sales consultant errors may have been included. Imaging studies, laboratory and physical exam results were discussed and reviewed in detail. No major barriers to patient understanding were identified. An opportunity to ask questions regarding the treatment plan was provided. All questions were answered. The patient expressed understanding and agreement with the above treatment plan. The patient is aware they should contact our office by phone for worsening of their current condition or the appearance of new urologic symptoms. Compliance is encouraged with any medications and followup testing that is ordered. It is a privilege to participate in the urologic care of your patient. If you have any questions or concerns regarding treatment for the above conditions, or other urologic issues, please do not hesitate to contact me. The office telephone contact is [phone]. Sincerely, Dr Mati Mistry MD, [facility] - Urology Compassionate Specialist Care for the Genitourinary System Coding Level of Care Code Est Pt Level 3 (17526) Complex EM visit Add On G2211 Diagnoses Weak urinary stream R39.12 Erectile dysfunction associated with type 2 diabetes mellitus E11.69; N52.1 Bladder outlet obstruction N32.0
== END 2025-01-02 14:28 | disposition home or self-care (01) ==
LOC: HO.HUSH 13:37
PROVIDERS: PCP Nurse Practitioner Primary Care; Visit Provider Urology
DX: R39.12 Poor urinary stream (principal); E11.69 Type 2 diabetes mellitus with other specified complication; N52.1 Erectile dysfunction due to diseases classified elsewhere; N32.0 Bladder-neck obstruction; Z13.9 Encounter for screening, unspecified
CPT/HCPCS: 99213

== ENCOUNTER → 2025-01-02 13:36 | Outpatient (BNVA) | payer MEDICAID, SELFPAY | PROVIDERS: PCP Nurse Practitioner Primary Care; Visit Provider Urology | DX: R39.12 Poor urinary stream (principal); N32.0 Bladder-neck obstruction; E11.69 Type 2 diabetes mellitus with other specified complication; N52.1 Erectile dysfunction due to diseases classified elsewhere | CPT/HCPCS: 81003; 99212 ==

== ENCOUNTER 2025-06-25 10:38 | Outpatient (REF) | payer MEDICAID, SELFPAY ==
[2025-06-25 12:55] LABS: PSA,Total (Free>4and<10) 12.64 ng/mL (0.00-4.00)
== END 2025-06-25 10:39 | disposition home or self-care (01) ==
LOC: HO.HHCL 10:38
PROVIDERS: PCP Nurse Practitioner Primary Care; Visit Provider Urology
DX: N32.0 Bladder-neck obstruction (principal); E11.69 Type 2 diabetes mellitus with other specified complication; N52.1 Erectile dysfunction due to diseases classified elsewhere
CPT/HCPCS: 36415; 84153; 84403

== ENCOUNTER 2025-07-09 09:13 | Outpatient (AMB) | payer MEDICAID, SELFPAY ==
--- NOTE | 2025-07-09 09:10 | MHC.OFFVIS ---
Intake Visit Reasons: 6m/PSA/Testo Intake Note: Patient is present for 6M/PSA Urology Medication:TERAZOSIN,TADALAFIL Antibiotic Allergy:NONE Blood Thinner:ASPIRIN Labs done :06/25/25 PSA Total 12.64, Total Testosterone 308 Rn Bone Marrow Transplant Required: No Accompanied by: Self / Same As Patient Allergies lisinopril Allergy (Verified 07/09/25 09:11) COUGH HPI Comments Details: Jered is a pleasant male. He is a patient of Dr. Yadav. He seen for the following urologic conditions - lower urinary tract symptoms - erectile dysfunction Six-month follow-up High-dose tadalafil protocol with 10 mg daily and up to 40 mg on demand PSA continues to rise 07/16 12.6 Testosterone borderline low 06/15 300 Recommend prostate biopsy Erectile dysfunction in setting of diabetes Progressive Concurrent diagnoses include hypertension, diabetes Good response to high-dose tadalafil protocol Lower urinary tract symptoms Initial symptoms of urinary hesitancy and weakness of stream Ongoing for the past 2-3 years in progressive Was associated with episode of hematuria in March 2021 Cystoscopy 02/10 large bilobar prostate Therapy terazosin and finasteride PSA 04/11 7.8, 02/10 6.1, 03/13 7.3 18%, 04/14 5.1 21%, 08/14 7.5 GreenLight laser 09/14 - chronic inflammation on tissue diagnosis Prostate biopsy 08/12 NAD 110gm on US [facility] Medical History (Updated 07/04/24 @ 14:19 by Mati Mistry MD) Personal history of tobacco use Erectile dysfunction Tubular adenoma Arthritis GERD (gastroesophageal reflux disease) High cholesterol Diabetes Hypertension Surgical History (Updated 08/20/24 @ 14:38 by Shraddha Roy PA-C) Hx laparoscopic cholecystectomy Hx of prostate biopsy Hx of colonoscopy Hx of foot surgery Hx of foot surgery Family History Father No problems noted. Social History Household Members: Significant Other Housing: Apartment Do you presently have visiting nurse or other home services: No Alcohol intake: never Patient Tobacco Use Status: Former Tobacco user Review of Systems Const Denies chills and Denies fever(s) Card Reports no additional complaints and Denies syncope Resp Denies cough GI Denies abdominal pain and Denies heartburn Reports as per HPI and Denies change in libido Neuro Denies syncope Psych Denies change in libido Endo Denies change in libido Physical Exam Const General: cooperative, healthy appearing, comfortable and no acute distress Orientation/consciousness: patient oriented x3 HEENT Face and sinus: Yes normal facial exam Mouth: moist mucous membranes Neck Neck: Yes normal visual inspection, Yes full ROM and Yes trachea midline Chest Chest palpation & inspection: normal inspection of the chest Resp Effort & Inspection: normal respiratory effort, able to speak in complete sentences and no respiratory distress GI Inspection: Yes normal to inspection Back/Spine/Pelvis Cervical Spine: normal cervical lordosis Thoracic/Lumbar Spine: thoracic and lumbar spine normal to inspection Skin General skin exam: no rashes or lesions noted Neuro General: patient oriented x3, gait normal, tone normal and moves all extremities Extrem General: Yes normal to inspection and Yes capillary refill normal Office Procedures Post Void Residual Post Residual Void Post Void Residual (PVR): 62 [id number]-Uicq Void Residual by ultrasound Results AMB Urinalysis, Automated UA Leukoctes 0 Theresa/uL Last Edit by Kristy Cox [facility] on 07/09/25 09:35 UA Nitrite Negative Last Edit by Kristy Cox [facility] on 07/09/25 09:35 UA Urobilinogen 0.2 mg/dL Last Edit by Kristy Cox [facility] on 07/09/25 09:35 UA Protein 30 mg/dL Last Edit by Kristy Cox [facility] on 07/09/25 09:35 UA pH 6.0 Last Edit by Kristy Cox [facility] on 07/09/25 09:35 UA Blood 0 Segun/uL Last Edit by Kristy Cox [facility] on 07/09/25 09:35 UA Specific [place] 1.020 Last Edit by Kristy Cox [facility] on 07/09/25 09:35 UA Ketone Negative Last Edit by Kristy Cox [facility] on 07/09/25 09:35 UA Bilirubin 0 mg/dL Last Edit by Kristy Cox [facility] on 07/09/25 09:35 UA Glucose 0 mg/dL Last Edit by Kristy Cox [facility] on 07/09/25 09:35 Results Reviewed Results Reviewed: Laboratory Last Values Urine pH (Auto) 6.0 07/09/25 09:34 Specific [place] (Auto) 1.020 07/09/25 09:34 Urine Protein (Auto) 30 mg/dL 07/09/25 09:34 Glucose (UA)(Auto) 0 mg/dL 07/09/25 09:34 Urine Ketones (Auto) Negative 07/09/25 09:34 Urine Blood (Auto) 0 Segun/uL 07/09/25 09:34 Urine Nitrite (Auto) Negative 07/09/25 09:34 Urine Bilirubin (Auto) 0 mg/dL 07/09/25 09:34 Urine Urobilinogen (Auto) 0.2 mg/dL 07/09/25 09:34 Leukocyte Esterase (Auto) 0 Theresa/uL 07/09/25 09:34 Assessment & Plan Assessment & Plan (1) Elevated PSA: Code(s): R97.20 - Elevated prostate specific antigen [PSA] Category: Medical (2) Bladder outlet obstruction: Code(s): N32.0 - Bladder-neck obstruction Category: Medical (3) Erectile dysfunction associated with type 2 diabetes mellitus: Code(s): E11.69 - Type 2 diabetes mellitus with other specified complication; N52.1 - Erectile dysfunction due to diseases classified elsewhere Category: Medical Plan Risks and benefits regarding trans rectal ultrasound with prostate biopsy were discussed. Options of continued surveillance, no treatment and biopsy were offered. The risks include but are not limited to, urinary tract infection, sepsis, difficulty urinating, bleeding into the rectum or bladder that requires intervention and transfusion,and failure to diagnose prostate cancer. The patient understands the options and the risks involved. They wish to proceed. Printed information was provided to ensure he remains off anticoagulation for the appropriate length of time. He may require cardiology or PCP clearance. An antibiotic will be administered prior to, and following the procedure Medications: New levofloxacin take 1 tablet day before procedure, 1 tablet day of procedure and 1 tablet day after procedure 500 mg PO DAILY 3 tabs 0RF 3 days R97.20 - Elevated prostate specific antigen [PSA] Patient Instructions: This note is constructed using voice recognition software. While every effort has been made to ensure accuracy x ray service technician errors may have been included. Imaging studies, laboratory and physical exam results were discussed and reviewed in detail. No major barriers to patient understanding were identified. An opportunity to ask questions regarding the treatment plan was provided. All questions were answered. The patient expressed understanding and agreement with the above treatment plan. The patient is aware they should contact our office by phone for worsening of their current condition or the appearance of new urologic symptoms. Compliance is encouraged with any medications and followup testing that is ordered. It is a privilege to participate in the urologic care of your patient. If you have any questions or concerns regarding treatment for the above conditions, or other urologic issues, please do not hesitate to contact me. The office telephone contact is [phone]. Sincerely, Dr Mati Mistry MD, [facility] - Urology Compassionate Specialist Care for the Genitourinary System Coding Level of Care Code Est Pt Level 4 (15699) Diagnoses Elevated PSA R97.20 Bladder outlet obstruction N32.0 Erectile dysfunction associated with type 2 diabetes mellitus E11.69; N52.1 CPT Codes Post Residual Void - PVR CPT Code: 61621-[id number] Void Residual by ultrasound ([id number])
== END 2025-07-09 09:59 | disposition home or self-care (01) ==
LOC: HO.HUSH 09:16
PROVIDERS: PCP Nurse Practitioner Primary Care; Visit Provider Urology
DX: R97.20 Elevated prostate specific antigen [PSA] (principal); N32.0 Bladder-neck obstruction; E11.69 Type 2 diabetes mellitus with other specified complication; N52.1 Erectile dysfunction due to diseases classified elsewhere
CPT/HCPCS: 99214

== ENCOUNTER → 2025-07-09 09:13 | Outpatient (BNVA) | payer MEDICAID, SELFPAY | PROVIDERS: PCP Nurse Practitioner Primary Care; Visit Provider Urology | DX: E11.69 Type 2 diabetes mellitus with other specified complication (principal); N52.1 Erectile dysfunction due to diseases classified elsewhere; R97.20 Elevated prostate specific antigen [PSA]; N32.0 Bladder-neck obstruction | CPT/HCPCS: 51798; 99212 ==

== ENCOUNTER 2025-07-30 07:23 | Outpatient (REF) | payer MEDICAID, SELFPAY ==
--- OUTSIDE RECORDS SUMMARY | 2025-07-30 07:26 | XMS_ITS | Clinical Summary ---
Author Organization [employer] Address [address] [facility] 7t [place] [address] Care Team Providers Care Fur Feeder Name Role Phone Nola Yadav SUE Primary Care Provider [phone] Mati Mistry MD Unavailable [phone] Allergies No known active allergies Medications docusate sodium (Colace) 100 MG capsule TAKE 1 CAPSULE BY MOUTH EVERYDAY AT BEDTIME 08/12/20 22 Active finasteride (Proscar) 5 MG tablet TAKE 1 TABLET BY MOUTH EVERY DAY FOR 90 DAYS 08/12/20 22 Active terazosin (Hytrin) 5 MG capsule TAKE 1 CAPSULE BY MOUTH EVERYDAY AT BEDTIME 09/08/19 23 Active Blood Glucose Monitoring Suppl (FreeStyle glucose monitoring) kitIndications:Ty pe 2 diabetes mellitus with other specified complication, without long-term current use of insulin (HCC) Use BID. Dx type 2 diabetes 1 each 09/28/19 23 Active FreeStyle lancetsIndication s:Type 2 diabetes mellitus with other specified complication, without long-term current use of insulin (HCC) Use bid, dx type 2 diabetes 60 each 11 09/28/19 23 Active tadalafil (Cialis) 20 MG tablet TAKE ONE TABLET BY MOUTH EVERY DAY NEEDED FOR SEXUAL ACTIVITY 05/20/20 23 Active Blood Pressure kit 1 each 1 (one) time per week. 1 kit 08/02/20 23 Active FREESTYLE LITE test stripIndications: Type 2 diabetes mellitus with other specified complication, without long-term current use of insulin (HCC) USE INSTRUCTED TO CHECK BLOOD SUGAR 2-3X PER DAY OR MORE NEEDED 100 strip 11 09/14/19 24 Active Aspirin Low Dose 81 MG chewable tabletIndications :Type 2 diabetes mellitus with other specified complication, without long-term current use of insulin (HCC) CHEW 1 TABLET (81 MG) ONCE DAILY. 90 tablet 3 07/16/20 Active famotidine (Pepcid) 20 MG tabletIndications :Epigastric pain Take 1 tablet (20 mg) by mouth at bedtime. 90 tablet 06/25/20 Active losartan (Cozaar) 100 MG tabletIndications :Hypertension associated with diabetes (HCC) Take 1 tablet (100 mg) by mouth Once per day. 90 tablet 3 06/25/20 25 Active metFORMIN XR (Glucophage-XR) 500 MG 24 hr tabletIndications :Type 2 diabetes mellitus with hyperlipidemia (HCC),Hypertensio n associated with diabetes (HCC) TAKE 1 TABLET BY MOUTH TWICE A DAY WITH MEALS 180 tablet 1 06/25/20 Active rosuvastatin (Crestor) 10 MG tabletIndications :Type 2 diabetes mellitus with hyperlipidemia (HCC) Take 1 tablet (10 mg) by mouth in the morning. 90 tablet 3 06/25/20 25 2025 Active Psyllium (Metamucil 4 in 1 Fiber) 55.6 % powderIndications :Chronic constipation 1 tsp once daily in 8oz water 660 g 1 06/25/20 Active Senna-Time 8.6 MG tabletIndications :Constipation, unspecified constipation type TAKE 2 TABLETS (17.2 MG) BY MOUTH ONCE DAILY NEEDED FOR CONSTIPATION. 180 tablet 07/10/20 Active sennosides (Senna-Time) 8.6 MG tabletIndications :Constipation, unspecified constipation type Take 2 tablets (17.2 mg) by mouth Once daily as needed for constipation. 180 tablet 02/20/20 25 2024 Discontinued Active Problems Problem Noted Date Diagnosed Date Ocular migraine 06/25/2025 Chronic constipation 06/25/2025 Essential hypertension 06/25/2025 Advanced periodontitis 02/27/2025 Excessive attrition of teeth 02/27/2025 Excessive attrition of teeth, limited to enamel 08/20/2024 Acute periodontal abscess 06/22/2023 Periodontal disease 06/22/2023 Missing teeth, acquired 06/22/2023 Generalized gingival recession 06/22/2023 Dental calculus 06/22/2023 Class 2 obesity 09/28/2022 HLD (hyperlipidemia) 09/28/2022 Painful orthopaedic hardware 09/28/2022 Benign prostatic hyperplasia 01/07/2022 Hypertension associated with diabetes 07/13/2021 Type 2 diabetes mellitus with hyperlipidemia Overview (01/31/2024): Lab Results Component Value Date HGBA1C 6.3 (A) 01/31/2024 HGBA1C 6.2 (A) 07/26/2023 HGBA1C 6.3 (H) 09/28/2022 A1c at goal </= 7.0 Very stable. Cont metformin XR 500mg BID On ARB, statin, ASA Foot exam normal 01/31/24 Eye exam utd IZ UTD Resolved Problems Problem Noted Date Diagnosed Date Resolved Date Epilepsy ([facility]) 09/28/2022 Overview (09/28/2022): as a child stopped age 11 Encounters Date Type Department Care Team Description 07/10/[address] [address] Nola Yadav ANP Constipation, unspecified constipation type 07/08/[address] [address] Nola Yadav ANP february recall 07/01/2025 Results Follow-Up [address] [address] Nola Yadav ANP PSA, Total With Reflex to PSA, Free, Testosterone, Total, males (Adult), IA 06/25/2025 9:30 AM EST Office Visit [address] [address] Nola Yadav ANP Type 2 diabetes mellitus with hyperlipidemia (HCC) (Primary Dx); Vision changes; Ocular migraine; Chest pain, unspecified type; Hypertension associated with diabetes (HCC); Chronic constipation; Essential hypertension; Epigastric pain 06/25/2025 Orders Only GENERIC EXTERNAL DATA DEPARTMENT Provider, Generic External Data 06/25/2025 Travel 06/24/[address] [address] Nola Yadav ANP chart prep 06/18/2025 Patient Outreach [address] [address] Nola Yadav ANP Pre-visit Planning (SDOH screening was completed on 02/12/2025) from Last 3 Months Immunizations Immunization Administration [...] housing situation today? I have kenyatta lan 02/12/[address] you li ve. Do you have problems with any of the following? None of the above 02/12/2025 Food Insecurity Answer Date Recorded Within the past 12 months, y ou worried that your food would run out before you got money to buy more: Never True 02/12/2025 Within the past 12 months,th e food you bought just didn't last and you didn't have enough money to get more: Never True Transportation Answer Date Recorded In the past 12 months, has l ack of transportation kept you from medical appts, meetings, work or from getting things needed for daily living? No 02/12/2025 Utilities Answer Date Recorded In the past 12 months, has t he electric, gas, oil or water company threatened to shut off services in your home? No 02/12/2025 Depression Answer Date Recorded Patient Health Questionnaire-2 Score 2 07/31/2024 Internet Access Answer Date Recorded Internet Access Q1 Yes 02/12/2025 Internet Access Q2 Not on file 02/12/2025 Sex and Gender Information Value Date Recorded Sex Assigned at Male 06/21/2022 10:19 AM EDT Legal Sex Male 10:19 AM EDT Gender Identity Male 06/21/2022 10:19 AM EDT Sexual Orientation Straight 06/21/2022 10 :19 AM EDT Last Filed Vital Signs Vital Sign Reading Time Taken Comments Blood Pressure 136/78 06/25/2025 9:24 AM EST Pulse 62 06/25/2025 9:24 AM EST Temperature 36.7 C (98.1 F) 06/25/2025 9:24 AM EST Respiratory Rate 15 06/25/2025 9:24 AM EST Oxygen Saturation 95% 06/25/2025 9:24 AM EST Inhaled Oxygen Concentration - - Weight 108 kg (238 lb) 06/25/2025 9:24 AM EST Height 172.7 cm (5' 8 ) 06/25/2025 9:24 AM EST Body Mass Index 36.19 06/25/2025 9:24 AM EST Plan of Treatment Upcoming Encounters Date Type Department Care Team (Late st Contact Info) Description 09/10/2025 10:15 AM EST Office Visit [facility] ADULT DENTAL [address] [place] [address] [place], [place] [address] [place] [address] 09/24/2025 9:30 AM EST Office Visit [facility] MEDICINE [address] [place] [address] Nola Yadav, ANP [address] [place] [address] Health Maintenance Due Date Last Done Comments CT Colonography 1966 FIT DNA/Cologuard 1966 FIT 1966 FOBT 1966 Sigmoidoscopy 1966 Hepatitis B Vaccines (1 of 3 - 19+ 3-dose series) 1985 Colonoscopy 09/23/2024 09/23/2021 Colorectal Cancer Screening 09/23/2024 COVID-19 Vaccine ( season) 2025 08/02/2023, 09/28/2022, 09/14/2021, Additional history exists Influenza Vaccine (#1) 2025 Alcohol/Substance Use Screening 07/31/2025 07/31/2024 Depression Screening 07/31/2025 07/31/2024, 12/10/20 24 Lipid Panel 07/31/2025 07/31/2024, 01/20, 03/15/2022, Additional history exists Diabetes: Hemoglobin A1C 08/22/2025 025, 07/31/2024, 01/31/2024, Additional history exists Dental Oral Exam 08/31/2025 02/27/2025, , 06/22/2023, Additional history exists Dental Prophylaxis 08/31/2025 02/27/2025, 1 , 06/22/2023, Additional history exists Diabetes: Urine Protein Screening 12/27/2025 12/27/2024, 12/27/2024, 07/31/2024, Additional history exists SDOH Screening 02/12/2026 02/12/2025 Disability Screening 02/19/2026 02/19/2025 Dental X-Ray: Bitewings 02/28/2026 02/28/20 25, 08/20/2024, 06/22/2023, Additional history exists Diabetes: Foot Exam 06/25/2026 06/25/2025, 06/25/2025, 06/25/2025, Additional history exists Tobacco Screening 06/25/2026 06/25/2025 Eye Exam 12/06/2026 12/06/2024, 11/20, 12/06/2024, Additional [...] on patient's age to complete this topic Goals Goal Patient Goal Type Associated Problems Recent Progress Patient-Stated? Author Help patients manage their type 2 diabetes Care Plan Help patients manage their type 2 diabetes No Nola Yadav ANP Weekly blood pressure task Care Plan Weekly blood pressure task No Nola Yadav ANP Help patients manage their type 2 diabetes Care Plan Help patients manage their type 2 diabetes No Nola Yadav ANP Patient has chronic kidney disease Care Plan Patient has chronic kidney disease No Nola Yadav ANP Weekly blood pressure task Care Plan Weekly blood pressure task No Nola Yadav ANP Patient has chronic kidney disease Care Plan Patient has chronic kidney disease No Nola Yadav ANP Weekly blood pressure task Care Plan Weekly blood pressure task No Ambreen Irvin MA Weekly blood pressure task Care Plan Weekly blood pressure task No Ambreen Irvin MA Patient has chronic kidney disease Care Plan Patient has chronic kidney disease No Ambreen Irvin MA Patient has chronic kidney disease Care Plan Patient has chronic kidney disease No Ambreen Irvin MA Procedures Procedure Name Priority Date/Time Associated Diagnosis Comments AMB REFERRAL TO CARDIOLOGY Urgent 07/05/2025 Type 2 diabetes mellitus with hyperlipidemia (HCC) Chest pain, unspecified type Hypertension associated with diabetes (HCC) Essential hypertension ECG 12-LEAD Routine 06/25/2025 12:19 PM EST Chest pain, unspecified type TESTOSTERONE, TOTAL, MALES (ADULT), IA Routine 06/25/2025 10:40 AM EST PSA, TOTAL WITH REFLEX TO PSA, FREE Routine 06/25/2025 10:40 AM EST POCT GLUCOSE Routine 06/25/2025 9:26 AM EST Type 2 diabetes mellitus with hyperlipidemia (HCC) PROPHYLAXIS - ADULT Routine 02/27/2025 9 :00 AM EDT Advanced periodontitis BITEWINGS - 2 RADIOGRAPHIC IMAGES Routine 02/27/2025 9:00 AM EDT Excessive attrition of teeth Advanced periodontitis Generalized gingival recession Missing teeth, acquired PERIODIC ORAL EVALUATION - ESTABLISHED PATIENT Routine 02/27/2025 9:00 AM EDT POCT GLYCATED HEMOGLOBIN, TOTAL Routine 02/19/2025 2:47 PM EDT Type 2 diabetes mellitus with hyperlipidemia (CMS/HCC) ([facility]) ALBUMIN, RANDOM URINE W/CREATININE Routine 12/27/2024 8:23 AM EDT Albuminuria INTRAORAL - COMPLETE SERIES OF RADIOGRAPHIC IMAGES Routine 08/20/2024 2:00 PM EST Periodontal disease Missing teeth, acquired Generalized gingival recession Dental calculus LIPID PANEL, STANDARD Routine 07/31/2024 10:23 AM EST Type 2 diabetes mellitus with hyperlipidemia (CMS/HCC) ([facility]) HM COLONOSCOPY Routine 09/23/2021 ZZZ HISTORICAL HEPATITIS C AB W/REFL TO HCV RNA, QN, PCR Routine 04/03/2021 12:01 PM EDT HIV 1/2 ANTIGEN/ANTIBODY, FOURTH GENERATION W/RFL Routine 04/03/2021 12:01 PM EDT from Last 3 Months or Most Recently Relevant to Health Maintenance Results * Referral to Cardiology (07/05/2025) us Nola ROGERS OUTPATIENT REFERRAL ORDERABLES F inal Result * ECG 12 lead (06/25/2025 12:19 PM EST) Narrative Nola Yadav ANP - 06/25/2025 12:19 PM EST HR 57, QT/QTc 400/395ms, inverted t-wave V1, no ischemic changes us Nola ROGERS ECG ORDERABLES Final Result * (ABNORMAL) PSA, Total With Reflex to PSA, Free (06/25/2025 10:40 AM EST) PSA,Total (Free>4and<10) 12.64(H ) 0.00 - 4.00 ng/mL [facility] Comment:A Free PSA was not p erformed: The percentage of Free PSA can be used to enhance the differentiation of prostate cancer from benign prostatic disease in subjects whose PSA levels are between 4.0 and 10.0 ng/mL. For subjects whose PSA levels are below 4.0 or above 10.0 ng/mL, the risk of prostate cancer is determined on the basis of the PSA alone. Therefore the % Free PSA is recommended only for those subjects whose PSA levels are between 4.0 and 10.0 ng/mL.PSA methodology: Tai Alinity i ChemiluminescentMicroparticle Immunoassay (CMIA) 06/25/2025 10:4 0 AM EST 06/25/2025 12:13 PM EST us Generic External Data Provider LAB BLOOD ORDERAB LES Final Result [facility] [address] [place] [phone] * Testosterone, Total, males (Adult), IA (06/25/2025 10:40 AM EST) Testosterone, Total 308 250 - 1100 ng/dL [facility] Comment:For additional infor matsylvain, please refer tohttp://education.[employer]/faq/ZuahxUtpnxciviolwDRJLRLLRZ758(This link is being provided for informational/educational purposes only.)This test was developed and its analytical performancecharacteristics have been determined by [employer] [place], [place]. It hasnot been cleared or approved by the U.S. Food and DrugAdministration. This assay has been validated pursuantto the CLIA regulations and is used for clinicalpurposes.THIS TEST WAS PERFORMED AT:[id number] [place] [address]LPXRRENTONY ELIZABETH MD,PHD 06/25/2025 10:4 0 AM EST 06/25/2025 12:09 PM EST us Generic External Data Provider LAB BLOOD ORDERAB LES Final Result [facility] [address] [place] [phone] * POCT Glucose (06/25/2025 9:26 AM EST) Glucose Blood, POC 135 60 - 200 mg/dL QC Media Lot # [id number] Lot# Expiration Date 3, Blood Capillary blood specimen / Unknown 06/25/2025 9:26 AM EST us Nola Yadav ANP POINT OF CARE TEST ENTER/EDIT OR DERABLES Final Result * (ABNORMAL) POCT HGB A1C (02/19/2025 2:47 PM EDT) Hemoglobin A1C 6.1(A) 4.0 - 5.7 % QC Media Lot # [id number] Lot# Expiration Date 3, Blood 02/19/2025 2:47 PM EDT us Nola Yadav ANP POINT OF CARE TEST ENTER/EDIT OR DERABLES Final Result * (ABNORMAL) Albumin, Random Urine W/Creatinine (12/27/2024 8:23 AM EDT) Creatinine, Urine 158.59 mg/dL [facility] Microalbumin Urine 252.0 mg/L [facility] Microalbum Creatinine Ratio Ur 158.9(H) <30 ug/mg cr [facility] Comment:Albumin/Creatinine R atio Reference Ranges: Normal: < 30 ug/mg creatinine Microalbuminuria: 30 - 300 ug/mg creatinineClinical Albuminuria: > 300 ug/mg creatinine Urine (Urine, Random) 12/27/2024 8:23 AM EDT 12/27/2024 11:40 AM EDT us Nola Yadav ANP LAB URINE ORDERABLES Final Resul t Performing Organization Address City/[facility] Co de Phone Number [facility] [address] [place] [address] [phone] * Lipid Panel, Standard (07/31/2024 10:23 AM EST) Triglycerides 60 <150 mg/dL [facility] Comment:Desirable Triglyceri de: less than 150 mg/dLBorderline High Triglyceride 150-199 mg/dLHigh Triglyceride: 200-499 mg/dLVery High Triglyceride: greater than or equal to 5OO mg/dL Cholesterol 143 <200 mg/dL [facility] Comment:Desirable Cholestero l: less than 200 mg/dLBorderline High Cholesterol: 200-239 mg/dLHigh Cholesterol: greater than 239 mg/dL LDL Cholesterol Calculated 78 <100 mg/dL [facility] Comment:Desirable LDL: less than 100 mg/dLNear [...] 10:23 AM EST 07/31/2024 11:45 AM EST [facility] LAB BLOOD ORDERABLES Final Resul t Performing Organization Address City/[facility]/ZIP Co de Phone Number [facility] [address] [place] [address] [phone] * (ABNORMAL) Hm Colonoscopy (09/23/2021) Colonoscopy Abnormal(A ) Normal 09/23/2021 Historical Provider HEALTH MAINTENANCE Final Result * HEPATITIS C AB W/REFL TO HCV RNA, QN, PCR (04/03/2021 12:01 PM EDT) HEPATITIS C ANTIBODY NON-REACT TRAVON NON-REACT TRAVON [facility] INDEX 0.02 <1.00 [facility] Comment: HCV antibody was non-reactive. There is no laboratory evidence of HCV infection. In most cases, no further action is required. However, if recent HCV exposure is suspected, a test for HCV RNA (test code 03531) is suggested. For additional information please refer to http://Miradore.Localize Direct/faq/LQG00y2 (This link is being provided for informational/ educational purposes only.) 04/03/2021 12:0 1 PM EDT us Nola Yadav ANP HISTORICAL/NON ORDERABLE LABS Fi nal Result Performing Organization Address [facility] de Phone Number [facility] [address] * HIV 1/2 ANTIGEN/ANTIBODY,FOURTH GENERATION W/RFL (04/03/2021 12:01 PM EDT) Pathologist [facility] HIV-1/2 ANTIGEN AND ANTIBODIES, 4TH GENERATION W/ REFLEX NON-REACT TRAVON NON-REACT TRAVON [facility] Comment: HIV-1 antigen and HIV-1/HIV-2 antibodies were not detected. There is no laboratory evidence of HIV infection. PLEASE NOTE: This information has been disclosed to you from records whose confidentiality may be protected by state law. If your state requires such protection, then the state law prohibits you from making any further disclosure of the information without the specific written consent of the person to whom it pertains, or as otherwise permitted by law. A general authorization for the release of medical or other information is NOT sufficient for this purpose. For additional information please refer to http://Miradore.Localize Direct/faq/KJH822 (This link is being provided for informational/ educational purposes only.) The performance of this assay has not been clinically validated in patients less than 2 years old. 04/03/2021 12:0 1 PM EDT us Nola ROGERS LAB BLOOD ORDERABLES Final Resul t Performing Organization Address [facility] Co de Phone Number [facility] [address] [place] [address], from Last 3 Months or Most Recently Relevant to Health Maintenance Additional Health Concerns Active Problems Noted Date Diagnosed Date Help patients manage their type 2 diabetes 07/05 Weekly blood pressure task 07/05/2025 Help patients manage their type 2 diabetes 07/05 Patient has chronic kidney disease 07/05/2025 Weekly blood pressure task 07/05/2025 Patient has chronic kidney disease 07/05/2025 Weekly blood pressure task 07/08/2025 Weekly blood pressure task 07/08/2025 Patient has chronic kidney disease 07/08/2025 Patient has chronic kidney disease 07/08/2025 Insurance [facility] C3 DENTAL-[facility] MEDICAID STAND ADULT Care Teams Fur Feeder Relationship Specialty Start Date End Date Nola Yadav ANP [address] [place] [phone] PCP - General Family Medicine 04/03/21 Mati Mistry MD [address] [place] [address] [address] [place] [phone] Urology 03/25/25
--- OUTSIDE RECORDS SUMMARY | 2025-07-30 07:26 | XMS_ITS | Encounter Summary ---
Author Organization [employer] [facility] Address [address] [facility] 7t [place] [address] Care Team Providers Care Vegetable Washer Name Role Phone Nola Yadav Primary Care Provider [phone] Mati Mistry MD Unavailable [phone] Encounter Details Date Type Department Care Team (Latest Contact Info) Description 10/13/[address] [facility] CONVERSIONS Dental, Provider, DDS Social [...] Description 09/10/2025 10:15 AM EST Office Visit [facility] ADULT DENTAL [address] [place] [address] Ingrid Odonnell [address] [place] [address] 09/24/2025 9:30 AM EST Office Visit [facility] MEDICINE [address] [place] [address] Nola Yadav ANP [address] [place] [address] documented as of this encounter Visit Diagnoses Not on filedocumented in this encounter Care Teams Vegetable Washer Relationship Specialty Start Date End Date Nloa Yadav ANP [address] [place] [address] PCP - General Family Medicine 04/03/21 Mati Mistry MD [address] [place] [address] Urology 03/25/25 documented as of this encounter
--- OUTSIDE RECORDS SUMMARY | 2025-07-30 07:26 | XMS_ITS | Encounter Summary ---
Author Organization [employer] [facility] Address [address] [facility] 7t [place] [address] Care Team Providers Care Extended Day Teacher Name Role Phone Nola Yadav Primary Care Provider [phone] Mati Mistry MD Unavailable [phone] Encounter Details Date Type Department Care Team (Latest Contact Info) Description 01/08/2022 Abstract [facility] CONVERSIONS Dental, Provider, DDS Social History Tobacco [...] Description 09/10/2025 10:15 AM EST Office Visit [facility] ADULT DENTAL [address] [place] [address] Ingrid Odonnell [address] [place] [address] 09/24/2025 9:30 AM EST Office Visit [facility] MEDICINE [address] [place] [address] Nola Yadav ANP [address] [place] [address] documented as of this encounter Visit Diagnoses Not on filedocumented in this encounter Care Teams Extended Day Teacher Relationship Specialty Start Date End Date Nola Yadav ANP [address] [place] [address] PCP - General Family Medicine 04/03/21 Mati Mistry MD [address] [place] [address] Urology 03/25/25 documented as of this encounter
--- OUTSIDE RECORDS SUMMARY | 2025-07-30 07:26 | XMS_ITS | Encounter Summary ---
Author Organization [employer] Address [address] [place] [address] Care Team Providers Care Tanning Wheel Filler Name Role Phone Nola Yadav SUE Primary Care Provider [phone] Mati Mistry MD Unavailable [phone] Encounter Details Date Type Department Care Team (Late st Contact Info) Description 07/28/2023 Orders Only [facility] MEDICINE [address] [place] [address] Jacob Torrez, PharmD [address] [place] [address] Social History Tobacco Use Types Packs/Day Years [...] Description 09/10/2025 10:15 AM EST Office Visit [facility] ADULT DENTAL [address] [place] [address] [place], [place] [place] [address] 09/24/2025 9:30 AM EST Office Visit [facility] MEDICINE [address] [place] [address] Nola Yadav ANP [address] [place] [address] documented as of this encounter Visit Diagnoses Not on filedocumented in this encounter Additional Health Concerns Assessment Noted Time PHQ-9 Depression Total Score: 0 07/26/20 23 2:54 PM EST documented as of this encounter Care Teams Tanning Wheel Filler Relationship Specialty Start Date End Date Nola Yadav ANP [address] [place] [address] PCP - General Family Medicine 04/03/21 Mati Mistry MD [address] [place] [address] Urology 03/25/25 documented as of this encounter
--- NOTE | 2025-07-30 08:35 | W.PM.OPN ---
Operative Note Operative Note Date of Service: 07/30/25 Narrative: Preoperative diagnosis: Elevated PSA Postoperative diagnosis: Elevated PSA Procedure: 1. transrectal ultrasound measurement of prostate 2. transrectal ultrasound-guided pudendal nerve block 3. transrectal ultrasound-guided prostate biopsy 12 core Surgeon: Dr. Mati Mistry Anesthetic: 10cc 1% lidocaine Indications for procedure: Elevated PSA - 12 Counselling: Technical aspects, risks and benefits of proposed procedure were discussed in full. All questions have been answered, written consent has been obtained and patient agrees to proceed. Procedure: The patient was brought into the procedure area and placed in a left lateral decubitus position. Patient identity confirmed. Perioperative antibiotics confirmed. Safety pause time out performed. BRIONNA was performed to dilate rectal sphincter Iodine 10cc with 60 cc gel was placed per rectum to reduce infection risk using a catheter tip syringe. 8 Hz Teofilo rectal end-fire ultrasound probe was placed transrectally without difficulty. The prostate was visualized. Seminal vesicles were normal. Prostate margins were clearly demarcated. Bladder was seen superiorly. No cystic structures were noted No calcifications were noted at the surgical margin The prostate was otherwise heterogenous in nature - significant number of BPH whorls seen The prostate was measured in 3 dimensions Prostatic Width: 6.1 cm Prostatic Height: 5.0 cm Urethral Length: 6.5 cm Total volume equals : 100 ml An ultrasound-guided pudendal nerve block was performed using a 22 gauge spinal needle in the sagittal plane. 4 cc of 1% lidocaine placed at the junction of each seminal vesicle and 2 cc placed at the apex of the prostate. A 12 core biopsy was performed with 6 cores each side using an 18 gauge prostate biopsy gun. Two cores each were taken at the prostate apex, mid and base on each side. Cores were spaced between lateral and medial aspects. Each core was examined as placed on specimen foam as part of supplier quality engineering manager to ensure a minimum 1 cm of length and minimal discontinuity. He tolerated the procedure well with minimal rectal bleeding. Blood pressure remained stable following procedure. He was able to ambulate to bathroom after 5 minutes. Printed instructions regarding antibiotic use and common adverse events from the procedure such as low-grade temperature, potential infection and bleeding were given. He understands to call the office or go to an emergency room should any of these events arise. Pathology: 12 core prostate biopsy. CPT code 81428: Transrectal ultrasound; this is a diagnostic test for evaluation of the prostate and surrounding structures, looking for abnormalities or suspicious areas worrisome for cancer CPT code 45538: Biopsy, prostate; needle or punch, single or multiple, any approach CPT code 88675: Ultrasonic guidance for needle placement (eg, biopsy, aspiration, injection, localization device), imaging supervision and interpretation
[2025-07-30] MEDS: Lidocaine HCl 1 % MPF 5 ML VIAL 10 ML SUBCUT (08:43)
== END 2025-07-30 07:24 | disposition home or self-care (01) ==
LOC: HO.US 07:23
PROVIDERS: PCP Nurse Practitioner Primary Care; Visit Provider Urology
DX: R97.20 Elevated prostate specific antigen [PSA] (principal)
CPT/HCPCS: 55700; 76942; 88305; J2003

== ENCOUNTER → 2025-07-30 07:23 | Outpatient (BNV) | payer MEDICAID, SELFPAY | PROVIDERS: PCP Nurse Practitioner Primary Care; Visit Provider Urology | DX: R97.20 Elevated prostate specific antigen [PSA] (principal) | CPT/HCPCS: 55700; 76872; 76942 ==

== ENCOUNTER 2025-08-08 15:04 | Outpatient (AMB) | payer MEDICAID, SELFPAY ==
--- NOTE | 2025-08-08 15:15 | A.OFFVIS_ITS ---
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 He is a patient of Dr. Yadav. He seen for the following urologic conditions - lower urinary tract symptoms - erectile dysfunction Follow-up prostate biopsy Negative Would add finasteride for large prostate High-dose tadalafil protocol with 10 mg daily and up to 40 mg on demand PSA continues to rise 07/16 12.6 Testosterone borderline low 06/15 300 Review lab work four-month Would start testosterone if necessary Erectile dysfunction in setting of diabetes Progressive Concurrent diagnoses include hypertension, diabetes Good response to high-dose tadalafil protocol Lower urinary tract symptoms Initial symptoms of urinary hesitancy and weakness of stream Ongoing for the past 2-3 years in progressive Was associated with episode of hematuria in March 2021 Cystoscopy 02/10 large bilobar prostate PSA 04/11 7.8, 02/10 6.1, 03/13 7.3 18%, 04/14 5.1 21%, 08/14 7.5 Enlarged prostate 100 g - 08/15 negative biopsy GreenLight laser 09/14 - chronic inflammation on tissue diagnosis Prostate biopsy 08/12 NAD 110gm on US [facility] Medical History Personal history of tobacco use Erectile dysfunction Tubular adenoma Arthritis GERD (gastroesophageal reflux disease) High cholesterol Diabetes Hypertension Surgical History Hx laparoscopic cholecystectomy Hx of prostate biopsy Hx of colonoscopy Hx of foot surgery Hx of foot surgery Family History Father No problems noted. Social History Household Members: Significant Other Housing: Apartment Do you presently have visiting nurse or other home services: No Alcohol intake: never Patient Tobacco Use Status: Former Tobacco user Review of Systems Const Denies chills and Denies fever(s) Card Reports no additional complaints and Denies syncope Resp Denies cough GI Denies abdominal pain and Denies heartburn Reports as per HPI and Denies change in libido Neuro Denies syncope Psych Denies change in libido Endo Denies change in libido Physical Exam Const General: cooperative, healthy appearing, comfortable and no acute distress Orientation/consciousness: patient oriented x3 HEENT Face and sinus: Yes normal facial exam Mouth: moist mucous membranes Neck Neck: Yes normal visual inspection, Yes full ROM and Yes trachea midline Chest Chest palpation & inspection: normal inspection of the chest Resp Effort & Inspection: normal respiratory effort, able to speak in complete sentences and no respiratory distress GI Inspection: Yes normal to inspection Back/Spine/Pelvis Cervical Spine: normal cervical lordosis Thoracic/Lumbar Spine: thoracic and lumbar spine normal to inspection Skin General skin exam: no rashes or lesions noted Neuro General: patient oriented x3, gait normal, tone normal and moves all extremities Extrem General: Yes normal to inspection and Yes capillary refill normal Assessment & Plan Assessment & Plan (1) Erectile dysfunction associated with type 2 diabetes mellitus: Code(s): E11.69 - Type 2 diabetes mellitus with other specified complication; N52.1 - Erectile dysfunction due to diseases classified elsewhere Category: Medical (2) Bladder outlet obstruction: Code(s): N32.0 - Bladder-neck obstruction Category: Medical (3) Elevated PSA: Code(s): R97.20 - Elevated prostate specific antigen [PSA] Category: Medical Plan 4 month follow-up office Lab work Orders: Orders Testosterone, Total 3 Months E11.69 - Type 2 diabetes mellitus with other specified complication, N52.1 - Erectile dysfunction due to diseases classified elsewhere Prostate Specific Antigen 3 Months E11.69 - Type 2 diabetes mellitus with other specified complication, N52.1 - Erectile dysfunction due to diseases classified elsewhere Medications: New finasteride 5 mg PO DAILY 90 tabs 1RF 90 days Patient Instructions: This note is constructed using voice recognition software. While every effort has been made to ensure accuracy per diem nurse errors may have been included. Imaging studies, laboratory and physical exam results were discussed and reviewed in detail. No major barriers to patient understanding were identified. An opportunity to ask questions regarding the treatment plan was provided. All questions were answered. The patient expressed understanding and agreement with the above treatment plan. The patient is aware they should contact our office by phone for worsening of their current condition or the appearance of new urologic symptoms. Compliance is encouraged with any medications and followup testing that is ordered. It is a privilege to participate in the urologic care of your patient. If you have any questions or concerns regarding treatment for the above conditions, or other urologic issues, please do not hesitate to contact me. The office telephone contact is [phone]. Sincerely, Dr Mati Mistry MD, [facility] - Urology Compassionate Specialist Care for the Genitourinary System Coding Level of Care Code Est Pt Level 4 (43042) Diagnoses Erectile dysfunction associated with type 2 diabetes mellitus E11.69; N52.1 Bladder outlet obstruction N32.0 Elevated PSA R97.20
== END 2025-08-08 15:26 | disposition home or self-care (01) ==
PROVIDERS: PCP Nurse Practitioner Primary Care; Visit Provider Urology
DX: E11.69 Type 2 diabetes mellitus with other specified complication (principal); N52.1 Erectile dysfunction due to diseases classified elsewhere; N32.0 Bladder-neck obstruction; R97.20 Elevated prostate specific antigen [PSA]
CPT/HCPCS: 99214

== ENCOUNTER → 2025-08-08 15:04 | Outpatient (BNVA) | payer MEDICAID, SELFPAY | PROVIDERS: PCP Nurse Practitioner Primary Care; Visit Provider Urology | DX: E11.69 Type 2 diabetes mellitus with other specified complication (principal); N52.1 Erectile dysfunction due to diseases classified elsewhere; N32.0 Bladder-neck obstruction; R97.20 Elevated prostate specific antigen [PSA] | CPT/HCPCS: 99212 ==